=== PATIENT | male | born 1935 | race Hispanic/Latino ===

== ENCOUNTER 2016-08-15 17:10 | Inpatient (IN) | payer MEDICARE, OTHER ==
[2016-08-15 17:11] VITALS: PULSE 52
--- NOTE | 2016-08-15 17:18 | ED PDOC ---
Arrival/HPI - General Time Seen by Provider: 08/15/16 17:14 Historian: Assisted EM Caveat: Dementia - History of Present Illness Narrative History of Present Illness (Text): 08/15/16 17:16 A 80 year old male, whose past medical history includes aspiration pneumonia, RI and CAD, who is sent to the emergency department from the residential for chest congestion and hypoxia. HPI and ROS limited due to patient's dementia. The patient is a DNR/DNI. PMD: Dr. Long Past Medical History - Provider Review Nursing Documentation Reviewed: Yes - Infectious Disease Hx of Infectious Diseases: None - Tetanus Immunization Tetanus Immunization: Unknown - Cardiac Hx Pacemaker: No - Pulmonary Hx Respiratory Disorders: No Hx Bronchitis: Yes - Neurological Hx Paralysis: No - HEENT Hx HEENT Disorder: No - Renal Hx Renal Disorder: No - Endocrine/Metabolic Hx Endocrine Disorders: No - Hematological/Oncological Hx Blood Transfusions: Yes Hx Blood Transfusion Reaction: No - Integumentary Hx Dermatological Disorder: Yes Other/Comment: SKIN CANCER, SACRAL WOUND FROM HOME- DTI, BILATERAL FOOT DROP, bilateral heel ulcers - Musculoskeletal/Rheumatological Hx Musculoskeletal Disorders: Yes - Gastrointestinal Hx Gastroesophageal Reflux: Yes - Genitourinary/Gynecological Hx Genitourinary Disorders: Yes Hx Prostate Problems: Yes (bph) - Psychiatric Hx Emotional Abuse: No Hx Physical Abuse: No Hx Substance Use: No - Past Surgical History Past Surgical History: Non-Contributing - Surgical History Hx Cardiac Catheterization: Yes (with stents) - Anesthesia Hx Anesthesia Reactions: No Hx Malignant Hyperthermia: No - Suicidal Assessment Feels Threatened In Home Enviroment: No Family/Social History - Physician Review Nursing Documentation Reviewed: Yes Family/Social History: No Known Family HX Smoking Status: Never Smoked Hx Alcohol Use: No Hx Substance Use: No Hx Substance Use Treatment: No Allergies/Home Meds Allergies/Adverse Reactions: Allergies No Known Allergies Allergy (Verified 08/15/16 17:38) Home Medications: Home Meds Medication Instructions Recorded Confirmed Aspirin 325 mg GT DAILY 08/15/16 08/15/16 Docusate Sodium 100 mg GT DAILY 08/15/16 08/15/16 Famotidine [Pepcid] 20 mg GT DAILY 08/15/16 08/15/16 Lisinopril [Zestril] 2.5 mg GT BID 08/15/16 08/15/16 Metoprolol Succinate [Toprol XL] 12.5 mg GT BID 08/15/16 08/15/16 Multivitamin [Men's Multi-Vitamin] 1 mg GT DAILY 08/15/16 08/15/16 Review of Systems - Review of Systems Systems not reviewed;Unavailable: Dementia Physical Exam - Physical Exam Narrative Physical Exam (Text): - Systems Exam Head: Present: Atraumatic, Normocephalic Pupils: Present: PERRL Extraocular Muscles: Present: EOMI Conjunctiva: Present: Normal Mouth: Present: Moist Mucous Membranes Neck: Present: Normal Range of Motion. No: MIDLINE TENDERNESS, Paraspinal Tenderness Respiratory/Chest: Present: Rhonchi and Rales (right lung). No: Respiratory Distress, Accessory Muscle Use, Tachypneic Cardiovascular: Present: Regular Rate and Rhythm, Normal S1, S2, Peripheral Pulses Present. No: Murmurs Abdomen: Present: Normal Bowel Sounds, No: Tenderness, Peritoneal Signs, Rebound, Guarding, Distention Back: Present: Normal Inspection. No: Midline Tenderness, Paraspinal Tenderness Upper Extremity: Present: Normal Inspection. No: Cyanosis, Edema Lower Extremity: Present: Normal Inspection. No: Edema Neurological: Present: Patient is responsive to verbal stimuli and is able to follow commands. Skin: Present: Warm, Dry, Normal Color. No: Rashes Lymphatic: Present: OX3, NI, NC Psychiatric: Present: Awake and Alert. Vital Signs Reviewed: Yes Vital Signs Pulse Resp BP Pulse Ox 08/15/16 19:11 30 H 98 08/15/16 17:25 82 30 H 161/97 H 99 Temperature: Afebrile Blood Pressure: Hypertensive Pulse: Regular Respiratory Rate: Normal Appearance: Positive for: Non-Toxic Pain Distress: None Mental Status: No: Alert and Oriented X 3, Confused, Agitated, Lethargic, Comatose Medical Decision Making ED Course and Treatment: 08/15/16 17:16 Impression: A 80 year old male with chest congestion and hypoxia. On physical examination the patient is responsive to verbal stimuli and is able to follow commands. On auscultation the patient has rhonchi and rales at the right lung rob. Differential Diagnosis include but are not limited to: aspiration pneumonia vs. dehydration Plan: -- Chest X-ray -- Labs -- Urinalysis -- Zosyn and IV Fluids -- Reassess and disposition Prior Visits: Notes and results from previous visits were reviewed. The patient was last admitted to the hospital for aspirated pneumonia. Progress Notes: 08/15/16 17:20 Dr. Long in the emergency department evaluating the patient. 08/15/16 17:55 Chest x-ray: As read by me shows cardiomegaly and diffuse infiltrate on the right side. Patient received abx for aspiration pneumonia. Case discussed with Dr. Long in great details, who agrees with the plan to admit the patient to Med/Surg under his services. He states to give the patient Dextrose 5% & 0.45% Sodium Chloride in IV at 75 mls/hr. - Lab Interpretations Lab Results: 08/15/16 17:20 08/15/16 17:20 Lab Results 08/15/16 17:21: POC Glucose (mg/dL) 158 H 08/15/16 17:20: WBC 4.9, RBC 2.86 L, Hgb 9.2 L, Hct 28.6 L, MCV 100.0, MCH 32.2 , MCHC 32.2, RDW 15.7 H, Plt Count 192, MPV 9.8, Gran % 76.5 H, Lymph % (Auto) 13.4 L, Stanley % (Auto) 8.7 H, Eos % (Auto) 1.2 L, Baso % (Auto) 0.2, Gran # 3.78 , Lymph # 0.7 L, Stanley # 0.4, Eos # 0.1, Baso # 0.01, PT 13.6 H, INR 1.26 H, APTT 31.1 H, Sodium 142, Potassium 3.4 L, Chloride 102, Carbon Dioxide 31, Anion Gap 12, BUN 41 H, Creatinine 0.6, Est GFR ( Amer) > 60, Est GFR ( Non-Af Amer) > 60, Random Glucose 133 H, Calcium 8.5, Total Bilirubin 0.8, AST 28, ALT 24, Alkaline Phosphatase 55, Total Protein 6.1, Albumin 3.0, Globulin 3.1, Albumin/Globulin Ratio 1.0 L I have reviewed the lab results: Yes - RAD Interpretation Radiology Orders: 08/15/16 17:23 CHEST PORTABLE [RAD] Stat - Medication Orders Current Medication Orders: Albuterol/Ipratropium (Duoneb 3 Mg/0.5 Mg (3 Ml) Ud) 3 ml IH H2ATVBC [facility] Aspirin (Aspirin) 325 mg GT DAILY [facility] Docusate Sodium (Colace Liquid) 100 mg GT DAILY [facility] Famotidine (Pepcid) 20 mg GT DAILY [facility] Dextrose/Sodium Chloride (Dextrose 5%/0.45% Ns 1000 Ml) 1,000 mls @ 50 mls/hr IV .Q20H [facility] Lisinopril (Zestril) 2.5 mg GT BID [facility] Metoprolol Tartrate (Lopressor) 25 mg PO BID [facility] Discontinued Medications Sodium Chloride (Sodium Chloride 0.9%) 1,000 mls @ 1,000 mls/hr IV .Q1H [facility] Stop: 08/15/16 18:24 Last Admin: 08/15/16 18:11 Dose: 1,000 MLS/HR eMAR Start Stop Document 08/15/16 18:11 JOL (Rec: 08/15/16 18:12 [id number] Intravenous Solution Start Date 08/15/16 Start Time 18:12 End Date 08/15/16 End time 19:12 Total Infusion Time 60 Piperacillin Sod/Tazobactam Sod (Zosyn 4.5 Gm In Ns 100ml) 100 mls @ 200 mls/ hr IVPB STAT [facility] PRN Reason: Protocol Stop: 08/15/16 17:54 Last Admin: 08/15/16 18:12 Dose: 200 MLS/HR eMAR Start Stop Document 08/15/16 18:12 JOL (Rec: 08/15/16 18:12 [id number] Intravenous Solution Start Date 08/15/16 Start Time 18:12 End Date 08/15/16 End time 18:42 Total Infusion Time 30 Magnesium Sulfate/Dextrose (Magnesium Sulfate 1 Gm/100 Ml D5w) 100 mls @ 100 mls/hr IVPB ONCE ONE Stop: 08/15/16 19:13 Last Admin: 08/15/16 19:17 Dose: 100 MLS/HR eMAR Start Stop Document 08/15/16 19:17 JOL (Rec: 08/15/16 19:17 [id number] Intravenous Solution Start Date 08/15/16 Start Time 19:17 End Date 08/15/16 End time 20:17 Total Infusion Time 60 Dextrose/Sodium Chloride (Dextrose 5%/0.45% Ns 1000 Ml) 1,000 mls @ 75 mls/hr IV .[id number] [facility] Last Admin: 08/15/16 19:17 Dose: 75 MLS/HR eMAR Start Stop Document 08/15/16 19:17 JERMAN (Rec: 08/15/16 19:17 JOL [id number]) Intravenous Solution Start Date 08/15/16 Start Time 19:17 Metoprolol Succinate (Toprol Xl) 12.5 mg PO BID [facility] Potassium Chloride (K-Dur 20 Meq Er Tab) 40 meq PO STAT STA Stop: 08/15/16 18:15 Last Admin: 08/15/16 19:17 Dose: 40 MEQ - Scribe Statement The provider has reviewed the documentation as recorded by the Christianoibyamile Awad Provider Scribe Attestation: All medical record entries made by the Scribe were at my direction and personally dictated by me. I have reviewed the chart and agree that the record accurately reflects my personal performance of the history, physical exam, medical decision making, and the department course for this patient. I have also personally directed, reviewed, and agree with the discharge instructions and disposition. Disposition/Present on Arrival - Present on Arrival Any Indicators Present on Arrival: No History of DVT/PE: No History of Uncontrolled Diabetes: No Urinary Catheter: No History Surgical Site Infection Following: None - Disposition Have Diagnosis and Disposition been Completed?: Yes Diagnosis: Pneumonia Disposition: HOSPITALIZED Disposition Time: 17:20 Patient Plan: Admission Patient Problems: Current Active Problems Problem Status Diagnosed Altered mental status Acute Dysphagia Acute Condition: FAIR
[2016-08-15] MEDS ORDERED: Sodium Chloride 0.9% 1,000 ML IV STA (17:25)
[2016-08-15] MEDS ORDERED: Piperacill/Tazo 4.5gm in NS 100 ML IVPB STA (17:25)
[2016-08-15 17:31] LABS: ADD MANUAL DIFF? NO
[2016-08-15 17:37] LABS: BASO # 0.01 K/mm3 (0.0-2.0); BASO % 0.2 % (0.0-3.0); EOS # 0.1 (0.0-0.7); EOS % 1.2 % (1.5-5.0); GRAN # 3.78 (1.4-6.5); GRAN % 76.5 % (50.0-68.0); HEMATOCRIT 28.6 % (42.0-52.0); LYMPH # 0.7 (1.2-3.4); LYMPH % 13.4 % (22.0-35.0); MEAN CORPUSCULAR HEMOGLOBIN 32.2 pg (25.0-35.0); MEAN CORPUSCULAR HGB CONC 32.2 g/dl (31.0-37.0); MEAN PLATELET VOLUME 9.8 fl (7.0-11.0); MONO # 0.4 (0.1-0.6); MONO % 8.7 % (1.0-6.0); PLATELET COUNT 192 10^3/uL (120.0-450.0); RED CELL DISTRIBUTION WIDTH 15.7 % (11.5-14.5); WHITE BLOOD COUNT 4.9 10^3/ul (4.5-11.0)
[2016-08-15 17:48] LABS: ALKALINE PHOSPHATASE 55 U/L (38-133); ALT/SGPT 24 U/L (7-56); AST/SGOT 28 U/L (15-59); BILIRUBIN,TOTAL 0.8 mg/dL (0.2-1.3); BLOOD UREA NITROGEN 41 mg/dL (7-21); CALCIUM 8.5 mg/dL (8.4-10.5); CARBON DIOXIDE 31 mmol/L (21-33); CHLORIDE 102 mmol/L (98-107); GFR AFRICAN-AMERICAN > 60; GLUCOSE,RANDOM 133 mg/dL (70-110); POTASSIUM 3.4 mmol/L (3.6-5.0); SODIUM 142 mmol/L (132-148); TOTAL PROTEIN 6.1 g/dL (5.8-8.3)
[2016-08-15 17:52] LABS: INR 1.26 (0.93-1.08); PARTIAL THROMBOPLASTIN TIME 31.1 Seconds (23.7-30.8)
--- NOTE | 2016-08-15 18:10 | RAD ---
HISTORY: cough COMPARISON: 07/03/2016 FINDINGS: LUNGS: There is extensive perihilar consolidation, larger on the right. PLEURA: There are probable bilateral small pleural effusions. No pneumothorax. CARDIOVASCULAR: There is severe cardiomegaly. Atherosclerotic aortic arch calcifications are present. OSSEOUS STRUCTURES: No significant abnormalities. VISUALIZED UPPER ABDOMEN: Normal. OTHER FINDINGS: None. IMPRESSION: Findings may represent bilateral perihilar consolidations, worse on the right alternatively, findings could be related to congestive heart failure and pulmonary edema. Clinical correlation and follow-up is advised
[2016-08-15] MEDS ORDERED: Potassium Chloride 20 mEq ER Tab PO STA (18:14)
[2016-08-15] MEDS ORDERED: Dextrose 5%/0.45% NS 1,000 ML IV SCH (18:30)
[2016-08-15 20:17] LABS: PH,URINE 6.5 (4.7-8.0); URINE BILIRUBIN NEGATIVE (NEGATIVE); URINE BLOOD MODERATE (NEGATIVE); URINE GLUCOSE (UA) NEGATIVE (NEGATIVE); URINE KETONE NEGATIVE (NEGATIVE); URINE LEUKOCYTE ESTERASE LARGE Leu/uL (NEGATIVE); URINE PROTEIN 100 mg/dL (<30 mg/dL)
[2016-08-15 20:23] LABS: URINE APPEARANCE CLEAR (CLEAR)
[2016-08-15 20:24] LABS: URINE AMORPHOUS SEDIMENT TRACE; URINE BACTERIA SMALL (NEG); URINE EPITHELIAL CELLS MANY /hpf (0-5); URINE RBC 25 - 30 /hpf (0-2); URINE WBC 15 - 20 /hpf (0-6)
[2016-08-15] MEDS: Dextrose 5%/0.45% NS 1,000 ML IV SCH (21:05)
[2016-08-15 21:39] VITALS: BMI 21.4
[2016-08-15] MEDS: Meropenem 1g/NS 100mL IVPB 100 ML IVPB SCH (21:57)
[2016-08-16] MEDS: Albuterol-Ipratrop 3 mg / 0.5 (3 ml) UD IH SCH ×4 (02:40→20:16)
--- NOTE | 2016-08-16 05:09 | CP.PCM.PN ---
Subjective - Date & Time of Evaluation Date of Evaluation: 08/16/16 Time of Evaluation: 05:09 - Subjective Subjective: Patient was evaluated at bedside because nurse calls and tells that BP is 151/97 , HR 84 /min ,Pulse ox 97% 2L/min.And he is lethargic. She spoke to when she got orders and Dr. Long is aware of lethargy. Patient is arousable with deep painful stimuli-sternal rub. Medical record was reviewed. This 80 year old male is here from a care home for chest congestion and hypoxia,AMS, anemia , hypokalemia. Has PMH of fracture pubic ramus spinal stenosis CAD multiple stents atrial fibrillation retroperitoneal bleed neruopathy in legs. multiple falls HLD HTN CVA's. Left carotid disease. Osteomyelitis of left heel BPH UTI's PNA bilateral foot drop. Skin cancer. Vascular dementia. Indwelling catheter. Cholecysterctomy. L3 Kyphoplasty. Gastrostomy tube placement. Objective - Vital Signs/Intake and Output Vital Signs (last 24 hours): Temp Pulse Resp BP Pulse Ox 97.6 F 82 18 136/100 H 98 08/15/16 20:47 08/15/16 17:25 08/15/16 20:47 08/15/16 20:47 08/15/16 19:11 Intake and Output: 08/15/16 08/16/16 18:59 06:59 Output Total 150 Balance -150 - Medications Medications: Current Medications Albuterol/Ipratropium (Duoneb 3 Mg/0.5 Mg (3 Ml) Ud) 3 ml IH [id number] Last Admin: 08/16/16 02:40 Dose: 3 ml Aspirin (Aspirin) 325 mg GT DAILY [facility] Docusate Sodium (Colace Liquid) 100 mg GT DAILY [facility] Famotidine (Pepcid) 20 mg GT DAILY [facility] Dextrose/Sodium Chloride (Dextrose 5%/0.45% Ns 1000 Ml) 1,000 mls @ 50 mls/hr IV .Q20H [facility] Last Admin: 08/15/16 21:05 Dose: Not Given Meropenem 1g/NS 100mL IVPB (Meropenem 1g/Ns 100ml Ivpb) 100 mls @ 100 mls/hr IVPB Q12 [facility] PRN Reason: Protocol Stop: 08/29/16 22:01 Last Admin: 08/15/16 21:57 Dose: 100 mls/hr Lisinopril (Zestril) 2.5 mg GT BID [facility] Metoprolol Tartrate (Lopressor) 25 mg GT BID [facility] - Labs Labs: PT 13.6 Seconds (9.9-11.8) H 08/15/16 17:20 INR 1.26 (0.93-1.08) H 08/15/16 17:20 APTT 31.1 Seconds (23.7-30.8) H 08/15/16 17:20 - Constitutional Appears: No Acute Distress - Head Exam Head Exam: ATRAUMATIC, NORMAL INSPECTION - Eye Exam Eye Exam: Normal appearance - ENT Exam ENT Exam: Normal External Ear Exam - Neck Exam Neck Exam: Normal Inspection - Respiratory Exam Respiratory Exam: NORMAL BREATHING PATTERN - Cardiovascular Exam Cardiovascular Exam: absent: JVD - GI/Abdominal Exam GI & Abdominal Exam: absent: Distended - Rectal Exam Rectal Exam: Deferred - Extremities Exam Extremities Exam: Normal Inspection - Back Exam Back Exam: NORMAL INSPECTION - Neurological Exam Neurological Exam: Altered - Psychiatric Exam Additional comments: can not evaluate. - Skin Skin Exam: Normal Color Assessment and Plan - Assessment and Plan (Free Text) Assessment: A/P: Elevated blood pressure. AMS. Hypokalemia. Anemia. Give morning dose of lopressor now instead of at 10:00AM. Discussed with Dr. Long. Will get CT head without contrast.
--- NOTE | 2016-08-16 06:33 | CT ---
EXAM: CT Head Without Intravenous Contrast. CLINICAL HISTORY: 80 years old, male; Signs and symptoms; Malaise or fatigue; Additional info: Lethargy TECHNIQUE: Axial computed tomography images of the head/brain without intravenous contrast. This CT exam was performed using one or more of the following dose reduction techniques: automated exposure control, adjustment of the mA and/or kV according to patient size, and/or use of iterative reconstruction technique. EXAM DATE/TIME: 08/16/2016 5:33 AM COMPARISON: Prior head CT of 05/21/2016 the FINDINGS: BRAIN: Focal areas of low density are seen in the basal ganglia bilaterally, most compatible with bilateral old/chronic lacunar infarcts. Extensive areas of low density seen in the white matter bilaterally. This is a nonspecific finding, however, is most likely secondary to marked chronic small vessel ischemic changes, in a patient of this age. Diffuse, marked, age-related cortical atrophy and ventriculomegaly. No significant acute abnormality identified. No acute hemorrhage seen within the brain. No acute extra-axial fluid collections visualized. No evidence of significant mass effect within the brain. VENTRICLES: See above. BONES/JOINTS: No acute fractures or other acute bony abnormality noted. SOFT TISSUES: No acute abnormality of the visualized soft tissues is seen. VASCULATURE: Atherosclerotic calcification. SINUSES: Visualized paranasal sinuses appear clear. MASTOID AIR CELLS: Mastoid air cells appear clear. IMPRESSION: - No acute findings seen within the brain. - See above for remaining findings.
[2016-08-16 06:41] LABS: ADD MANUAL DIFF? NO
[2016-08-16 06:47] LABS: BASO # 0.01 K/mm3 (0.0-2.0); BASO % 0.3 % (0.0-3.0); EOS # 0.1 (0.0-0.7); GRAN # 2.96 (1.4-6.5); GRAN % 75.1 % (50.0-68.0); HEMATOCRIT 28.3 % (42.0-52.0); LYMPH # 0.5 (1.2-3.4); LYMPH % 12.2 % (22.0-35.0); MEAN CORPUSCULAR HEMOGLOBIN 32.2 pg (25.0-35.0); MEAN CORPUSCULAR HGB CONC 32.2 g/dl (31.0-37.0); MEAN PLATELET VOLUME 9.4 fl (7.0-11.0); MONO # 0.4 (0.1-0.6); MONO % 10.4 % (1.0-6.0); PLATELET COUNT 184 10^3/uL (120.0-450.0); RED CELL DISTRIBUTION WIDTH 15.3 % (11.5-14.5); WHITE BLOOD COUNT 3.9 10^3/ul (4.5-11.0)
[2016-08-16 07:17] LABS: BLOOD UREA NITROGEN 33 mg/dL (7-21); CALCIUM 8.1 mg/dL (8.4-10.5); CARBON DIOXIDE 31 mmol/L (21-33); CHLORIDE 107 mmol/L (98-107); GFR AFRICAN-AMERICAN > 60; GLUCOSE,RANDOM 108 mg/dL (70-110); POTASSIUM 3.3 mmol/L (3.6-5.0); SODIUM 145 mmol/L (132-148)
[2016-08-16] MEDS: Acetylcysteine 20% Inhal Soln (4ml) IH SCH ×2 (07:53→20:16)
[2016-08-16] MEDS: Potassium Chloride 20 mEq 100 ML IVPB SCH ×2 (08:28→13:03)
--- NOTE | 2016-08-16 09:16 | CON ---
DATE: 08/16/2016 REASON FOR CONSULTATION: Pneumonia. REFERRING PHYSICIAN: Dr. Cornelia Long. History is obtained via extensive discussion with the night nurse. I have also reviewed the chart at length. HISTORY OF PRESENT ILLNESS: The patient is a 80-year-old chronically ill male, alf resident, with past medical history significant for chronic dysphagia, status post percutaneous endoscopic gastrostomy tube placement, recurrent aspiration pneumonia, multiple strokes; coronary artery disease, multiple cardiac stents; pulmonary hypertension, atrial fibrillation - who was transferred from the alf -- for increasing lethargy, cough, and oxygen desaturation. The patient is not short of breath at rest. The nurse does note some very thick mucus secretions. There is no history of chest pain, coughing up of blood or chest pain - made worse with deep respirations. There is no history of temperatures, chills or infectious exposure. There is no history of night sweats, weight loss or appetite change prior to the above events. No history of leg or calf pains. No history of syncope or diaphoresis. No history of recent travel or trauma. REVIEW OF SYSTEMS: No history of nausea, vomiting or diarrhea. No acute urinary symptoms. No new musculoskeletal complaints. Rest of review of systems is negative. ALLERGIES: No known allergies. SOCIAL HISTORY: Negative for tobacco, negative for alcohol. FAMILY HISTORY: No inheritable diseases. HOME MEDICATIONS: Include multivitamins, Toprol, Zestril, DuoNeb, Pepcid and aspirin. PHYSICAL EXAMINATION: GENERAL: The patient is not short of breath at rest. He is not using accessory muscles for breathing. He is lethargic, but arousable. VITAL SIGNS: Temperature is 97.6, pulse 84, respirations 18, blood pressure 151 /97. Oxygen saturation on nasal cannula is 98%. HEENT: Normocephalic, atraumatic. NECK: No JVD. CARDIOVASCULAR: Positive S1, S2. No S3. LUNGS: Crackles at both bases. Minimal bilateral rhonchi. No wheezing. EXTREMITIES: No clubbing, cyanosis, or edema. Calves are nontender to palpation. GASTROINTESTINAL: Abdomen is soft, nontender, nondistended. Bowel sounds are positive. There is a PEG tube in place. SKIN: No acute rash. NEUROLOGIC: Limited at the present time. PERTINENT LABORATORY DATA: Chest x-ray was done yesterday and reviewed. There are patchy bilateral infiltrates noted. There is possible underlying pulmonary vascular congestive changes. CBC: White count 3.9, hemoglobin 9.1, hematocrit 28.3, platelets of 184. INR 1.26. Complete metabolic profile: Potassium 3.4, BUN 41, glucose 133. Rest of the metabolic profile is within normal limits. Urinalysis in the Emergency Room: Urine nitrite positive, urine leukocyte esterase large. IMPRESSION: 1. Recurrent aspiration pneumonia. 2. Mild bronchospasm. 3. Chronic dysphagia. 4. History of multiple strokes. 5. Coronary artery disease. 6. Rule out urinary tract infection. PLAN: Again, I did discuss the case with the night nurse at length and also reviewed the chart. The patient presents to [facility] - transferred from the alf - for increasing lethargy, cough, and oxygen desaturation. I did review the x-ray as above. There are bilateral patchy infiltrates noted. As above, I do question whether there are underlying pulmonary vascular congestive changes. I will order a stat B-type natriuretic peptide to be done this morning. Cardiology evaluation with Dr. Hartman has been ordered. The patient does have chronic atrial fibrillation. On physical exam, the patient is in mild bronchospasm. However, there is no significant alveolar arterial gradient. Oxygen saturation on nasal cannula is 98%. The nurse does report the patient is coughing up thick secretions. I will add Mucomyst-- to the already ordered DuoNeb treatments. I will also order aspiration precautions. Pancultures have been ordered and will be analyzed when feasible. The patient has been started on antibiotic therapy - as per Dr. Bhatt. Procalcitonin has been ordered. The patient does appear more stable this morning - compared to yesterday. However, his overall status/prognosis remains very guarded at best. I will discuss the above with Dr. Long this morning. Thank you very much for this pulmonary consultation. Audi Denis MD cc: [id number] TT: 08/16/2016 09:15:48 Confirmation # [id number] Dictation # [id number] dhaval TOLBERT
--- NOTE | 2016-08-16 09:24 | HP ---
HISTORY OF PRESENT ILLNESS: A 80-year-old male sent from [facility] after being reported to have been congested with a low blood oxygen. The patient arrived in the Emergency Room and was l ethargic. PAST MEDICAL HISTORY: Dementia, chronic cerebral ischemic changes with chronic lacunar infarcts that are old, he has a history of carotid stenosis on the left, a history of atrial fibrillation, bilater al footdrop, herniated lumbar disks, hypertension, pneumonia, BPH, urinary tract infections, vascular insufficiency, history of pleural effusions, history of aspiration, feeding PEG. ALLERGIES: There are no known allergies to date. SOCIAL HISTORY: Nonsmoker, nondrinker, nondrug user. There is a living will. He is a DNR/DNI. REVIEW OF SYSTEMS: Ten systems are reviewed. Pertinent findings is that the patient is arousable to pain. PHYSICAL EXAMINATION: VITAL SIGNS: His temp was reported as 97.4 rectally, his pulse was 82, his respirations were 22, blo od pressure was 161/97, oxygen sat was reported at 98% on 2 liters of nasal oxygen. HEART: An irregular S1, S2 rhythm with a grade II/ systolic murmur. LUNGS: Show bibasilar rhonchi. No wheezing was audible. ABDOMEN: Soft, scaphoid, positive bowel sounds. Feeding PEG was in place. EXTREMITIES: Show no evidence of edema. LABORATORY DATA: The patient had a sodium 142, potassium 3.4, chloride 102, the CO2 is 31, the BUN i s 41, the creatinine is 0.6. Random blood sugar was 133. Liver function tests were normal. The PT was 13.6 with an INR of 1.26, PTT of 31.1. CBC showed WBC of 4.9, RBC 2.86, hemoglobin 9.2, hematocr it 28.6 while the platelet count was 192. Urinalysis showed small bacteria, large amount of esterase , 25-30 RBCs, 15-20 WBCs, moderate amount of blood, positive for nitrites. The chest x-ray was reported by radiology to show findings suggestive of vascular congestion; however , review of the chest x-ray with the Emergency Room and with pulmonary raises a question as to whethe r there is more symmetric bilateral infiltrates which raises the question of aspiration pneumonia in this patient who is at risk for this. Also, he is a resident of a snf and was recently in [facility] for admission. A CAT scan of the head was performed which showed chronic changes, as per the radiologist's review, with no acute findings. IMPRESSION: An elderly snf resident with multiple medical problems admitted for what clinic ally may look like a pneumonia with bilateral patchy infiltrates that are symmetric on a chest x-ray after review with pulmonary. The patient was pancultured in the Emergency Room and initiated on anti biotics. A consult with infectious disease has been requested. A procalcitonin and a BMP will be re quested. A neurological consult will be requested as well, as well as a cardiology consult. Will co ntinue to monitor the patient closely, maintain his supportive care and respect his DNR/DNI. All cli nical findings have been discussed with pulmonary, with the Emergency Room staff and with the family. Cornelia Long MD cc: [id number] TT: 08/16/2016 09:23:53 dhaval
[2016-08-16] MEDS ORDERED: Metoprolol Succinate 25 mg XL Tab PO SCH (10:00)
[2016-08-16] MEDS: Meropenem 1g/NS 100mL IVPB 100 ML IVPB SCH ×2 (10:21→21:13)
[2016-08-16] MEDS ORDERED: Potassium Chloride 20 mEq/15 ml LIQ UD PO STA (13:16)
--- NOTE | 2016-08-16 14:59 | CON ---
DATE: 08/16/2016 HISTORY: The patient is a 80-year-old male who presented from a halfway with a diagnosis of pne umonia. The patient denies shortness of breath, denies chest pain. PAST MEDICAL HISTORY: Notable for a history of an old inferior wall myocardial infarction with PTCA and stent in the past. Currently, his longstanding neuromuscular disease has left him with ____ response. He is bedbound. SOCIAL HISTORY: The patient lives in a halfway. REVIEW OF SYSTEMS: A 14-point review of systems was free of cardiac symptomatology. PHYSICAL EXAMINATION: VITAL SIGNS: Stable, heart rate is stable. NECK: Negative JVD. LUNGS: Decreased breath sounds without rales. HEART: Reveals S1, S2. EXTREMITIES: Without edema. EKG and laboratories are pending, [employer] is unavailable at this time. IMPRESSION: 1. Pneumonia. 2. Old inferior wall myocardial infarction. 3. Coronary artery disease. 4. Neuromuscular disease. 5. Dysphagia. PLAN: Given these findings, we will review his labs once [employer] is available. There are no acute cardiac issues at this time. Justen Hartman MD cc: [id number] TT: 08/16/2016 14:58:29 Confirmation # [id number] Dictation # [id number] sn
--- NOTE | 2016-08-16 16:07 | CP.PCM.CON ---
History of Present Illness - History of Present Illness History of Present Illness: 80 year old male with PMH of atrial fibrillation, HTN, peripheral vascular disease, history of cerebrovascular accident with left sided carotid artery disease, benign prostatic hyperplasia, dementia, history of left lower lobe healthcare-associated pneumonia was brought in from the half-way because of chest congestion, shortness of breath and lethargy. There was no note of fever, no loss of consciousness, no vomiting, no diarrhea, occasional cough. In the ED , he was noted to be somewhat lethargic. Infectious Diseases consult is requested to further evaluate and manage. Review of Systems - Review of Systems Systems not reviewed;Unavailable: Dementia Past Patient History - Infectious Disease Hx of Infectious Diseases: None - Tetanus Immunizations Tetanus Immunization: Unknown - Past Medical History & Family History Past Medical History?: Yes Past Family History: Reviewed and not pertinent - Past Social History Smoking Status: Smoker Currrent Status Unknown Alcohol: None Drugs: Denies - CARDIAC Hx Pacemaker: No - PULMONARY Hx Respiratory Disorders: No Hx Bronchitis: Yes - NEUROLOGICAL Hx Paralysis: No - HEENT Hx HEENT Problems: No - RENAL Hx Chronic Kidney Disease: No - ENDOCRINE/METABOLIC Hx Endocrine Disorders: No - HEMATOLOGICAL/ONCOLOGICAL Hx Blood Transfusions: Yes Hx Blood Transfusion Reaction: No - INTEGUMENTARY Hx Dermatological Problems: Yes Other/Comment: SKIN CANCER, SACRAL WOUND FROM HOME- DTI, BILATERAL FOOT DROP, bilateral heel ulcers - MUSCULOSKELETAL/RHEUMATOLOGICAL Hx Falls: Yes - GASTROINTESTINAL Hx Gastroesophageal Reflux: Yes - GENITOURINARY/GYNECOLOGICAL Hx Genitourinary Disorders: Yes Hx Prostate Problems: Yes (bph) - PSYCHIATRIC Hx Emotional Abuse: No Hx Physical Abuse: No Hx Substance Use: No - SURGICAL HISTORY Hx Cardiac Catheterization: Yes (with stents) - ANESTHESIA Hx Anesthesia Reactions: No Hx Malignant Hyperthermia: No Meds Allergies/Adverse Reactions: Allergies Allergy/AdvReac Type Severity Reaction Status Date / Time No Known Allergies Allergy Verified 08/15/16 17:38 - Medications Medications: Current Medications Albuterol/Ipratropium (Duoneb 3 Mg/0.5 Mg (3 Ml) Ud) 3 ml [id number] [facility] Last Admin: 08/16/16 02:40 Dose: 3 ml Aspirin (Aspirin) 325 mg GT DAILY [facility] Docusate Sodium (Colace Liquid) 100 mg GT DAILY [facility] Famotidine (Pepcid) 20 mg GT DAILY [facility] Dextrose/Sodium Chloride (Dextrose 5%/0.45% Ns 1000 Ml) 1,000 mls @ 50 mls/hr IV .Q20H [facility] Last Admin: 08/15/16 21:05 Dose: Not Given Meropenem 1g/NS 100mL IVPB (Meropenem 1g/Ns 100ml Ivpb) 100 mls @ 100 mls/hr IVPB Q12 [facility] PRN Reason: Protocol Stop: 08/29/16 22:01 Last Admin: 08/15/16 21:57 Dose: 100 mls/hr Lisinopril (Zestril) 2.5 mg GT BID [facility] Metoprolol Tartrate (Lopressor) 25 mg GT BID [facility] Last Admin: 08/16/16 05:33 Dose: 25 mg Physical Exam - Constitutional Appears: Other (somewhat lethargic but easily arousable and answers few questions) - Head Exam Head Exam: NORMAL INSPECTION - Neck Exam Neck exam: Negative for: Lymphadenopathy, Meningismus - Cardiovascular Exam Cardiovascular Exam: +S1, +S2 - GI/Abdominal Exam GI & Abdominal Exam: Soft. absent: Tenderness Results - Vital Signs Recent Vital Signs: Last Vital Signs Temp 97.6 F 08/15/16 20:47 Pulse 84 08/16/16 05:33 Resp 18 08/15/16 20:47 BP 151/97 H 08/16/16 05:33 Pulse Ox 98 08/15/16 19:11 - Labs Result Diagrams: 08/16/16 05:45 08/16/16 05:45 Labs: Laboratory Results - last 24 hr 08/15/16 18:45 Urine Color yellow Urine Appearance Clear Urine pH 6.5 Ur Specific [place] 1.020 Urine Protein 100 H Urine Glucose (UA) Negative Urine Ketones Negative Urine Blood Moderate H Urine Nitrate Positive H Urine Bilirubin Negative Urine Urobilinogen 4.0 H Ur Leukocyte Esterase Large H Urine RBC 25 - 30 Urine WBC 15 - 20 Ur Epithelial Cells Many Amorphous Sediment Trace Urine Bacteria Small Assessment & Plan - Assessment and Plan (Free Text) Plan: Assessment Consider aspiration pneumonia, healthcare-associated history of left lower lobe healthcare-associated pneumonia atrial fibrillation HTN peripheral vascular disease history of cerebrovascular accident with left sided carotid artery disease benign prostatic hyperplasia dementia Plan started Merrem pending blood cx, sputum; will add Doxycycline as well Reviewed Dr. Denis's evaluation Will follow clinically
[2016-08-16] MEDS: Dextrose 5%/0.45% NS 1,000 ML IV SCH (16:42)
--- NOTE | 2016-08-16 19:34 | CON ---
DATE: 08/16/2016 CHIEF COMPLAINT: Followup altered mental status and confusion. HISTORY OF PRESENT ILLNESS: This is a 80-year-old man with past medical history of chronic atrial fi brillation, was once on Coumadin, history of coronary artery disease, history of small left middle ce rebral artery frontal and parietal infarcts which were embolic in nature, history of spinal disorder, history of bilateral foot drop, history of chronic compression fractures, history of benign prostati c hypertrophy, urinary tract infections, history of left lower lobe healthcare-associated pneumonia, who was brought in from the alf because had chest congestion, shortness of breath and lethar gy. Therefore, I was consulted for his increased lethargy from his baseline. Currently, he is under going workup for underlying pneumonia possibility. He has been put on antibiotics as per ID. His CT head did show some acute intracranial abnormalities. He had some underlying elevated systolic and d iastolic blood pressure when he was brought in as well. Currently, he is minimally verbal as his francisco tejas, moves all extremities, has bilateral foot drop, but is no longer lethargic at this time. CT h ead showed no acute intracranial abnormality, just his old chronic bilateral multifocal infarcts. PAST MEDICAL HISTORY: History of small infarcts in the left MCA distribution, especially the left po sterior frontal parietal which is embolic in nature, history of left carotid artery disease, coronary artery disease status post multiple stents, history of inferior wall WI, spinal stenosis, bilateral foot drop, compression fracture of the spine, BPH, history of chronic afib, was once on Coumadin; his tory of left lower lobe healthcare-associated pneumonia. REVIEW OF SYSTEMS: A 14-point review of systems was negative except as noted in the HPI. MEDICATIONS: Reviewed via nurse's reconciliation sheet. SOCIAL HISTORY: No illicit drug use, smoking or EtOH abuse. FAMILY HISTORY: Noncontributory. PHYSICAL EXAMINATION: VITAL SIGNS: Temperature of 98, pulse rate of 86, blood pressure 160/94, respiratory rate 20, oxygen 98% via room air. GENERAL: The patient is sitting up in bed in no acute distress. HEENT: Atraumatic, normocephalic. PERRLA. Extraocular muscles intact. NECK: Supple, no JVD, no adenopathy noted. LUNGS: Clear to auscultation. No adventitious sounds. HEART: S1, S2, normal rate and rhythm. No murmurs, rubs, or gallops. ABDOMEN: Soft, nontender, nondistended. Bowel sounds are present. EXTREMITIES: No clubbing, no cyanosis. Peripheral pulses 2+ felt bilaterally. He has bilateral genevieve t drop. He has an ulcer on the left heel. NEUROLOGIC: The patient is alert, oriented to self, minimally verbal. Moves all extremities equally , has bilateral foot drop, has increased tone throughout. He has atrophy of his upper and lower extr emity muscle groups proximally and distally. Speech is hypophonic. MOTOR: Increased tone throughout. Toes are equivocal. SENSORY: Withdraws to localized noxious stimulus. DTRs are 1+, absent at the knees and ankles. COORDINATION AND GAIT: Deferred for now. LABORATORIES: Sodium is 145, potassium 3.3, chloride 107, carbon dioxide 31, BUN of 33, creatinine 0 .6, random glucose of 108. ASSESSMENT AND PLAN: This is a 80-year-old man with history of left lower lobe pneumonia, history of chronic atrial fibrillation, was on some Coumadin; history of coronary artery disease status post st ents, history of spinal stenosis, history of bilateral foot drop, history of chronic compression fra ctures, history of benign prostatic hypertrophy, history of urinary tract infections, history of a sm all left middle cerebral, frontal and parietal infarcts, history of metabolic derangements, who came in for shortness of breath as well as chest congestion and increased lethargy. I was consulted for h is increased lethargy. I think his acute lethargy likely could be secondary to toxic metabolic encep halopathy based on his pulmonary congestion. He also had a mild slightly hypertensive urgency as wel l and electrolyte derangements. At this time, recommend: 1. To keep his systolic blood pressure between 120-130 mmHg. 2. Keep on aspirin via GT daily for stroke prevention. 3. Continue ID's recommendations in regards to his antibiotics. 4. Follow up with pulmonology. He is on DuoNebs and acetylcysteine for his pulmonary congestion. 5. Avoid nighttime interruptions and make frequent orientations throughout the day and once stable, can go back to alf. No further neurological workup from my standpoint. Continue with anuradha patino present medical management. Thank you. Please reconsult if necessary. Colin Mcclain MD cc: [phone] TT: 08/16/2016 19:33:18 Confirmation # [id number] Dictation # [id number] mn
[2016-08-17] MEDS: Albuterol-Ipratrop 3 mg / 0.5 (3 ml) UD IH SCH ×4 (01:09→21:20)
[2016-08-17 07:40] LABS: ADD MANUAL DIFF? NO
[2016-08-17] MEDS: Acetylcysteine 20% Inhal Soln (4ml) IH SCH ×2 (07:47→21:20)
[2016-08-17 07:48] LABS: BASO # 0.01 K/mm3 (0.0-2.0); BASO % 0.2 % (0.0-3.0); EOS # 0.1 (0.0-0.7); GRAN # 3.88 (1.4-6.5); GRAN % 76.5 % (50.0-68.0); HEMATOCRIT 30.2 % (42.0-52.0); LYMPH # 0.6 (1.2-3.4); LYMPH % 11.2 % (22.0-35.0); MEAN CELL VOLUME 99.7 fL (80.0-105.0); MEAN CORPUSCULAR HGB CONC 32.1 g/dl (31.0-37.0); MEAN PLATELET VOLUME 9.7 fl (7.0-11.0); MONO # 0.5 (0.1-0.6); MONO % 10.1 % (1.0-6.0); PLATELET COUNT 231 10^3/uL (120.0-450.0); RED CELL DISTRIBUTION WIDTH 15.2 % (11.5-14.5); WHITE BLOOD COUNT 5.1 10^3/ul (4.5-11.0)
[2016-08-17 08:06] LABS: BLOOD UREA NITROGEN 33 mg/dL (7-21); CALCIUM 8.4 mg/dL (8.4-10.5); CARBON DIOXIDE 29 mmol/L (21-33); CHLORIDE 104 mmol/L (98-107); GFR AFRICAN-AMERICAN > 60; GLUCOSE,RANDOM 110 mg/dL (70-110); POTASSIUM 3.3 mmol/L (3.6-5.0); SODIUM 144 mmol/L (132-148)
[2016-08-17] MEDS: Potassium Chloride 20 mEq 100 ML IVPB SCH ×2 (09:03→12:21)
[2016-08-17] MEDS ORDERED: Potassium Chloride 20 mEq/15 ml LIQ UD PO STA (10:12)
--- NOTE | 2016-08-17 10:19 | PN ---
DATE: 08/17/2016 SUBJECTIVE: The patient appears comfortable this morning. He is not short of breath at rest. PHYSICAL EXAMINATION: VITAL SIGNS: Temperature is 98.0, pulse 86, respirations 18-20, blood pressure 160/94. Oxygen saturation on nasal cannula is 98%. HEENT: Normocephalic, atraumatic. No JVD. CARDIOVASCULAR: Positive S1, S2. No S3. LUNGS: Crackles at both bases. Less rhonchi. No wheezing. EXTREMITIES: No clubbing, cyanosis, or edema. Calves are nontender to palpation. GASTROINTESTINAL: Abdomen is soft, nontender, nondistended. Bowel sounds are positive. SKIN: No acute rash. NEUROLOGIC: Limited at the present time. IMPRESSION: 1. Recurrent aspiration pneumonia. 2. Mild bronchospasm. 3. Chronic dysphagia. 4. History of multiple strokes. 5. Coronary artery disease. 6. Rule out congestive heart failure. 7. Rule out urinary tract infection. PLAN: The patient appears very comfortable this morning. He is not short of breath at rest. He is much more awake and alert. He states he is feeling better overall. On physical exam, his bronchospasm is less. In addition, the oxygen saturation on nasal cannula is now 98%. I will continue with the current nebulizer treatments and aspiration precautions for now. I would continue with the antibiotic coverage as per infectious disease. There are no temperatures noted. There is no leukocytosis. I will also order a repeat chest x-ray for tomorrow-- for comparison. Interesting to note, the B-type natriuretic peptide done yesterday was significantly elevated at 13,300. Lasix has been started. Echocardiogram has been ordered. Input by Dr. Hartman ( cardiology) is also noted. The clinical status of the patient is certainly improved compared to the initial presentation. However, the overall status/ prognosis of this patient does remain guarded. I will discuss the above with Dr. Long. Audi Denis MD cc: [id number] TT: 08/17/2016 10:19:07 Confirmation # [id number] Dictation # [id number] geovany TOLBERT
--- NOTE | 2016-08-17 10:42 | PN ---
DATE: 08/17/2016 The patient is awake, has difficulty responding verbally. PHYSICAL EXAMINATION: VITAL SIGNS: No distress noted. Blood pressure is 132/81. The heart rate is 100. NECK: Negative JVD. LUNGS: Decreased breath sounds bilaterally. HEART: Reveals S1, S2. EXTREMITIES: Without edema. LABORATORIES: Hemoglobin is 9.7. Chemistries: The BUN and creatinine is 33 and 0.7. The potassium is 3.3. IMPRESSION: 1. Pneumonia. 2. Atrial fibrillation. 3. Coronary artery disease. 4. History of an old inferior wall myocardial infarction. 5. Hypokalemia. 6. Hypertension. PLAN: Given these findings, we will order potassium to replace his low potassium. Continue IV antibiotics. Justen Hartman MD cc: [id number] TT: 08/17/2016 10:41:33 Confirmation # [id number] Dictation # [id number] ca
[2016-08-17] MEDS: Meropenem 1g/NS 100mL IVPB 100 ML IVPB SCH ×2 (12:29→21:22)
--- NOTE | 2016-08-17 13:34 | RAD ---
HISTORY: reval pneumonia COMPARISON: 07/03/2016 TECHNIQUE: Chest PA and lateral FINDINGS: LUNGS: There is dense consolidation in the right lung and left perihilar region. PLEURA: There are probable small pleural effusions. No pneumothorax apparent. CARDIOVASCULAR: Normal. OSSEOUS STRUCTURES: No significant abnormalities. VISUALIZED UPPER ABDOMEN: Normal. OTHER FINDINGS: None. IMPRESSION: Multifocal pneumonia, worse in the right upper lobe. Suspect small pleural effusions.
--- NOTE | 2016-08-17 14:52 | PN ---
DATE: 08/17/2016 A 80-year-old male resting in bed comfortably on 3R. The patient is a [facility] resident with pne umonia ____ receiving IV antibiotics. PHYSICAL EXAMINATION: VITAL SIGNS: His temp is 98, his blood pressure is 138/89, his pulse is 80 and irregular. LUNGS: Show bilateral rhonchi. HEART: Irregular S1, S2 rhythm. ABDOMEN: Soft, positive bowel sounds. Feeding tube in place. EXTREMITIES: No evidence of edema. NEUROLOGIC: He is alert. LABORATORY DATA: Shows a WBC of 5.1, hemoglobin 9.7, hematocrit 30.2, platelet count is 231. His ch emistry shows a sodium 144, potassium 3.3, chloride 104. BUN is 33, the creatinine is 0.7. His BNP is 16,000. His procalcitonin is less than 0.05. ASSESSMENT AND PLAN: The patient has a urine culture which is growing gram-negative rods. Blood cul tures are negative at 24 hours. He is currently receiving IV meropenem, being followed by infectious disease. He is receiving PEG feedings. He has a history of dysphagia with risk of aspiration pneum onia. He is on Doryx q.12 100 mg and meropenem q.12. He is receiving albuterol treatments and Pepci d via his G-tube at 20 mg, ____ 2.5 mg b.i.d. through the tube, metoprolol 25 mg b.i.d. through the t ube, Colace liquids 100 mg daily through the tube, Ecotrin 325 mg daily and acetylcysteine. We will continue current level of care. I have requested a followup chest x-ray on the patient. We will con tinue current antibiotics and continue supportive care. Cornelia Long MD cc: [id number] TT: 08/17/2016 14:51:53 Confirmation # [id number] Dictation # [id number]
--- NOTE | 2016-08-17 15:50 | CP.PCM.PN ---
Subjective - Date & Time of Evaluation Date of Evaluation: 08/17/16 Time of Evaluation: 09:15 - Subjective Subjective: Comfortable in bed, no fevers overnight, not in distress. Objective - Vital Signs/Intake and Output Vital Signs (last 24 hours): Temp Pulse Resp BP Pulse Ox 97.3 F L 80 17 138/89 95 08/17/16 06:00 08/17/16 12:00 08/17/16 06:00 08/17/16 12:00 08/17/16 06:00 Intake and Output: 08/17/16 08/17/16 06:59 18:59 Intake Total 0 0 Output Total 1999 200 Balance -2000 -200 - Medications Medications: Current Medications Acetylcysteine (Acetylcysteine 20%) 4 ml IH BIDRESP [facility] Last Admin: 08/17/16 07:47 Dose: 4 ml Albuterol/Ipratropium (Duoneb 3 Mg/0.5 Mg (3 Ml) Ud) 3 ml IH [id number] [facility] Last Admin: 08/17/16 13:31 Dose: Not Given Aspirin (Aspirin) 325 mg GT DAILY [facility] Last Admin: 08/17/16 10:23 Dose: 325 mg Docusate Sodium (Colace Liquid) 100 mg GT DAILY [facility] Last Admin: 08/17/16 10:28 Dose: 100 mg Famotidine (Pepcid) 20 mg GT DAILY [facility] Last Admin: 08/17/16 10:24 Dose: 20 mg Meropenem 1g/NS 100mL IVPB (Meropenem 1g/Ns 100ml Ivpb) 100 mls @ 100 mls/hr IVPB Q12 [facility] PRN Reason: Protocol Stop: 08/29/16 22:01 Last Admin: 08/17/16 12:29 Dose: 100 mls/hr Doxycycline Hyclate 100 mg/ (Sodium Chloride) 100 mls @ 100 mls/hr IVPB Q12 [facility] PRN Reason: Protocol Stop: 08/23/16 22:01 Last Admin: 08/17/16 10:27 Dose: 100 mls/hr Lisinopril (Zestril) 2.5 mg GT BID [facility] Last Admin: 08/17/16 10:24 Dose: 2.5 mg Metoprolol Tartrate (Lopressor) 25 mg GT BID [facility] Last Admin: 08/17/16 10:24 Dose: Not Given - Labs Labs: 08/17/16 07:00 08/17/16 07:00 PT 13.6 Seconds (9.9-11.8) H 08/15/16 17:20 INR 1.26 (0.93-1.08) H 08/15/16 17:20 APTT 31.1 Seconds (23.7-30.8) H 08/15/16 17:20 - Constitutional Appears: Non-toxic, No Acute Distress - Head Exam Head Exam: NORMAL INSPECTION - Neck Exam Neck Exam: absent: Lymphadenopathy, Meningismus - Respiratory Exam Respiratory Exam: Decreased Breath Sounds - Cardiovascular Exam Cardiovascular Exam: +S1, +S2 - GI/Abdominal Exam GI & Abdominal Exam: Soft. absent: Tenderness Assessment and Plan - Assessment and Plan (Free Text) Plan: Assessment Consider aspiration pneumonia, healthcare-associated, slowly improving, more awake today history of left lower lobe healthcare-associated pneumonia atrial fibrillation HTN peripheral vascular disease history of cerebrovascular accident with left sided carotid artery disease benign prostatic hyperplasia dementia Plan continue Merrem and Doxycycline (day 2) pending final blood cx, sputum cx; follow up identification of the gram negative bacilli in the urine Reviewed Dr. Denis's evaluation Discussed with Dr. Long Will follow clinically
--- NOTE | 2016-08-17 16:17 | IP.NPCORE ---
Pneumonia Progress Notes - Oxygenation Assessment (REQUIRED) O2 Saturation: 95 Oxygen Delivery Method: Nasal Cannula Date: 08/17/16 - Blood Cultures (REQUIRED) Culture drawn: Yes - Initial Antibiotic Initial Antibiotic given within Four Hours:: Yes Date:: 08/15/16 - Appropriate Antibiotic Appropriate Antibiotic within 24 hours of Admission:: Yes Current Antibiotic: Doxycycline, Merrem IV No change in antibiotics: Yes (changed to Doxy and merrem) - Pneumonia Vaccine Pneumonia Vaccine: (unknown) - Smoking Cessation Smoking Cessation counseling provided:: No Ex-Smoker (has not smoked in the last 12 months): No Current Smoker - smoking cessation education provided: No
--- NOTE | 2016-08-17 21:05 | CARD ---
APPROVED REPORT EXAM: Two-dimensional and M-mode echocardiogram with Doppler and color Doppler. INDICATION Congestive Heart Failure 2D DIMENSIONS Left Atrium (2D)5.7 (1.6-4.0cm)IVSd1.2 (0.7-1.1cm) LVDd4.2 (3.9-5.9cm)PWd1.5 (0.7-1.1cm) LVDs3.6 (2.5-4.0cm)FS (%) 14.0 % LVEF (%)30.2 (>50%) M-Mode DIMENSIONS Aortic Root3.40 (2.2-3.7cm)Aortic Cusp Exc.1.80 (1.5-2.0cm) Aortic Valve AoV Peak [id number]/Bridgette Peak GR.6mmHg Mitral Valve E/A ratio0.0 TDI E/Lateral E'0.0E/Medial E'0.0 Tricuspid Valve TR Peak [id number] [id number] Peak Gr.73mmHg [id number] LEFT VENTRICLE The left ventricle is normal size. There is mild concentric left ventricular hypertrophy. The systolic function is moderately impaired.EF-30-35% There is a flattened septum consistent with right ventricle volume and pressure overload. Transmitral Doppler flow pattern is Grade II-pseudonormal filling dynamics. No left ventricle thrombus noted on this study. There is no ventricular septal defect visualized. There is no left ventricular aneurysm. There is no mass noted in the left ventricle. RIGHT VENTRICLE The right ventricle is mildly to moderately dilated. The right ventricle is mildly hypertrophied. Systolic function is mildly to moderately reduced. ATRIA The left atrium is moderately dilated. The right atrium is mildly dilated. The interatrial septum is intact with no evidence for an atrial septal defect. AORTIC VALVE The aortic valve is thickened but opens well. The aortic valve is moderately sclerotic. There is mild aortic regurgitation. There is no aortic valvular stenosis. There is no aortic valvular vegetation. MITRAL VALVE The mitral valve is thickened but opens well. Mitral annular calcification is mild. Mitral regurgitation is moderate to severe. There is no mitral valve stenosis. There is no evidence of mitral valve prolapse. TRICUSPID VALVE The tricuspid valve leaflets are thickened , but open well. There is severe tricuspid regurgitation.RVSP-83 mmof Hg. There is severe pulmonary hypertension. There is no tricuspid valve stenosis. There is no tricuspid valve prolapse or vegetation. PULMONIC VALVE The pulmonic valve is mildly thickened. There is trace to mild pulmonic valvular regurgitation. There is no pulmonic valvular stenosis. GREAT VESSELS The aortic root is normal in size. The ascending aorta is normal in size. The pulmonary artery is normal. The IVC is dilated. PERICARDIAL EFFUSION There is large left pleural effusion. There is a small pericardial effusion. <Conclusion> The left ventricle is normal size. There is mild concentric left ventricular hypertrophy. The systolic function is moderately impaired.EF-30-35% There is a flattened septum consistent with right ventricle volume and pressure overload. There is mild aortic regurgitation. Mitral regurgitation is moderate to severe. There is severe tricuspid regurgitation.RVSP-83 mmof Hg. There is severe pulmonary hypertension. The IVC is dilated. There is large left pleural effusion. There is a small pericardial effusion. no thrombus or vegetation noted.
[2016-08-18] MEDS: Albuterol-Ipratrop 3 mg / 0.5 (3 ml) UD IH SCH ×4 (02:50→19:56)
[2016-08-18 07:48] LABS: HEMATOCRIT 28.7 % (42.0-52.0); MEAN CORPUSCULAR HEMOGLOBIN 31.7 pg (25.0-35.0); MEAN CORPUSCULAR HGB CONC 32.1 g/dl (31.0-37.0); MEAN PLATELET VOLUME 9.7 fl (7.0-11.0); RED CELL DISTRIBUTION WIDTH 15.4 % (11.5-14.5); WHITE BLOOD COUNT 4.5 10^3/ul (4.5-11.0)
[2016-08-18] MEDS: Acetylcysteine 20% Inhal Soln (4ml) IH SCH ×2 (08:03→19:56)
--- NOTE | 2016-08-18 08:09 | PN ---
DATE: 08/18/2016 SUBJECTIVE: The patient appears comfortable at rest. He is not short of breath. He is awake and alert. PHYSICAL EXAMINATION: VITAL SIGNS: Temperature is 97.2, pulse 92, respirations 18/20, blood pressure 162/104. Oxygen saturation on nasal cannula is 95%. HEENT: Normocephalic, atraumatic. No JVD. CARDIOVASCULAR: Positive S1, S2. No S3. LUNGS: Crackles at both bases. Minimal/less rhonchi. No wheezing. EXTREMITIES: No clubbing, cyanosis, or edema. Calves are nontender to palpation. GASTROINTESTINAL: Abdomen is soft, nontender, nondistended. Bowel sounds are positive. SKIN: No acute rash. NEUROLOGIC: Limited at the present time. PERTINENT LABORATORY DATA: Chest x-ray was repeated yesterday and reviewed. Bilateral pulmonary infiltrates remain. There does appear to be some clearing of the infiltrates in the left lung. IMPRESSION: 1. Recurrent aspiration pneumonia. 2. Mild bronchospasm. 3. Chronic dysphagia. 4. History of multiple strokes. 5. Coronary artery disease. 6. Rule out congestive heart failure. 7. Rule out urinary tract infection. PLAN: The patient appears much more comfortable this morning. He is not short of breath at rest. He is awake and alert. Oxygen saturation on nasal cannula is 95%. I did review the last x-ray as above. The x-ray remains with bilateral pulmonary infiltrates. However, the infiltrates are somewhat improved /decreased in the left lung. I have also ordered a repeat chest x-ray -- for this morning -- for comparison. On physical exam, there is less bronchospasm noted. In addition, there is no significant alveolar-arterial gradient. I will continue with the current nebulizer treatments and aspiration precautions for now. Input by cardiology (Dr. Hartman) is also noted. I would continue with the antibiotic coverage as per infectious disease. Temperatures have resolved. There is no leukocytosis. The clinical status of the patient is improved -- compared to the initial presentation. However, again, the overall status/ prognosis of this patient remains guarded. I will discuss the above with Dr. Long. Audi Denis MD cc: [id number] TT: 08/18/2016 08:08:21 Confirmation # [id number] Dictation # [id number] DIDI
[2016-08-18 08:15] LABS: BLOOD UREA NITROGEN 34 mg/dL (7-21); CALCIUM 8.3 mg/dL (8.4-10.5); CARBON DIOXIDE 30 mmol/L (21-33); CHLORIDE 106 mmol/L (95-110); GFR AFRICAN-AMERICAN > 60; GLUCOSE,RANDOM 98 mg/dL (70-110); POTASSIUM 3.3 mmol/L (3.6-5.0); SODIUM 143 mmol/L (132-148)
[2016-08-18] MEDS ORDERED: Potassium Chloride 20 mEq/15 ml LIQ UD PO SCH (10:15)
--- NOTE | 2016-08-18 10:23 | RAD ---
HISTORY: FOLLOW UP COMPARISON: 08/17/2016 TECHNIQUE: Chest PA and lateral FINDINGS: LUNGS: Bilateral perihilar in right upper lobe patchy airspace opacities consistent with infiltrates (and/or patchy areas of pulmonary edema) are similar appearing. Shallow lung volumes noted PLEURA: . Minimal right pleural effusion probable. No pneumothorax apparent. CARDIOVASCULAR: Cardiomegaly - no interval change OSSEOUS STRUCTURES: No significant abnormalities. VISUALIZED UPPER ABDOMEN: Normal. OTHER FINDINGS: None. IMPRESSION: The bilateral airspace opacities in each perihilar location in the right upper lobe are similar in appearance bilateral infiltrates and/or bilateral patchy areas of pulmonary edema are some considerations. These are not significantly changed in appearance Olwhieecnezt-aobdlii-[id number]. Minimal right pleural effusion. Constellation of findings overlap with a CHF status. Concomitant infiltrates also possible. Correlate clinically
[2016-08-18] MEDS: Meropenem 1g/NS 100mL IVPB 100 ML IVPB SCH ×2 (10:24→22:30)
--- NOTE | 2016-08-18 10:26 | PN ---
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 The patient is more alert this morning, somewhat more communicative as well. Nursing staff on e floor stated that there were no problems during the night. PHYSICAL EXAMINATION: VITAL SIGNS: His temp is 98.2, his pulse is 91, his blood pressure was 162/107. His oxygen saturati on was reported at 85% on room air but the patient is on 3 liters of nasal cannula, and I have reques eitan a repeat which has been reported in the 91 percentile. LUNGS: Show bilateral rhonchi. No wheezing is audible at this time. HEART: Has an irregular S1, S2 rhythm. ABDOMEN: Soft, scaphoid, positive bowel sounds. A feeding tube is in place. EXTREMITIES: Show no evidence of edema. There is bilateral footdrop. LABORATORY DATA: Shows a sodium 143, potassium 3.3, chloride 106. The BUN is 34, the creatinine is 0.6. CBC shows a WBC of 4.5, RBC 2.9, hemoglobin 9.2, hematocrit 28.7, platelet count is 229,000. M icrobiological studies to date: Blood cultures are negative at 48 hours. There is a gram-negative r od in the urine which is pending. Chest x-ray is showing consistent with bilateral pulmonary infiltr ates. ASSESSMENT AND PLAN: The patient continues on respiratory treatments with oxygen support, and chest PT has been requested. He has bilateral severe pneumonia. He has aspiration precautions. He is at high risk for aspiration and that is why the feeding PEG was placed. He will benefit from intense pu lmonary care and nursing service. His low potassium will be repleted and a renal consult will be req uested. The nursing staff relates that the patient has not had any diarrhea but has been having some soft stools. Will increase his Zestril to 5 mg b.i.d. and monitor his blood pressure. Cornelia Long MD cc: [id number] TT: 08/18/2016 10:25:54 Confirmation # [id number] Dictation # [id number] mn
--- NOTE | 2016-08-18 13:41 | CP.PCM.PN ---
Subjective - Date & Time of Evaluation Date of Evaluation: 08/18/16 Time of Evaluation: 09:25 - Subjective Subjective: Comfortable, no fevers overnight, not in distress. Objective - Vital Signs/Intake and Output Vital Signs (last 24 hours): Temp Pulse Resp BP Pulse Ox 98.2 F 91 H 17 162/107 H 85 L 08/18/16 06:00 08/18/16 08:10 08/18/16 06:00 08/18/16 08:10 08/18/16 06:00 Intake and Output: 08/18/16 08/18/16 06:59 18:59 Intake Total 200 Output Total 300 Balance -100 - Medications Medications: Current Medications Acetylcysteine (Acetylcysteine 20%) 4 ml IH BIDRESP [facility] Last Admin: 08/18/16 08:03 Dose: 4 ml Albuterol/Ipratropium (Duoneb 3 Mg/0.5 Mg (3 Ml) Ud) 3 ml IH [id number] [facility] Last Admin: 08/18/16 08:03 Dose: 3 ml Aspirin (Aspirin) 325 mg GT DAILY [facility] Last Admin: 08/17/16 10:23 Dose: 325 mg Docusate Sodium (Colace Liquid) 100 mg GT DAILY [facility] Last Admin: 08/17/16 10:28 Dose: 100 mg Famotidine (Pepcid) 20 mg GT DAILY [facility] Last Admin: 08/17/16 10:24 Dose: 20 mg Meropenem 1g/NS 100mL IVPB (Meropenem 1g/Ns 100ml Ivpb) 100 mls @ 100 mls/hr IVPB Q12 [facility] PRN Reason: Protocol Stop: 08/29/16 22:01 Last Admin: 08/17/16 21:22 Dose: 100 mls/hr Doxycycline Hyclate 100 mg/ (Sodium Chloride) 100 mls @ 100 mls/hr IVPB Q12 [facility] PRN Reason: Protocol Stop: 08/23/16 22:01 Last Admin: 08/17/16 22:29 Dose: 100 mls/hr Lisinopril (Zestril) 2.5 mg GT BID [facility] Last Admin: 08/18/16 08:10 Dose: 2.5 mg Metoprolol Tartrate (Lopressor) 25 mg GT BID [facility] Last Admin: 08/18/16 08:09 Dose: 25 mg - Labs Labs: 08/18/16 07:00 08/18/16 07:00 PT 13.6 Seconds (9.9-11.8) H 08/15/16 17:20 INR 1.26 (0.93-1.08) H 08/15/16 17:20 APTT 31.1 Seconds (23.7-30.8) H 08/15/16 17:20 - Constitutional Appears: Non-toxic, No Acute Distress - Head Exam Head Exam: NORMAL INSPECTION - Neck Exam Neck Exam: absent: Lymphadenopathy, Meningismus - Respiratory Exam Respiratory Exam: Decreased Breath Sounds - Cardiovascular Exam Cardiovascular Exam: +S1, +S2 - GI/Abdominal Exam GI & Abdominal Exam: Soft. absent: Tenderness Assessment and Plan - Assessment and Plan (Free Text) Plan: Assessment Consider aspiration pneumonia, healthcare-associated, slowly improving; patient also with Klebsiella in the urine, consider UTI history of left lower lobe healthcare-associated pneumonia atrial fibrillation HTN peripheral vascular disease history of cerebrovascular accident with left sided carotid artery disease benign prostatic hyperplasia dementia Plan continue Merrem and Doxycycline (day 3) pending final blood cx, sputum cx; follow up identification of the gram negative bacilli in the urine; target 4-7 days of Doxy and Merrem, then we can switch to PO antibiotics to cover the Klebsiella UTI; will check PSA levels Reviewed Dr. Denis's evaluation Discussed with Dr. Long Will follow clinically
[2016-08-18 13:52] LABS: BLOOD UREA NITROGEN 37 mg/dL (7-21); CALCIUM 8.3 mg/dL (8.4-10.5); CARBON DIOXIDE 28 mmol/L (21-33); CHLORIDE 105 mmol/L (98-107); GFR AFRICAN-AMERICAN > 60; GLUCOSE,RANDOM 135 mg/dL (70-110); POTASSIUM 3.8 mmol/L (3.6-5.0); SODIUM 143 mmol/L (132-148)
[2016-08-18] MEDS ORDERED: Potassium Chloride 40 mEq/30 ml LIQ UD GT SCH (18:00)
--- NOTE | 2016-08-18 19:25 | CON ---
DATE: 08/18/2016 REASON FOR CONSULTATION: Hypokalemia. HISTORY OF PRESENTING ILLNESS: A 81-year-old male snf resident transferred in on 08/16 mike use of shortness of breath, low blood oxygen. Decreased sensorium. The patient was found to have el evated blood pressure at the time of presentation. He was afebrile. He was found to be anemic with a hemoglobin of 9.2, with MCV of 100, and hyponatremic with a potassium of 3.4. The patient was not on any diuretics in the sn[facility]. Since admission, he has been receiving potassium supplementati on. Consultation is requested for persistent hypokalemia. PAST MEDICAL/SURGICAL HISTORY: Dementia, aspiration pneumonia, hypertension, GERD. FAMILY HISTORY: Noncontributory. SOCIAL HISTORY: No smoking, no alcohol use, no IV drug abuse. ALLERGIES: No known drug allergies. MEDICATIONS IN THE RETIREMENT INCLUDED: Lisinopril, DuoNeb, Colace, Protonix. CURRENT MEDICATIONS: Mucomyst, aspirin, Colace, doxycycline 100 q. 12, Lopressor 25 b.i.d., meropene m, Pepcid, potassium 20 mEq b.i.d. via PEG, lisinopril 5 b.i.d. REVIEW OF SYSTEMS: Unavailable, as the patient is unable to cooperate. PHYSICAL EXAMINATION: GENERAL: Elderly male lying in bed. Eyes are open, does not respond. VITAL SIGNS: Blood pressure 150/94, heart rate 108, respiratory rate 18, temperature 97.5. HENT: Normocephalic, atraumatic. NECK: Supple, no JVD. LUNGS: Bilaterally equal air entry, scattered rhonchi, no rales. CARDIAC: S1, S2, regular rate and rhythm, no murmur, no rub. ABDOMEN: Obese, distended, soft, nontender, bowel sounds present. EXTREMITIES: Trace lower extremity edema. INTAKE AND OUTPUT: 200/300. LABORATORY DATA: WBC 4.5, hemoglobin 9.0, hematocrit 28.7, platelets 229. Sodium 143, potassium 3.8 , chloride 105, CO2 of 28, BUN 37, creatinine 0.6, glucose 135, calcium 8.3, magnesium 2.3. BNP 16, 000. Urinalysis: Yellow, clear, specific gravity 6.5, pH 1020, protein 100, blood moderate, nitrite s positive, leukocyte esterase is large. Urine Culture: Klebsiella. Blood Cultures: No growth. ECHOCARDIOGRAM: Normal left ventricular size, mild concentric left ventricular hypertrophy, EF 30-35 %, mild AR, mitral regurg. ASSESSMENT AND PLAN: 1. Hypokalemia with alkalemia. The patient has been receiving potassium supplementation. The patien t has not been on any diuretic. This may be concern for primary hyperaldosteronism, especially becau se the patient had elevated blood pressures too. 2. Decompensated congestive heart failure? 3. Klebsiella urinary tract infection. 4. History of hypertension. 5. Dementia. PLAN: 1. Check plasma aldosterone level, plasma renin. 2. Start Aldactone 25 mg b.i.d. 3. Increase potassium supplementation. 4. Limit use of Lasix. 5. Monitor electrolytes closely. 6. Repeat urinalysis. Thank you for the courtesy of this consultation. Will follow this patient closely with you. Catia Ochoa MD cc: [id number] TT: 08/18/2016 19:24:56 Confirmation # [id number] Dictation # [id number] stacey
[2016-08-19] MEDS: Albuterol-Ipratrop 3 mg / 0.5 (3 ml) UD IH SCH ×4 (03:05→19:42)
[2016-08-19 07:23] LABS: BLOOD UREA NITROGEN 39 mg/dL (7-21); CALCIUM 8.4 mg/dL (8.4-10.5); CARBON DIOXIDE 32 mmol/L (21-33); CHLORIDE 105 mmol/L (95-110); GFR AFRICAN-AMERICAN > 60; GLUCOSE,RANDOM 108 mg/dL (70-110); POTASSIUM 3.9 mmol/L (3.6-5.0); SODIUM 142 mmol/L (132-148)
[2016-08-19] MEDS: Acetylcysteine 20% Inhal Soln (4ml) IH SCH ×2 (08:24→19:41)
--- NOTE | 2016-08-19 08:25 | PN ---
DATE: 08/19/2016 SUBJECTIVE: The patient appears comfortable this morning. He is not short of breath at rest. PHYSICAL EXAMINATION: VITAL SIGNS: Temperature is 97.5, pulse is approximately 88, respiratory rate 18, blood pressure 150/94. Oxygen saturation on nasal cannula is 97%. HEENT: Normocephalic, atraumatic. No JVD. CARDIOVASCULAR: Positive S1, S2. No S3. LUNGS: Less crackles at the bases. Less rhonchi. No wheezing. EXTREMITIES: No clubbing, cyanosis, or edema. Calves are nontender to palpation. GASTROINTESTINAL: Abdomen is soft, nontender, nondistended. Bowel sounds are positive. SKIN: No acute rash. NEUROLOGIC: Limited at the present time. IMPRESSION: 1. Recurrent aspiration pneumonia. 2. Mild bronchospasm. 3. Chronic dysphagia. 4. History of multiple strokes. 5. Coronary artery disease. 6. Rule out congestive heart failure. 7. Rule out urinary tract infection. PLAN: The patient appears more comfortable this morning. He is not short of breath at rest. He is awake and alert. Oxygen saturation on nasal cannula is now 97%. I did review the last x-ray done. The x-ray is somewhat improved with decreased pulmonary infiltrates. The infiltrates also appear much less dense -- compared to the original films. I would continue with the antibiotic coverage as per infectious disease. Input by Dr. Castillo is noted. I will continue with the current nebulizer treatments and aspiration precautions for now. Clinical status of the patient is certainly improved -- compared to the initial presentation. However, again, the overall status/prognosis of this patient remains very guarded. I will discuss the above with Dr. Long. Audi Denis MD cc: [id number] TT: 08/19/2016 08:24:28 Confirmation # [id number] Dictation # [id number] en MTDD
[2016-08-19] MEDS: Potassium Chloride 20 mEq/15 ml LIQ UD GT SCH (09:12)
[2016-08-19] MEDS: Meropenem 1g/NS 100mL IVPB 100 ML IVPB SCH ×2 (09:12→21:40)
[2016-08-19 09:15] LABS: URINE BILIRUBIN NEGATIVE (NEGATIVE); URINE BLOOD LARGE (NEGATIVE); URINE GLUCOSE (UA) NEGATIVE (NEGATIVE); URINE KETONE NEGATIVE (NEGATIVE); URINE LEUKOCYTE ESTERASE LARGE Leu/uL (NEGATIVE); URINE PROTEIN 100 mg/dL (<30 mg/dL); URINE UROBILINOGEN >=8.0 E.U./dL (<1 E.U./dL)
[2016-08-19 09:18] LABS: URINE APPEARANCE CLOUDY (CLEAR); URINE COLOR LIGHT YELLOW (YELLOW)
[2016-08-19 09:30] LABS: URINE BACTERIA MANY (NEG); URINE EPITHELIAL CELLS 0 - 2 /hpf (0-5); URINE RBC TNTC /hpf (0-2); URINE WBC TNTC /hpf (0-6)
--- NOTE | 2016-08-19 11:36 | PN ---
DATE: 08/19/2016 CARDIOLOGY FOLLOWUP The patient's breathing is stable without respiratory distress. PHYSICAL EXAMINATION: VITAL SIGNS: Blood pressure is 148/91. The heart rate is 100. NECK: Negative JVD. LUNGS: Decreased breath sounds. HEART: Reveals S1, S2. EXTREMITIES: Without edema. LABORATORY DATA: Hemoglobin is 9.2. ProBNP was 16,000. Potassium is 3.9. IMPRESSION: 1. Failure to thrive. 2. Congestive heart failure. 3. Old inferior wall myocardial infarction. 4. Old cerebrovascular accident. 5. Ischemic dilated cardiomyopathy. Given these findings, I agree with adding diuretics to the patient's regimen. The patient is in no a cute distress today. Justen Hartman MD cc: [id number] TT: 08/19/2016 11:35:45 Confirmation # [id number] Dictation # [id number] stacey
--- NOTE | 2016-08-19 14:40 | PN ---
DATE: 08/19/2016 SUBJECTIVE: The patient is seen lying in bed. Eyes are open. He does not follow commands. PHYSICAL EXAMINATION: GENERAL: Elderly male lying in bed. VITAL SIGNS: Blood pressure 148/91, heart rate 102, respiratory rate 21, temperature 98. HEENT: Normocephalic, atraumatic. NECK: Supple, no JVD. LUNGS: Bilateral equal air entry, equal expansion. CARDIAC: S1, S2, regular rate and rhythm, no murmur, no rub. ABDOMEN: Obese, distended, soft, nontender, bowel sounds present. EXTREMITIES: Trace lower extremity edema. INTAKE AND OUTPUT: Not charted. LABORATORY DATA: WBC 4.5. Sodium 142, potassium 3.9, chloride 105, CO2 32, BUN 39, creatinine 0.6, glucose 108, calcium 8.4. CURRENT MEDICATIONS: Aldactone 25 b.i.d., aspirin 325, Colace, doxycycline 100 q. 12, DuoNeb, Lasix 40 IV daily, Lopressor 25, meropenem 100, Pepcid, potassium 40 b.i.d., lisinopril 5. ASSESSMENT AND PLAN: 1. Klebsiella urinary tract infection. 2. History of aspiration pneumonia. 3. ? Congestive heart failure. 4. Persistent hypokalemia, now improving. 5. Alkalosis. 6. Dementia. 7. History of cerebrovascular accident. PLAN: 1. Change potassium to 40 20 mEq daily. 2. Continue Aldactone 25 b.i.d. 3. Discontinue Lasix soon. 4. Follow up plasma renin and plasma aldosterone levels. 5. Continue antibiotics as per infectious disease recommendations. Catia Ochoa MD cc: [phone] TT: 08/19/2016 14:39:52 Confirmation # [id number] Dictation # [id number] an
--- NOTE | 2016-08-19 15:06 | PN ---
DATE: 08/19/2016 A 81-year-old male receiving treatment for bilateral pneumonia with respiratory insufficiency and uri nary tract infection. He has a history of dysphagia, history of altered mental status, history of pa cemaker, atrial fibrillation, cognitive behavior disorder with dementia, multiple stroke history, per ipheral vascular disease, carotid disease, bilateral footdrop with degenerative disk disease of the l umbar spine, hypokalemia. PHYSICAL EXAMINATION: GENERAL: The patient is resting in bed this morning. VITAL SIGNS: His temperature is 98, his pulse is 100, his blood pressure is 148/80, his respiratory rate is 21. He has 96% saturation on 3 liters of nasal oxygen. NECK: Supple. LUNGS: Show bilateral rhonchi. Diminished breath sounds at the bases. HEART: Irregular S1, S2 rhythm. ABDOMEN: Soft, scaphoid, positive bowel sounds. There is a feeding PEG in place. EXTREMITIES: Show no evidence of edema. LABORATORY DATA: Shows a chemistry with sodium 142, potassium 3.9, chloride 105, BUN is 39, creatini ne is 0.6. His PSA is less than 0.1. ASSESSMENT AND PLAN: The patient is currently receiving meropenem and Doryx by infectious disease. He is receiving pulmonary toilet and respiratory treatments. He will continue on current level of ca re. I have discussed his clinical status with the individual consultants and will follow up the [place] ent's labs. He has a living will. He is a DNR/DNI. Cornelia Long MD cc: [id number] TT: 08/19/2016 15:06:39 Confirmation # [id number] Dictation # [id number] mn
--- NOTE | 2016-08-19 16:34 | CP.PCM.PN ---
Subjective - Date & Time of Evaluation Date of Evaluation: 08/19/16 Time of Evaluation: 09:45 - Subjective Subjective: Comfortable, more awake, not in distress, afebrile overnight. Objective - Vital Signs/Intake and Output Vital Signs (last 24 hours): Temp Pulse Resp BP Pulse Ox 98 F 102 H 21 148/91 H 96 08/19/16 08:41 08/19/16 08:41 08/19/16 08:41 08/19/16 08:41 08/19/16 08:41 Intake and Output: 08/19/16 08/19/16 06:59 18:59 Intake Total 0 Output Total 600 Balance -600 - Medications Medications: Current Medications Acetylcysteine (Acetylcysteine 20%) 4 ml IH BIDRESP [facility] Last Admin: 08/19/16 08:24 Dose: 4 ml Albuterol/Ipratropium (Duoneb 3 Mg/0.5 Mg (3 Ml) Ud) 3 ml IH [id number] [facility] Last Admin: 08/19/16 08:24 Dose: 3 ml Aspirin (Aspirin) 325 mg GT DAILY [facility] Last Admin: 08/19/16 09:11 Dose: 325 mg Docusate Sodium (Colace Liquid) 100 mg GT DAILY [facility] Last Admin: 08/19/16 09:11 Dose: 100 mg Famotidine (Pepcid) 20 mg GT DAILY [facility] Last Admin: 08/19/16 09:12 Dose: 20 mg Meropenem 1g/NS 100mL IVPB (Meropenem 1g/Ns 100ml Ivpb) 100 mls @ 100 mls/hr IVPB Q12 [facility] PRN Reason: Protocol Stop: 08/29/16 22:01 Last Admin: 08/19/16 09:12 Dose: 100 mls/hr Doxycycline Hyclate 100 mg/ (Sodium Chloride) 100 mls @ 100 mls/hr IVPB Q12 [facility] PRN Reason: Protocol Stop: 08/23/16 22:01 Last Admin: 08/19/16 09:12 Dose: 100 mls/hr Lisinopril (Zestril) 5 mg PO BID [facility] Last Admin: 08/19/16 09:13 Dose: 5 mg Metoprolol Tartrate (Lopressor) 25 mg GT BID [facility] Last Admin: 08/19/16 09:12 Dose: 25 mg Potassium Chloride (Potassium Chloride Oral Soln) 20 meq GT DAILY [facility] Last Admin: 08/19/16 09:12 Dose: 20 meq Spironolactone (Aldactone) 25 mg PO BID [facility] Last Admin: 08/19/16 09:11 Dose: 25 mg - Labs Labs: 08/18/16 07:00 08/19/16 06:30 PT 13.6 Seconds (9.9-11.8) H 08/15/16 17:20 INR 1.26 (0.93-1.08) H 08/15/16 17:20 APTT 31.1 Seconds (23.7-30.8) H 08/15/16 17:20 - Constitutional Appears: Non-toxic, No Acute Distress - Head Exam Head Exam: NORMAL INSPECTION - Neck Exam Neck Exam: absent: Lymphadenopathy, Meningismus - Respiratory Exam Respiratory Exam: Decreased Breath Sounds - Cardiovascular Exam Cardiovascular Exam: +S1, +S2 - GI/Abdominal Exam GI & Abdominal Exam: Soft. absent: Tenderness Assessment and Plan - Assessment and Plan (Free Text) Plan: Assessment Consider aspiration pneumonia, healthcare-associated, slowly improving; patient also with Klebsiella in the urine, consider UTI history of left lower lobe healthcare-associated pneumonia atrial fibrillation HTN peripheral vascular disease history of cerebrovascular accident with left sided carotid artery disease benign prostatic hyperplasia dementia Plan continue Merrem and Doxycycline (day 4) pending final blood cx, sputum cx; follow up identification of the gram negative bacilli in the urine; target 4-7 days of Doxy and Merrem, then we can switch to PO antibiotics to cover the Klebsiella UTI (ie. can switch to PO Augmentin and PO Doxycycline); PSA level is low Reviewed Dr. Denis's evaluation Discussed with Dr. Long Will continue to follow clinically
[2016-08-20] MEDS: Albuterol-Ipratrop 3 mg / 0.5 (3 ml) UD IH SCH ×4 (01:13→20:40)
[2016-08-20 07:28] LABS: ALB/GLOB RATIO 0.9 (1.1-1.8); ALKALINE PHOSPHATASE 59 U/L (38-133); ALT/SGPT 16 U/L (7-56); AST/SGOT 22 U/L (15-59); BILIRUBIN,TOTAL 0.6 mg/dL (0.2-1.3); BLOOD UREA NITROGEN 42 mg/dL (7-21); CALCIUM 8.5 mg/dL (8.4-10.5); CARBON DIOXIDE 33 mmol/L (21-33); CHLORIDE 106 mmol/L (98-107); GFR AFRICAN-AMERICAN > 60; GLUCOSE,RANDOM 102 mg/dL (70-110); POTASSIUM 4.2 mmol/L (3.6-5.0); SODIUM 145 mmol/L (132-148); TOTAL PROTEIN 5.8 g/dL (5.8-8.3)
[2016-08-20] MEDS: Acetylcysteine 20% Inhal Soln (4ml) IH SCH ×2 (08:06→20:39)
[2016-08-20 08:07] LABS: MEAN CORPUSCULAR HEMOGLOBIN 31.7 pg (25.0-35.0); MEAN PLATELET VOLUME 9.4 fl (7.0-11.0); RED CELL DISTRIBUTION WIDTH 15.4 % (11.5-14.5); WHITE BLOOD COUNT 5.2 10^3/ul (4.5-11.0)
--- NOTE | 2016-08-20 08:29 | PN ---
DATE: 08/20/2016 SUBJECTIVE: The patient appears comfortable at rest. He is not short of breath. PHYSICAL EXAMINATION: VITAL SIGNS: Temperature is 97.6, pulse 96, respirations 18/20, blood pressure 154/100. Oxygen saturation on nasal cannula is 98%. HEENT: Normocephalic, atraumatic. No JVD. CARDIOVASCULAR: Positive S1, S2. No S3. LUNGS: Minimal crackles at the bases. Minimal rhonchi. No wheezing. EXTREMITIES: No clubbing, cyanosis, or edema. Calves are nontender to palpation. GASTROINTESTINAL: Abdomen is soft, nontender, nondistended. Bowel sounds are positive. SKIN: No acute rash. NEUROLOGIC: Limited at the present time. IMPRESSION: 1. Recurrent aspiration pneumonia. 2. Mild bronchospasm. 3. Chronic dysphagia. 4. History of multiple strokes. 5. Coronary artery disease. 6. Rule out congestive heart failure. 7. Rule out urinary tract infection. PLAN: The patient appears comfortable this morning. He is not short of breath at rest. He is awake and alert. On physical exam, there is less bronchospasm noted. In addition, the alveolar arterial gradient is also less. Oxygen saturation on nasal cannula is now 98%. I will continue with the current nebulizer treatment and aspiration precautions for now. I would continue with the antibiotic coverage as per infectious disease. Temperatures have resolved. There is no leukocytosis. Renal evaluation is also ongoing. Clinical status of the patient is improved - compared to the initial presentation. However, again, the overall status/prognosis of this patient remains guarded. I will discuss the above with Dr. Long this morning. Audi Denis MD cc: [phone] TT: 08/20/2016 08:29:21 Confirmation # [id number] Dictation # [id number] dhaval TOLBERT
--- NOTE | 2016-08-20 09:20 | RAD ---
HISTORY: F/U COMPARISON: 08/18/2016 FINDINGS: LUNGS: Perihilar and right apical infiltrates are unchanged. PLEURA: There is a moderate right pleural effusion CARDIOVASCULAR: Moderate cardiomegaly OSSEOUS STRUCTURES: No significant abnormalities. VISUALIZED UPPER ABDOMEN: Normal. OTHER FINDINGS: None. IMPRESSION: Bilateral infiltrates and moderate right pleural effusion. Findings most consistent with CHF
[2016-08-20] MEDS: Potassium Chloride 20 mEq/15 ml LIQ UD GT SCH (09:47)
[2016-08-20] MEDS: Furosemide 40 mg/5 mL Oral Soln UD PO SCH (09:48)
[2016-08-20] MEDS: Meropenem 1g/NS 100mL IVPB 100 ML IVPB SCH ×2 (09:48→21:56)
--- NOTE | 2016-08-20 10:48 | PQF CHF ---
This form is a permanent part of the medical record Dr. Hartman, Chart reflects that BNP is rising, CXR consistent with CHF, treatment with diuretic, you noted CHF in your progress notes of 08/20/16. Could you please specify type and severity of the CHF? Clarification of your documentation is requested to better reflect the severity of illness and intensity of treatment of your patient. Indicators present [x] Diagnosis of CHF and/or history of CHF [x] BNP > 200 [x] Imaging Finding of Pulmonary Edema /Pleural Effusions [] Fluid/Volume Overload [] Pitting edema [] Ejection Fraction < 40% (Indicative of Systolic Heart Failure) [] Ejection Fraction > 40% (Indicative of Diastolic Heart Failure) [x] Dyspnea / Orthopenea / Paroxysmal Nocturnal Dyspnea [] Other: lasix Location in the medical record that reflects the above clinical findings: [] Treatment Provided: [] PHYSICIAN'S RESPONSE Based on your medical judgment of the clinical indicators outlined above, are you treating this patient for a known or suspected: [] Acute CHF [] Systolic [] Diastolic [] Combined [] Chronic CHF [] Systolic [] Diastolic [] Combined [] Acute on Chronic CHF []Systolic [] Diastolic [] Combined [] CHF due hypertension [] Acute systolic []Chronic systolic [] Acute/ chronic systolic [] Other, please indicate: [] [] If Unable to Determine, please check the box, sign and date. Present On Admission (POA) Indicator: [] Present at the time of admission [] Not present at the time of admission [] Clinically Undetermined In responding to this query, please exercise your independent professional judgment. The fact that a question is asked does not imply that any particular answer is desired or expected. Thank you for your clarification on this documentation. If you have any questions please call:[ ] * Thank you, [ ]Luz Maria Rosales [facility] #[id number] government minister DIDI
--- NOTE | 2016-08-20 10:51 | PN ---
DATE: 08/20/2016 The patient is comfortable. No shortness of breath noted. PHYSICAL EXAMINATION: VITAL SIGNS: Blood pressure is 158/94, the heart rate is in the 80s. NECK: Negative JVD. LUNGS: No rales noted. HEART: Reveals S1, S2. EXTREMITIES: Without edema. LABORATORIES: Hemoglobin is 9.6. Chemistries: BUN and creatinine are up to 42 and 0.6. IMPRESSION: 1. Pneumonia. 2. Resolution of congestive heart failure. 3. The patient is becoming more prerenal based on the IV Lasix. 4. History of cerebrovascular accident. 5. History of old inferior wall myocardial infarction. Given these findings, the patient can be switched to p.o. Lasix. From a cardiac perspective, no furt her testing is necessary. Justen Hartman MD cc: [id number] TT: 08/20/2016 10:50:37 Confirmation # [id number] Dictation # [id number] en
--- NOTE | 2016-08-20 13:38 | CP.PCM.PN ---
Subjective - Date & Time of Evaluation Date of Evaluation: 08/20/16 Time of Evaluation: 09:40 - Subjective Subjective: Comfortable, not in distress, afebrile overnight, no diarrhea. Objective - Vital Signs/Intake and Output Vital Signs (last 24 hours): Temp Pulse Resp BP Pulse Ox 98.8 F 89 21 158/94 H 98 08/20/16 08:00 08/20/16 08:00 08/20/16 08:00 08/20/16 08:00 08/20/16 08:00 Intake and Output: 08/20/16 08/20/16 06:59 18:59 Intake Total 0 Output Total 600 Balance -600 - Medications Medications: Current Medications Acetylcysteine (Acetylcysteine 20%) 4 ml IH BIDRESP [facility] Last Admin: 08/20/16 08:06 Dose: 4 ml Albuterol/Ipratropium (Duoneb 3 Mg/0.5 Mg (3 Ml) Ud) 3 ml IH [id number] [facility] Last Admin: 08/20/16 08:07 Dose: 3 ml Aspirin (Aspirin) 325 mg GT DAILY [facility] Last Admin: 08/19/16 09:11 Dose: 325 mg Docusate Sodium (Colace Liquid) 100 mg GT DAILY [facility] Last Admin: 08/19/16 09:11 Dose: 100 mg Famotidine (Pepcid) 20 mg GT DAILY [facility] Last Admin: 08/19/16 09:12 Dose: 20 mg Furosemide (Lasix) 40 mg PO DAILY [facility] Meropenem 1g/NS 100mL IVPB (Meropenem 1g/Ns 100ml Ivpb) 100 mls @ 100 mls/hr IVPB Q12 [facility] PRN Reason: Protocol Stop: 08/29/16 22:01 Last Admin: 08/19/16 21:40 Dose: 100 mls/hr Doxycycline Hyclate 100 mg/ (Sodium Chloride) 100 mls @ 100 mls/hr IVPB Q12 [facility] PRN Reason: Protocol Stop: 08/23/16 22:01 Last Admin: 08/19/16 22:45 Dose: 100 mls/hr Lisinopril (Zestril) 5 mg PO BID [facility] Last Admin: 08/19/16 17:00 Dose: 5 mg Metoprolol Tartrate (Lopressor) 25 mg GT BID [facility] Last Admin: 08/19/16 17:00 Dose: 25 mg Potassium Chloride (Potassium Chloride Oral Soln) 20 meq GT DAILY [facility] Last Admin: 08/19/16 09:12 Dose: 20 meq Spironolactone (Aldactone) 25 mg PO BID [facility] Last Admin: 08/19/16 17:00 Dose: 25 mg - Labs Labs: 08/20/16 07:55 08/20/16 06:45 PT 13.6 Seconds (9.9-11.8) H 08/15/16 17:20 INR 1.26 (0.93-1.08) H 08/15/16 17:20 APTT 31.1 Seconds (23.7-30.8) H 08/15/16 17:20 - Constitutional Appears: Non-toxic, No Acute Distress - Head Exam Head Exam: NORMAL INSPECTION - Neck Exam Neck Exam: absent: Lymphadenopathy, Meningismus - Respiratory Exam Respiratory Exam: Decreased Breath Sounds - Cardiovascular Exam Cardiovascular Exam: +S1, +S2 - GI/Abdominal Exam GI & Abdominal Exam: Soft. absent: Tenderness Assessment and Plan - Assessment and Plan (Free Text) Plan: Assessment Consider aspiration pneumonia, healthcare-associated, slowly improving; patient also with Klebsiella in the urine, consider UTI history of left lower lobe healthcare-associated pneumonia atrial fibrillation HTN peripheral vascular disease history of cerebrovascular accident with left sided carotid artery disease benign prostatic hyperplasia dementia Plan continue Merrem and Doxycycline (day 5) pending final blood cx, sputum cx; follow up identification of the gram negative bacilli in the urine; target 4-7 days of Doxy and Merrem, then we can switch to PO antibiotics to cover the Klebsiella UTI (ie. can switch to PO Augmentin and PO Doxycycline); PSA level is low Reviewed Dr. Denis's evaluation Discussed with Dr. Long Will continue to follow clinically
--- NOTE | 2016-08-20 16:25 | PN ---
DATE: 08/20/2016 SUBJECTIVE: The patient is seen lying in bed. Eyes are open. Does not respond. Does not follow co mmands. PHYSICAL EXAMINATION: VITAL SIGNS: Blood pressure 158/94, heart rate 89, respiratory rate 21, temperature 98.8. HEENT: Normocephalic, atraumatic. NECK: Supple, no JVD. LUNGS: Bilateral equal expansion, symmetrical air entry. CARDIAC: S1, S2, regular rate and rhythm, no murmur, no rub. ABDOMEN: Obese, distended, soft, nontender, bowel sounds present. EXTREMITIES: Trace lower extremity edema. INTAKE AND OUTPUT: . LABORATORY DATA: WBC 5.2, hemoglobin 9.6, hematocrit 30, platelets 241. Sodium 145, potassium 4.2, chloride 106, CO2 33, BUN 42, creatinine 0.7, glucose 102, calcium 8.5, albumin 2.7, corrected calciu m is 9.5. Urinalysis: Light yellow, cloudy, pH 6.0, specific gravity 1.020, protein 100, blood large, nitrite negative, leukocyte esterase large, WBCs too numerous to count, RBCs too numerous to count. CURRENT MEDICATIONS: Aldactone 25 b.i.d., aspirin 325, Colace 100, doxycycline 100 q. 12, Lasix 40 p .o. daily, Lopressor 25 b.i.d., meropenem 1 gram q. 12, Pepcid, potassium 40 b.i.d., Zestril 5 b.i.d. ASSESSMENT: 1. Shortness of breath/pneumonia/congestive heart failure. 2. Hypokalemia. 3. Alkalemia. 4. Dementia. 5. History of cerebrovascular accidents. 6. Hypertension. PLAN: 1. Follow up plasma aldosterone levels, renin activity. 2. Change Aldactone to 25 daily since potassium is normal now. 3. Continue Lasix 40 p.o. daily. 4. Complete antibiotics as per infectious disease recommendations. 5. Blood pressure is better controlled now with addition of Aldactone. 6. Discharge planning. 7. Check electrolytes next week. Catia Ochoa MD cc: [phone] TT: 08/20/2016 16:24:52 Confirmation # [id number] Dictation # [id number] mn
--- NOTE | 2016-08-20 17:25 | PN ---
DATE: 08/20/2016 A 81-year-old male resting comfortably this morning. PHYSICAL EXAMINATION: VITAL SIGNS: The patient's temp is 98.8, blood pressure is 158/94, oxygen sat is 98% on nasal cannul a at 3 liters. GENERAL: He is awake. NECK: Supple. LUNGS: Show rhonchi. HEART: An irregular S1, S2 rhythm. ABDOMEN: Soft, positive bowel sounds. Feeding tube in place. EXTREMITIES: Show no evidence of edema. LABORATORY DATA: Shows a WBC of 5.2, RBC 3.03, hemoglobin 9.6, hematocrit 30, platelet count 241. C hemistry shows normal electrolytes. The BUN is 42, the creatinine is 0.7. Chest x-ray report as osvaldo d by the radiologist shows findings consistent with infiltrates and CHF. Findings have been discussed with individual consultants. 1. Infectious disease is recommending continuing the antibiotics at this time for probable community -acquired pneumonia with IV meropenem and doxycycline. 2. Pulmonary is recommending continue respiratory treatment. 3. Cardiology believes that at this time the patient can be switched to p.o. Lasix. We will continu e to monitor the patient closely. 4. Renal is following the patient for his hypokalemia, which is currently improved and the Aldactone has been discontinued. We will continue current level of supportive care. Cornelia Long MD cc: [id number] TT: 08/20/2016 17:25:30 Confirmation # [id number] Dictation # [id number] sn
[2016-08-21] MEDS: Albuterol-Ipratrop 3 mg / 0.5 (3 ml) UD IH SCH ×3 (01:16→13:37)
[2016-08-21] MEDS: Acetylcysteine 20% Inhal Soln (4ml) IH SCH (07:40)
--- NOTE | 2016-08-21 09:26 | PN ---
DATE: 08/21/2016 SUBJECTIVE: The patient is currently seen on 3R. He is sitting up in bed. He appears to be comfort able. He is not communicating with me. He is receiving all his nutrition via his PEG tube. He annia ins on antibiotic therapy for possible aspiration pneumonia and diuretic therapy for CHF. He has mil d prerenal azotemia secondary to diuretic therapy and his potassium level has corrected. MEDICATIONS: Medication list reviewed. The patient is currently on inhalation therapy, Aldactone 25 mg a day, aspirin, Colace, doxycycline, p.o. Lasix, Lopressor, meropenem, Pepcid, potassium 20 mEq a day, and lisinopril 5 mg twice a day. OBJECTIVE: INTAKE AND OUTPUT: Intake not charted, output 1100. VITAL SIGNS: Blood pressure 147/77, pulse 61, temperature 98.6, respiratory rate 21. HEENT: Shows him to be normocephalic, atraumatic. Conjunctivae are pale. Sclerae are nonicteric. NECK: Supple, no neck vein distention. CHEST: Clear to auscultation and percussion. No rales, no rhonchi, no wheezing. CARDIOVASCULAR: Shows an irregular S1, S2. AI/MR/TR. No S3, no S4, no rub. ABDOMEN: Soft. Bowel sounds normal. Positive PEG tube. EXTREMITIES: Show no lower extremity cyanosis, clubbing or edema. LABORATORY DATA AND IMAGING: Followup chest x-ray from yesterday shows persistent CHF with a right p leural effusion. Echocardiogram done shows ejection fraction of 30% with concentric LVH with a left pleural effusion. Positive aortic insufficiency, mitral regurgitation, tricuspid regurgitation. Pos itive severe pulmonary hypertension. LABORATORY DATA: Labs from yesterday showed normal electrolytes. Potassium is up to 4.2, BUN is 42 with a creatinine of 0.7. This is likely a diuretic effect. Calcium 8.5 with an albumin of 2.7. Wh ite blood cell count 5.2; hemoglobin 9.6; platelet count is 241,000. Urine showed TNTC red blood ruddy ls and white blood cells. Microbiology: Urine is positive for Klebsiella. Blood cultures are negat yunier at 5 days. ASSESSMENT: 1. Mild prerenal azotemia in a patient with no past history of chronic kidney disease. This is like ly a diuretic effect. 2. Shortness of breath secondary to in part congestive heart failure and part secondary to possible aspiration pneumonia. The patient continues on antibiotic therapy and diuretic therapy. 3. Hypokalemia, resolved, was treated successfully with potassium supplements and Aldactone. Pendnahum mota today's blood work, the patient will remain on both of these medications. 4. History of Klebsiella urinary tract infection being treated with antibiotic therapy. 5. 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 The patient being followed by pulmonary and cardiology. 6. History of cerebrovascular accident. 7. History of hypertension. PLAN: 1. Today's labs are pending. I will order a new set of labs. In pending is potassium level and amy l make adjustments in the spironolactone and potassium dose. 2. I do not expect his prerenal azotemia to improve as the patient remains on double diuretic therap y at this time. 3. Continue antibiotic therapy for his likely aspiration pneumonia. 4. Continued pulmonary and cardiology followup in light of his severe pulmonary hypertension, cardio myopathy and congestive heart failure. 5. Complete a course of antibiotics for his Klebsiella urinary tract infection. 6. Try and obtain accurate I's and O's. Mikhail Alexis MD cc: [id number] TT: 08/21/2016 09:25:55 Confirmation # [id number] Dictation # [id number] dhaval
--- NOTE | 2016-08-21 09:32 | PN ---
DATE: 08/21/2016 The patient was seen and examined at bedside. He appears comfortable, he is not in respiratory distr ess. His temperature is 98, pulse is 95, respirations 20, blood pressure 176/96. He is on nasal cannula. EXAMINATION OF HEAD, EARS, NOSE AND THROAT: Within normal limits. NECK: Supple, with no jugular vein distention. CHEST: Symmetrical. HEART: S1, S2. No S3. Regular. LUNGS: Diminished breath sounds, with few rhonchi at both bases. GASTROINTESTINAL: Abdomen soft, nontender, with no organomegaly. SKIN: No acute skin rash. NEUROLOGICALLY: Limited at present time. ASSESSMENT: 1. Recurrent aspiration pneumonia. 2. Resolved bronchospasm. 3. Chronic dysphagia. 4. History of multiple cerebrovascular accidents. PLAN: Currently, the patient is comfortable. Oxygen saturation 98% on nasal cannula. There is some improvement in chest x-ray, with decreased pulmonary infiltrates. Will continue with antibiotics as per infectious disease. Nebulizer treatments were ordered, and there is some progress. Marvin Nichols MD cc: [id number] TT: 08/21/2016 09:31:33 Confirmation # [id number] Dictation # [id number] jn
--- NOTE | 2016-08-21 10:30 | DS ---
A 81-year-old male in bed on the third floor at [facility]. Nursing staff relates that lisy ovalle had a quiet night. PHYSICAL EXAMINATION: VITAL SIGNS: His temp is 98.6, his pulse is 95. His blood pressure is 146/77, his respiratory rate is 21. His oxygen saturation is 98% on 3 L of nasal cannula. GENERAL: The patient is awake and alert. NECK: Supple. LUNGS: Show bilateral rhonchi with diminished breath sounds at the bases. HEART: An irregular S1, S2 rhythm. ABDOMEN: Soft with positive bowel sounds. Feeding tube is in place. EXTREMITIES: Show no evidence of edema. LABORATORY DATA: Pending. Notes of pulmonary and renal have been reviewed. The patient currently has ____, being treated for aspiration pneumonia, being followed by infectious disease. He has improving congestive heart failure. Clinically, his pneumonia is slightly better. We will continue with the current level of care as prescribed by nephrology, renal, pulmonary, infect ious disease and cardiology, continuing his chest physiotherapy, his antibiotics and his breathing tr eatments. He has a living will. He is a DNR/DNI. Discussion has been had with the nursing supervis or at [facility] as well as with the nursing library supervisor at [place] to ensure that the patient has the appropriate medications upon returning to [facility] to continue his level of care. Cornelia Long MD cc: [id number] TT: 08/21/2016 10:29:11 pr
[2016-08-21 10:35] LABS: HEMATOCRIT 32.3 % (42.0-52.0); MEAN CELL VOLUME 99.1 fL (80.0-105.0); MEAN CORPUSCULAR HEMOGLOBIN 31.6 pg (25.0-35.0); MEAN CORPUSCULAR HGB CONC 31.9 g/dl (31.0-37.0); MEAN PLATELET VOLUME 9.5 fl (7.0-11.0); RED CELL DISTRIBUTION WIDTH 15.5 % (11.5-14.5); WHITE BLOOD COUNT 6.3 10^3/ul (4.5-11.0)
[2016-08-21 10:46] LABS: ALB/GLOB RATIO 0.9 (1.1-1.8); ALKALINE PHOSPHATASE 63 U/L (38-133); ALT/SGPT 35 U/L (7-56); AST/SGOT 24 U/L (15-59); BILIRUBIN,TOTAL 0.6 mg/dL (0.2-1.3); BLOOD UREA NITROGEN 41 mg/dL (7-21); CALCIUM 8.5 mg/dL (8.4-10.5); CARBON DIOXIDE 30 mmol/L (21-33); CHLORIDE 107 mmol/L (98-107); GFR AFRICAN-AMERICAN > 60; GLUCOSE,RANDOM 114 mg/dL (70-110); POTASSIUM 3.9 mmol/L (3.6-5.0); SODIUM 146 mmol/L (132-148); TOTAL PROTEIN 5.9 g/dL (5.8-8.3)
[2016-08-21] MEDS: Furosemide 40 mg/5 mL Oral Soln UD PO SCH (10:54)
[2016-08-21] MEDS: Meropenem 1g/NS 100mL IVPB 100 ML IVPB SCH (10:55)
[2016-08-21] MEDS: Potassium Chloride 20 mEq/15 ml LIQ UD GT SCH (10:55)
[2016-08-21 16:10] VITALS: PULSE 91; RESP 20; TEMP 98.7; O2SAT 96
--- NOTE | 2016-08-21 17:04 | CP.PCM.PN ---
Subjective - Date & Time of Evaluation Date of Evaluation: 08/21/16 Time of Evaluation: 11:05 - Subjective Subjective: Comfortable in bed, not in distress, no fevers overnight, breathing better, no diarrhea. Objective - Vital Signs/Intake and Output Vital Signs (last 24 hours): Temp Pulse Resp BP Pulse Ox 98.2 F 101 H 18 105/65 93 L 08/20/16 16:00 08/20/16 18:21 08/20/16 16:00 08/20/16 18:21 08/20/16 16:00 Intake and Output: 08/21/16 08/21/16 06:59 18:59 Intake Total 0 0 Output Total 400 475 Balance -400 -475 - Medications Medications: Current Medications Acetylcysteine (Acetylcysteine 20%) 4 ml IH BIDRESP [facility] Last Admin: 08/21/16 07:40 Dose: 4 ml Albuterol/Ipratropium (Duoneb 3 Mg/0.5 Mg (3 Ml) Ud) 3 ml IH [id number] [facility] Last Admin: 08/21/16 07:41 Dose: 3 ml Aspirin (Aspirin) 325 mg GT DAILY [facility] Last Admin: 08/20/16 09:47 Dose: 325 mg Docusate Sodium (Colace Liquid) 100 mg GT DAILY [facility] Last Admin: 08/20/16 09:47 Dose: 100 mg Famotidine (Pepcid) 20 mg GT DAILY [facility] Last Admin: 08/20/16 09:47 Dose: 20 mg Furosemide (Lasix) 40 mg PO DAILY [facility] Last Admin: 08/20/16 09:48 Dose: 40 mg Meropenem 1g/NS 100mL IVPB (Meropenem 1g/Ns 100ml Ivpb) 100 mls @ 100 mls/hr IVPB Q12 [facility] PRN Reason: Protocol Stop: 08/29/16 22:01 Last Admin: 08/20/16 21:56 Dose: 100 mls/hr Doxycycline Hyclate 100 mg/ (Sodium Chloride) 100 mls @ 100 mls/hr IVPB Q12 [facility] PRN Reason: Protocol Stop: 08/23/16 22:01 Last Admin: 08/20/16 21:57 Dose: 100 mls/hr Lisinopril (Zestril) 5 mg PO BID [facility] Last Admin: 08/20/16 18:21 Dose: 5 mg Metoprolol Tartrate (Lopressor) 25 mg GT BID [facility] Last Admin: 08/20/16 18:20 Dose: 25 mg Potassium Chloride (Potassium Chloride Oral Soln) 20 meq GT DAILY [facility] Last Admin: 08/20/16 09:47 Dose: 20 meq Spironolactone (Aldactone) 25 mg PO DAILY [facility] - Labs Labs: 08/20/16 07:55 08/20/16 06:45 PT 13.6 Seconds (9.9-11.8) H 08/15/16 17:20 INR 1.26 (0.93-1.08) H 08/15/16 17:20 APTT 31.1 Seconds (23.7-30.8) H 08/15/16 17:20 - Constitutional Appears: Non-toxic, No Acute Distress - Head Exam Head Exam: NORMAL INSPECTION - Respiratory Exam Respiratory Exam: Decreased Breath Sounds - Cardiovascular Exam Cardiovascular Exam: +S1, +S2 - GI/Abdominal Exam GI & Abdominal Exam: Soft. absent: Tenderness Assessment and Plan - Assessment and Plan (Free Text) Plan: Assessment Consider aspiration pneumonia, healthcare-associated, clinically improving; patient also with Klebsiella in the urine, consider UTI history of left lower lobe healthcare-associated pneumonia atrial fibrillation HTN peripheral vascular disease history of cerebrovascular accident with left sided carotid artery disease benign prostatic hyperplasia dementia Plan continue Merrem and Doxycycline (day 6); target 4-7 days of Doxy and Merrem, then we can switch to PO antibiotics to cover the Klebsiella UTI (ie. can switch to PO Augmentin and PO Doxycycline) to complete the therapy; PSA level is low Reviewed Dr. Denis's evaluation Discussed with Dr. Long today Will continue to follow clinically
[2016-08-21 17:45] VITALS: BP 135/65
[2016-08-21 21:58] LABS: ALDOSTERONE <1 ng/dL (())
[2016-08-22] MEDS ORDERED: Multivitamin Oral Soln GT SCH (10:00)
[2016-08-22] MEDS ORDERED: MULTIVITAMIN GT SCH (10:00)
[2016-08-22] MEDS ORDERED: Multivitamin Oral Soln PO SCH (10:00)
--- NOTE | 2016-08-23 11:20 | PQF CHF ---
08/23/16 Dr. Hartman, Please document type and severity of CHF for this patient, as listed below. Thank you. Clarification of your documentation is requested to better reflect the severity of illness and intensity of treatment of your patient. Indicators present [] Diagnosis of CHF and/or history of CHF [] BNP > 200 [] Imaging Finding of Pulmonary Edema /Pleural Effusions [] Fluid/Volume Overload [] Pitting edema [] Ejection Fraction < 40% (Indicative of Systolic Heart Failure) [] Ejection Fraction > 40% (Indicative of Diastolic Heart Failure) [] Dyspnea / Orthopenea / Paroxysmal Nocturnal Dyspnea [] Other: Location in the medical record that reflects the above clinical findings: [] Treatment Provided: [] PHYSICIAN'S RESPONSE Based on your medical judgment of the clinical indicators outlined above, are you treating this patient for a known or suspected: [] Acute CHF [] Systolic [] Diastolic [] Combined [] Chronic CHF [] Systolic [] Diastolic [] Combined [] Acute on Chronic CHF []Systolic [] Diastolic [] Combined [] CHF due hypertension [] Acute systolic []Chronic systolic [] Acute/ chronic systolic [] Other, please indicate: [] [] If Unable to Determine, please check the box, sign and date. Present On Admission (POA) Indicator: [] Present at the time of admission [] Not present at the time of admission [] Clinically Undetermined In responding to this query, please exercise your independent professional judgment. The fact that a question is asked does not imply that any particular answer is desired or expected. Thank you for your clarification on this documentation. 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
== END 2016-08-21 19:40 | DRG 177 ==
LOC: ED 17:10 → ERH 18:21 → 3RSO 19:56
PROVIDERS: ADMIT Internal Medicine; ATTEND Internal Medicine
DX: J69.0 Pneumonitis due to inhalation of food and vomit (principal); G93.41 Metabolic encephalopathy; I50.21 Acute systolic (congestive) heart failure; E87.3 Alkalosis; I42.0 Dilated cardiomyopathy; I48.2 Chronic atrial fibrillation; R13.10 Dysphagia, unspecified; E87.1 Hypo-osmolality and hyponatremia; G70.9 Myoneural disorder, unspecified; M86.9 Osteomyelitis, unspecified; N39.0 Urinary tract infection, site not specified; L97.429 Non-pressure chronic ulcer of left heel and midfoot with unspecified severity; L97.419 Non-pressure chronic ulcer of right heel and midfoot with unspecified severity; I27.2 Other secondary pulmonary hypertension; I11.0 Hypertensive heart disease with heart failure; B96.1 Klebsiella pneumoniae [K. pneumoniae] as the cause of diseases classified elsewhere; C44.90 Unspecified malignant neoplasm of skin, unspecified; F01.50 Vascular dementia, unspecified severity, without behavioral disturbance, psychotic disturbance, mood disturbance, and anxiety; E78.5 Hyperlipidemia, unspecified; E87.6 Hypokalemia; D64.9 Anemia, unspecified; I16.0 Hypertensive urgency; I25.10 Atherosclerotic heart disease of native coronary artery without angina pectoris; I25.5 Ischemic cardiomyopathy; I73.9 Peripheral vascular disease, unspecified; J98.01 Acute bronchospasm; K21.9 Gastro-esophageal reflux disease without esophagitis; M21.371 Foot drop, right foot; M21.372 Foot drop, left foot; M48.00 Spinal stenosis, site unspecified; N40.0 Benign prostatic hyperplasia without lower urinary tract symptoms; R09.02 Hypoxemia; R62.7 Adult failure to thrive; T50.2X5A Adverse effect of carbonic-anhydrase inhibitors, benzothiadiazides and other diuretics, initial encounter; Z86.73 Personal history of transient ischemic attack (TIA), and cerebral infarction without residual deficits; Z87.01 Personal history of pneumonia (recurrent); Z87.440 Personal history of urinary (tract) infections; I25.2 Old myocardial infarction; R29.6 Repeated falls; Z66 Do not resuscitate; Z79.01 Long term (current) use of anticoagulants; Z79.82 Long term (current) use of aspirin; Z79.899 Other long term (current) drug therapy; Z85.828 Personal history of other malignant neoplasm of skin; Z95.0 Presence of cardiac pacemaker; Z95.5 Presence of coronary angioplasty implant and graft; I51.7 Cardiomegaly; E26.9 Hyperaldosteronism, unspecified; Z87.81 Personal history of (healed) traumatic fracture; Z90.49 Acquired absence of other specified parts of digestive tract; Z93.1 Gastrostomy status

== ENCOUNTER 2016-08-30 14:47 | Inpatient (IN) | payer MEDICARE, OTHER ==
[2016-08-30 14:47] VITALS: PULSE 52
[2016-08-30 15:35] LABS: ADD MANUAL DIFF? NO
--- NOTE | 2016-08-30 15:44 | ED PDOC ---
Arrival/HPI - General Chief Complaint: Shortness Of Breath Time Seen by Provider: 08/30/16 14:53 Historian: [facility] Caveat: Altered Mental Status (unresponsive to verbal stimuli) - Critical Care Narrative Critical Care (Text): 08/30/16 15:28 81 year old male with past medical history of dementia, hyertension, CAD, multiple strokes, and atrial fibrillation was brought from [facility] for having a fever 101.4. One dose of Tylenol was given at the assisted. Per chart review, patient was recently discharge from [facility] on 08/21/16 for pneumonia. Patient is DNR/DNI. Unable to obtain further review of system due to patient's mental status. - History of Present Illness Time/Duration: 24 hours Symptom Onset: Sudden Past Medical History - Provider Review Nursing Documentation Reviewed: Yes - Infectious Disease Hx of Infectious Diseases: None - Tetanus Immunization Tetanus Immunization: Unknown - Cardiac Hx Congestive Heart Failure: Yes - Pulmonary Hx Respiratory Disorders: No Hx Bronchitis: Yes - Neurological Hx Paralysis: No - HEENT Hx HEENT Disorder: No - Renal Hx Renal Disorder: No - Endocrine/Metabolic Hx Endocrine Disorders: No - Hematological/Oncological Hx Blood Transfusions: Yes Hx Blood Transfusion Reaction: No - Integumentary Hx Dermatological Disorder: Yes Other/Comment: SKIN CANCER, SACRAL WOUND FROM HOME- DTI, BILATERAL FOOT DROP, bilateral heel ulcers - Musculoskeletal/Rheumatological Hx Falls: Yes - Gastrointestinal Hx Gastroesophageal Reflux: Yes - Genitourinary/Gynecological Hx Genitourinary Disorders: Yes Hx Prostate Problems: Yes (bph) - Psychiatric Hx Emotional Abuse: No Hx Physical Abuse: No Hx Substance Use: No - Past Surgical History Past Surgical History: Non-Contributing - Surgical History Hx Cardiac Catheterization: Yes (with stents) - Anesthesia Hx Anesthesia: Yes Hx Anesthesia Reactions: No Hx Malignant Hyperthermia: No - Suicidal Assessment Feels Threatened In Home Enviroment: No Family/Social History - Physician Review Nursing Documentation Reviewed: Yes Family/Social History: No Known Family HX Smoking Status: Smoker Currrent Status Unknown Hx Alcohol Use: No Hx Substance Use: No Hx Substance Use Treatment: No Allergies/Home Meds Allergies/Adverse Reactions: Allergies No Known Allergies Allergy (Verified 08/15/16 17:38) Home Medications: Home Meds Medication Instructions Recorded Confirmed Aspirin 325 mg GT DAILY 08/15/16 08/30/16 Docusate Sodium 100 mg GT DAILY 08/15/16 08/30/16 Famotidine [Pepcid] 20 mg GT DAILY 08/15/16 08/30/16 Lisinopril [Zestril] 5 mg GT BID 08/15/16 08/30/16 Metoprolol Succinate [Toprol XL] 25 mg GT BID 08/15/16 08/15/16 Multivitamin [Men's Multi-Vitamin] 1 mg GT DAILY 08/15/16 08/30/16 Furosemide [Lasix] 40 mg GT DAILY 08/30/16 08/30/16 Potassium Chloride [Potassium 20 meq GT BID 08/30/16 08/30/16 Chloride Oral Soln] Spironolactone [Aldactone] 25 mg GT BID 08/30/16 08/30/16 Review of Systems - Review of Systems Systems not reviewed;Unavailable: Dementia Physical Exam - Physical Exam Physical Exam Limitations: Altered Mental Status Vital Signs Reviewed: Yes Vital Signs Temp Pulse Resp BP Pulse Ox 08/30/16 17:57 89 26 H 112/66 94 L 08/30/16 15:24 20 99 08/30/16 14:47 99 F 112 H 20 139/101 H 96 Temperature: Afebrile Blood Pressure: Hypertensive Pulse: Tachycardic Respiratory Rate: Agonal Appearance: Positive for: Ill-Appearing Mental Status: No: Alert and Oriented X 3 - Systems Exam Head: Present: Atraumatic, Normocephalic Conjunctiva: Present: Normal Mouth: Present: Moist Mucous Membranes Respiratory/Chest: Present: Accessory Muscle Use, Tachypneic. No: Respiratory Distress Cardiovascular: Present: Normal S1, S2, Irregular Rhythm, Peripheal Pulses Present Abdomen: Present: Normal Bowel Sounds, Feeding Tubes (PEG tube in place). No: Tenderness, Distention, Peritoneal Signs Upper Extremity: Present: Normal Inspection. No: Cyanosis, Edema Lower Extremity: Present: Normal Inspection. No: Edema Neurological: Present: Other (aphasic) Skin: Present: Warm, Dry, Normal Color. No: Rashes Psychiatric: No: Alert, Oriented x 3 Medical Decision Making ED Course and Treatment: 08/30/16 16:50 -CXR -EKG -Urine and blood cultures -Zosyn and vancomycin for HCAP since patient was hospitalized within the last 90 days - 08/30/16 17:[address] Bhatt notified. 08/30/16 17:05 Case discussed with patient's PMD Dr. Long, recommended patient to be admitted to med/surg. BNP and albuterol ordered. Consult placed for Pulmonary Re-evaluation Time: 17:15 Reassessment Condition: Unchanged - Lab Interpretations Lab Results: 08/30/16 15:20 08/30/16 15:20 Lab Results 08/30/16 15:47: pO2 156 H, VBG pH 7.51 H, VBG pCO2 43.0, VBG HCO3 34.3 H, VBG Total CO2 35.6 H, VBG O2 Sat (Calc) 99.6 H, VBG Base Excess 10.1 H, VBG Potassium 4.6, Sodium 142.0, Chloride 107.0, Glucose 102, Lactate 1.2, FiO2 21.0 , Venous Blood Potassium 4.6 08/30/16 15:35: NT-Pro-B Natriuret Pep 97407 H 08/30/16 15:20: WBC 7.3, RBC 3.47 L, Hgb 10.8 L, Hct 34.1 L, MCV 98.3, MCH 31.1 , MCHC 31.7, RDW 16.1 H, Plt Count 296, MPV 10.1, Gran % 79.8 H, Lymph % (Auto) 9.8 L, [place] % (Auto) 8.4 H, Eos % (Auto) 1.9, Baso % (Auto) 0.1, Gran # 5.80, Lymph # 0.7 L, [place] # 0.6, Eos # 0.1, Baso # 0.01, Sodium 142, Chloride 101, Potassium 3.9, Carbon Dioxide 33, Anion Gap 12, BUN 44 H, Creatinine 0.7, Est GFR ( Amer) > 60, Est GFR (Non-Af Amer) > 60, Random Glucose 104, Calcium 8.5, Total Bilirubin 0.6, AST 32, ALT 43, Alkaline Phosphatase 62, Total Protein 6.1, Albumin 2.9 L, Globulin 3.2, Albumin/Globulin Ratio 0.9 L - RAD Interpretation Narrative RAD Interpretations (Text): 08/30/16 18:03 Bilateral infiltrates slightly improved compared to previous CXR taken 08/20/16 Radiology Orders: 08/30/16 15:17 CXR [CHEST PORTABLE] [RAD] Stat [employer]: ED Physician - EKG Interpretation EKG Interpretation (Text): 08/30/16 18:04 Right bundle branch block and Atrial fibrillation appreciated, unchanged from previous EKG. Read by me. Interpreted by ED Physician: Yes - Medication Orders Current Medication Orders: Albuterol Sulfate (Albuterol 0.083% Inhal Tricia (2.5 Mg/3 Ml) Ud) 2.5 mg IH [id number] PETTY Dextrose/Sodium Chloride (Dextrose 5%/0.45% Ns 1000 Ml) 1,000 mls @ 60 mls/hr IV .[id number] PETTY Discontinued Medications Piperacillin Sod/Tazobactam Sod (Zosyn 3.375 In Ns 100ml) 100 mls @ 200 mls/hr IVPB STAT STA PRN Reason: Protocol Stop: 08/30/16 16:40 Last Admin: 08/30/16 16:30 Dose: 200 MLS/HR eMAR Start Stop Document 08/30/16 16:30 JOL (Rec: 08/30/16 17:09 JOL [id number]) Intravenous Solution Start Date 08/30/16 Start Time 16:30 End Date 08/30/16 End time 17:00 Total Infusion Time 30 Vancomycin HCl (Vancomycin 1gm) 250 mls @ 167 mls/hr IVPB STAT STA PRN Reason: Protocol Stop: 08/30/16 17:40 - PA / LAY OUT INSPECTOR / Resident Statement / has examined the patient and agrees with the treatment plan. Disposition/Present on Arrival - Present on Arrival Any Indicators Present on Arrival: No History of DVT/PE: No History of Uncontrolled Diabetes: No Urinary Catheter: Yes History of Decub. Ulcer: No History Surgical Site Infection Following: None - Disposition Have Diagnosis and Disposition been Completed?: Yes Diagnosis: Sepsis Disposition: HOSPITALIZED Disposition Time: 18:13 Patient Plan: Admission Patient Problems: Current Active Problems Problem Status Diagnosed Altered mental status Acute Dysphagia Acute Pneumonia Acute Sepsis Acute Condition: FAIR Discharge Instructions (ExitCare): Sepsis (ED)
[2016-08-30 15:53] LABS: VENOUS BLOOD GAS BASE EXCESS 10.1 mmol/L (0.0-2.0); VENOUS BLOOD PH 7.51 (7.32-7.43)
[2016-08-30 16:10] LABS: ALB/GLOB RATIO 0.9 (1.1-1.8); ALKALINE PHOSPHATASE 62 U/L (38-133); ALT/SGPT 43 U/L (7-56); AST/SGOT 32 U/L (15-59); BILIRUBIN,TOTAL 0.6 mg/dL (0.2-1.3); BLOOD UREA NITROGEN 44 mg/dL (7-21); CALCIUM 8.5 mg/dL (8.4-10.5); CARBON DIOXIDE 33 mmol/L (21-33); CHLORIDE 101 mmol/L (98-107); GFR AFRICAN-AMERICAN > 60; GLUCOSE,RANDOM 104 mg/dL (70-110); POTASSIUM 3.9 mmol/L (3.6-5.0); SODIUM 142 mmol/L (132-148); TOTAL PROTEIN 6.1 g/dL (5.8-8.3)
[2016-08-30] MEDS ORDERED: Vancomycin 1gm in NS 250ml 250 ML IVPB STA (16:11)
[2016-08-30] MEDS ORDERED: Piperacillin/Tazobact 3.375 gm 100 ML IVPB STA (16:11)
[2016-08-30 16:28] LABS: BASO # 0.01 K/mm3 (0.0-2.0); BASO % 0.1 % (0.0-3.0); EOS # 0.1 (0.0-0.7); EOS % 1.9 % (1.5-5.0); GRAN % 79.8 % (50.0-68.0); HEMATOCRIT 34.1 % (42.0-52.0); LYMPH # 0.7 (1.2-3.4); LYMPH % 9.8 % (22.0-35.0); MEAN CELL VOLUME 98.3 fL (80.0-105.0); MEAN CORPUSCULAR HEMOGLOBIN 31.1 pg (25.0-35.0); MEAN CORPUSCULAR HGB CONC 31.7 g/dl (31.0-37.0); MEAN PLATELET VOLUME 10.1 fl (7.0-11.0); MONO # 0.6 (0.1-0.6); MONO % 8.4 % (1.0-6.0); PLATELET COUNT 296 10^3/uL (120.0-450.0); RED CELL DISTRIBUTION WIDTH 16.1 % (11.5-14.5); WHITE BLOOD COUNT 7.3 10^3/ul (4.5-11.0)
[2016-08-30 18:27] LABS: URINE BILIRUBIN NEGATIVE (NEGATIVE); URINE BLOOD SMALL (NEGATIVE); URINE GLUCOSE (UA) NEGATIVE (NEGATIVE); URINE KETONE NEGATIVE (NEGATIVE); URINE LEUKOCYTE ESTERASE MODERATE Leu/uL (NEGATIVE); URINE PROTEIN TRACE mg/dL (<30 mg/dL); URINE UROBILINOGEN 0.2 E.U./dL (<1 E.U./dL)
[2016-08-30 18:29] LABS: URINE APPEARANCE SL CLOUDY (CLEAR); URINE COLOR YELLOW (YELLOW)
[2016-08-30 18:44] LABS: URINE BACTERIA FEW (NEG); URINE EPITHELIAL CELLS 0 - 2 /hpf (0-5); URINE RBC 0 - 2 /hpf (0-2); URINE WBC TNTC /hpf (0-6)
[2016-08-30] MEDS: Dextrose 5%/0.45% NS 1,000 ML IV SCH (18:57)
[2016-08-30] MEDS ORDERED: Metoprolol Succinate 25 mg XL Tab PO SCH (19:00)
[2016-08-30] MEDS: Acetylcysteine 20% Inhal Soln (4ml) IH SCH (20:59)
[2016-08-30] MEDS: Albuterol 0.083% Inhal Sol (2.5 mg/3 mL) UD IH SCH (20:59)
[2016-08-30] MEDS: Albuterol-Ipratrop 3 mg / 0.5 (3 ml) UD IH SCH (21:00)
[2016-08-30 23:09] VITALS: BMI 18.8
[2016-08-30] MEDS ORDERED: Pneumococcal 23-Valent Vaccine IM ONE (23:10)
[2016-08-31] MEDS: Albuterol 0.083% Inhal Sol (2.5 mg/3 mL) UD IH SCH (02:19)
[2016-08-31] MEDS: Albuterol-Ipratrop 3 mg / 0.5 (3 ml) UD IH SCH ×5 (02:19→23:28)
[2016-08-31] MEDS: Acetylcysteine 20% Inhal Soln (4ml) IH SCH ×2 (07:37→20:02)
--- NOTE | 2016-08-31 08:16 | CON ---
DATE: 08/31/2016 REASON FOR CONSULTATION: Aspiration. REFERRING PHYSICIAN: Dr. Cornelia Long. History is obtained via extensive discussion with the night nurse. I have also discussed the case with Dr. Long at length. I have also reviewed the chart at length. HISTORY OF PRESENT ILLNESS: The patient is a 80-year-old chronically ill male, care home resident, with past medical history significant for recent aspiration pneumonia, chronic dysphagia, status post multiple strokes, status post percutaneous endoscopic gastrostomy tube placement, coronary artery disease , status post multiple cardiac stents, pulmonary hypertension, atrial fibrillation, who was transferred from [facility] - because of fevers. Apparently, the patient's temperature was 101.4 at the care home - which prompted them to send the patient to the Emergency Room for additional evaluation. Again, I did discuss the case with Dr. Long and the night nurse at length. The patient is not short of breath at rest. The night nurse does note an occasional minimal cough with no sputum production. There is no history of chest pain, coughing up of blood or chest pain - made worse with deep respirations. As above, the patient did present with fevers - from the care home. No history of chills or infectious exposure. No history of night sweats , weight loss or appetite change prior to the above events. No history of leg or calf pains. No history of syncope or diaphoresis. No history of recent travel or trauma. REVIEW OF SYSTEMS: No history of nausea, vomiting or diarrhea. No acute urinary symptoms. No new neurological or musculoskeletal complaints. Rest of the review of systems is negative. ALLERGIES: No known allergies. SOCIAL HISTORY: Negative for tobacco, negative for alcohol. FAMILY HISTORY: No inheritable diseases. HOME MEDICATIONS: Include Aldactone, Zestril, Lasix, Pepcid, DuoNeb, Mucomyst. PHYSICAL EXAMINATION: GENERAL: The patient is comfortable at rest. He is not short of breath. He is awake and alert. VITAL SIGNS: Temperature is 99.0, pulse 89, respirations 20, blood pressure 112 /66. Oxygen saturation on nasal cannula is 95%. HEENT: Normocephalic, atraumatic. NECK: No JVD. CARDIOVASCULAR: Positive S1, S2. No S3. LUNGS: Decreased breath sounds at the bases. Minimal bilateral rhonchi. No wheezing. EXTREMITIES: No clubbing, cyanosis, or edema. Calves are nontender to palpation. GASTROINTESTINAL: Abdomen is soft, nontender, nondistended. Bowel sounds are positive. There is a PEG tube in place. SKIN: No acute rash. NEUROLOGIC: Limited at the present time. PERTINENT LABORATORY DATA: Chest x-ray was done and reviewed. Compared to the previous films - there is a definite decrease in the pulmonary infiltrates - especially in the right lung. There appears to be underlying mild pulmonary vascular congestive changes. There is also a probable small left pleural effusion. Urinalysis was done in the Emergency Room. Results: Urine leukocyte esterase-- moderate, urine white count-- too numerous to count. CBC: White count 7.3, hemoglobin 10.8, hematocrit 34.1, platelets of 296. Complete metabolic profile: BUN 44, albumin 2.9, B-type natriuretic peptide 12, 500. Rest of the metabolic profile is within normal limits. IMPRESSION: 1. Sepsis syndrome. 2. Rule out urinary tract infection. 3. Chronic aspiration. 4. Mild bronchospasm. 5. Anemia. 6. Rule out congestive heart failure. PLAN: The patient presents to [facility] - transferred from [facility] - because of fevers. Apparently, the patient's temperature was 101.4 at the care home - which prompted them to send the patient to the Emergency Room for additional evaluation and treatment. Again, I did discuss the case with the night nurse at length. The night nurse notes no significant pulmonary symptoms at the present time. I did review the x-ray as above. Compared to the previous films, there is a definite decrease in the pulmonary infiltrates--especially in the right lung. As above,there is a mild increase in the pulmonary vascular congestive changes, with a probable small left pleural effusion. In addition, upon laboratory review, the B-type natriuretic peptide is significantly elevated. The patient is currently on Aldactone. On physical exam, the patient is in mild bronchospasm. However, there is no significant alveolar arterial gradient. I will continue with the current nebulizer treatments and Mucomyst for now. I would continue with the antibiotic coverage as per infectious disease. Input by Dr. Bhatt is noted. Temperatures are decreasing. I will also continue with the aspiration precautions. Clinical status of the patient appears improved - while in the hospital. However, the overall status/prognosis of this chronically ill elderly patient remains rather poor. I will discuss the above with Dr. Long this morning. Thank you very much for this pulmonary consultation. Audi Denis MD cc: [id number] TT: 08/31/2016 08:16:13 Confirmation # [id number] Dictation # [id number] dhaval TOLBERT
[2016-08-31 08:22] LABS: ADD MANUAL DIFF? NO
[2016-08-31 08:34] LABS: BASO # 0.02 K/mm3 (0.0-2.0); BASO % 0.4 % (0.0-3.0); EOS # 0.2 (0.0-0.7); EOS % 2.9 % (1.5-5.0); GRAN # 4.33 (1.4-6.5); GRAN % 79.5 % (50.0-68.0); HEMATOCRIT 32.1 % (42.0-52.0); LYMPH # 0.5 (1.2-3.4); LYMPH % 9.9 % (22.0-35.0); MEAN CELL VOLUME 98.2 fL (80.0-105.0); MEAN CORPUSCULAR HEMOGLOBIN 31.2 pg (25.0-35.0); MEAN CORPUSCULAR HGB CONC 31.8 g/dl (31.0-37.0); MEAN PLATELET VOLUME 9.8 fl (7.0-11.0); MONO # 0.4 (0.1-0.6); MONO % 7.3 % (1.0-6.0); PLATELET COUNT 249 10^3/uL (120.0-450.0); WHITE BLOOD COUNT 5.5 10^3/ul (4.5-11.0)
[2016-08-31 08:35] LABS: BLOOD UREA NITROGEN 41 mg/dL (7-21); CALCIUM 8.2 mg/dL (8.4-10.5); CARBON DIOXIDE 32 mmol/L (21-33); CHLORIDE 103 mmol/L (98-107); GFR AFRICAN-AMERICAN > 60; GLUCOSE,RANDOM 114 mg/dL (70-110); POTASSIUM 3.5 mmol/L (3.6-5.0); SODIUM 141 mmol/L (132-148)
--- NOTE | 2016-08-31 08:54 | RAD ---
HISTORY: r/o pneumonia COMPARISON: 08/20/2016 FINDINGS: LUNGS: There is airspace disease in both upper lobes. There is a left retrocardiac opacity. PLEURA: There is moderate left pleural effusion. There is probable small right pleural effusion. CARDIOVASCULAR: There is moderate cardiomegaly. Atherosclerotic aortic arch calcifications are present. . OSSEOUS STRUCTURES: No significant abnormalities. VISUALIZED UPPER ABDOMEN: Normal. OTHER FINDINGS: None. IMPRESSION: Suspect bilateral upper lobe pneumonia. Moderate left pleural effusion. Underlying left lower lobe pneumonia cannot be excluded. Follow-up is advised.
--- NOTE | 2016-08-31 09:10 | CARD ---
APPROVED REPORT EKG Measurement Heart [id number] <Conclusion> Atrial fibrillation with rapid ventricular response Right bundle branch block LAHB PRWP STTW changes No change
--- NOTE | 2016-08-31 09:38 | HP ---
This 81-year-old longterm resident was referred to [place] Emergency [facility]. He was found to be ta chypneic, tachycardic and have a fever of 101. He was referred into the Emergency Room from [facility]. Upon arrival in the Emergency Room, the patient was found to have a rectal temperatu re of 99, he was lethargic, tachypneic and tachycardic with a heart rate of 120. SOCIAL HISTORY: He is a nonsmoker, nondrinker, nondrug user. There is a living will. He is a DNR/D NI. ALLERGIES: No known allergies. PAST MEDICAL HISTORY: Altered mental status, sepsis, aspiration pneumonia, urinary tract infection, congestive heart failure, atrial fibrillation, several strokes, transient ischemic attack, dementia, BPH, left carotid disease, multiple coronary stents, a surgical vascular procedure in the left groin area a number of years ago. MEDICATIONS AT [facility]: Aldactone 25 mg via the G-tube twice a day, potassium chloride 20 mEq t wice a day via the G-tube, multivitamin daily, metoprolol tartrate 25 mg b.i.d. via the G-tube, Zestr il 5 mg b.i.d. via the G-tube, Lasix 40 mg daily via the G-tube, Pepcid 20 mg daily via the G-tube, C olace 100 mg via the G-tube, Ecotrin 325 mg via the G-tube daily, albuterol treatments q. 6 and Mucom yst treatments b.i.d. REVIEW OF SYSTEMS: Pertinent findings is that the patient is lethargic, tachypneic and tachycardic. He has diminished breath sounds at the bases. All 14 systems are reviewed. PHYSICAL EXAMINATION: VITAL SIGNS: He had a rectal temp of 99, his blood pressure was 117/80, his pulse rate was 110 and h is respiratory rate was 32. Oxygen saturation was reported at 95% on 3 liters nasal cannula. He use s continuous nasal oxygen at the longterm. GENERAL: He has a feeding PEG in place in the abdominal area with a significant history for aspirati on and dysphagia. HEART: An irregular S1, S2 rhythm with a grade II/ systolic murmur. LUNGS: Show diminished breath sounds with rhonchi. ABDOMEN: Soft, scaphoid, positive bowel sounds. G-tube in place; site is clean. EXTREMITIES: Show no evidence of edema. NEUROLOGIC: The patient has bilateral footdrop from multiple degenerative disk disease in the spine. LABORATORY DATA: Showed a WBC of 7.3, RBC 3.47, hemoglobin 10.8, hematocrit 34.1, platelet count 296 . Venous blood showed a lactate of 1.2. Chemistries were remarkable for BUN of 44 and the BNP is 12 ,500. Albumin is 2.9. This urinalysis showed yellow urine with small blood, moderate leukocyte ariana rase. He has an indwelling permanent So catheter with too numerous to count urine WBCs. Chest x-ray showed congestive changes. Formal report is pending. IMPRESSION: A longterm resident who is recently status post treatment for aspiration pneumonia w ith respiratory failure and congestive heart failure, atrial fibrillation, benign prostatic hypertrop hy, dementia with multiple stroke history, dehydration, systemic inflammatory response syndrome. He will be admitted. Maintain his supportive care level with a DNR/DNI status. Pancultured. Initia eitan on antibiotics with consult from infectious disease and pulmonary. All clinical findings have be en discussed at length with the nursing staff in the Emergency Room, the Emergency Room physician and the patient's . More than 50 minutes was spent. Cornelia Long MD cc: [id number] TT: 08/31/2016 09:38:00 dhaval
[2016-08-31] MEDS: Meropenem 1g/NS 100mL IVPB 100 ML IVPB SCH ×2 (10:15→21:31)
[2016-08-31] MEDS: Dextrose 5%/0.45% NS 1,000 ML IV SCH (10:15)
[2016-08-31] MEDS: Potassium Chloride 20 mEq/15 ml LIQ UD PO SCH ×2 (10:17→17:56)
[2016-08-31] MEDS: Vancomycin 1gm in NS 250ml 250 ML IVPB SCH (12:04)
[2016-08-31] MEDS: Nystatin 100,000 Units/gm Cream(15 gm) TOP SCH ×2 (13:09→17:54)
--- NOTE | 2016-08-31 14:46 | CON ---
DATE: 08/31/2016 The patient is seen in room 562, bed 1, earlier this morning. CHIEF COMPLAINT: Fever at the long term x 1 day duration. HISTORY OF PRESENT ILLNESS: This is a 81-year-old male from a long term with a history of dementi a, hypertension, cerebrovascular accident, coronary artery disease, atrial fibrillation, congestive h eart failure, prostate cancer, skin cancer, history of laminectomy with no known allergies, who was a dmitted with a diagnosis sepsis. Infectious disease consultation requested. REVIEW OF SYSTEMS: Reveals the patient had a temperature of 101.4 at the long term. The patient is unable to verbalize. He is short of breath. No abdominal pain reported. No diarrhea or constipa tion. No headaches or blurry vision. PAST MEDICAL HISTORY: Significant for dementia, hypertension, coronary artery disease, cerebrovascul ar accident, atrial fibrillation, hypertension, prostate cancer, skin cancer. PAST SURGICAL HISTORY: Significant for laminectomy. ALLERGIES: The patient has no known allergies. MEDICATIONS: At the long term include Aldactone, vitamins, Toprol, Zestril, Lasix and aspirin. PHYSICAL EXAMINATION: GENERAL: He is in bed, appearing weak and end-stage. VITAL SIGNS: Temperature of 99, heart rate of 112, respiratory rate of 22, blood pressure is 130/60. HEENT: Unremarkable. NECK: Supple. LUNGS: Have decreased breath sounds. HEART: Normal S1, S2. ABDOMEN: Soft, nontender. LABORATORY EXAMINATION: Reveals a white count of 5.5, hemoglobin of 10. Chemistries reveal the BUN of 41, creatinine of 0.6. Urinalysis is noted, too numerous to count WBCs, a few bacteria. He does have a PEG feeding tube and he also has a So catheter. He does have erythematous breakdown in the sacral area. The patient also had a chest x-ray which showed bilateral upper lobe pneumonia and und erlying left lower lobe pneumonia. Dr. Logn' history and physical examination is reviewed. The pat ient has a procalcitonin of 0.21. ASSESSMENT AND PLAN: This is a 81-year-old long term patient with dementia, hypertension, coronar y artery disease, cerebrovascular accident, atrial fibrillation, congestive heart failure, prostate c ancer, skin cancer, history of laminectomy with a percutaneous endoscopic gastrostomy tube, has a Fol ey catheter, now admitted with a temperature of 101.4 at the long term. Here low grade fevers, ta chycardia, dyspnea and positive urinalysis. 1. Sepsis with probable urine as the source with congestive heart failure. Must rule out healthcare -associated pneumonia. We will treat the patient with vancomycin and meropenem. The patient did hav e a normal procalcitonin which makes a bacterial pneumonia less likely; however, we will continue wit h the vancomycin and meropenem pending blood culture, urine cultures and clinical response. Will fol low closely with you. Bismark Bhatt MD cc: [id number] TT: 08/31/2016 14:46:16 Confirmation # [id number] Dictation # [id number] [email or web address]
--- NOTE | 2016-08-31 18:48 | CON ---
DATE: 08/31/2016 CHIEF COMPLAINT: Abnormal Nilay-Fernando with questionable type breathing and lethargy. 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 During my evaluation, he does have some rapid breathing, more of a Nilay-Fernando t ype. He was found to have a low potassium of 3.5 and elevated BUN. Also, he is mildly tachycardic a nd respiratory rate of 32. He has urinary tract infection, which last was treated for Klebsiella in his urinary tract infection. ID is on board. Currently, he is minimally verbal and he has dementia. CT head showed no acute intracranial abnormalities . Chest x-ray shows some moderate left ple ural effusions with small right pleural effusion and underlying left lower lobe pneumonia. PAST MEDICAL HISTORY: History of small infarcts in the left MCA distribution, especially in left pos terior frontoparietal lobe, which is embolic in nature; history of afib was on Coumadin in the past; history of bilateral foot drop, compression fractures, history of laminectomy, coronary artery diseas e status post multiple stents, history of inferior wall CA, history of healthcare-associated pneumoni a and urinary tract infections. REVIEW OF SYSTEMS: A 14-point review of systems is difficult to obtain due to patient's demented sta tus. MEDICATIONS: Reviewed via nurse's reconciliation sheet. SOCIAL HISTORY: No illicit drug use, smoking, or EtOH abuse. FAMILY HISTORY: Noncontributory. PHYSICAL EXAMINATION: VITAL SIGNS: Temperature of 97.2, pulse rate of 94, blood pressure 138/91, respiratory rate of 26, a nd oxygen saturation 99% via nasal cannula on 3 liters. GENERAL: The patient is lying in bed in no acute distress. He appears mildly lethargic . HEENT: Atraumatic, normocephalic. PERRLA. Extraocular muscles intact. NECK: Supple, no JVD, no adenopathy noted. LUNGS: Clear with decreased breath sounds bilaterally, mild scattered rhonchi. HEART: S1, S2, normal rate and rhythm. No murmurs, rubs, or gallops. ABDOMEN: Soft, nontender, nondistended. Bowel sounds are present. EXTREMITIES: No clubbing, no cyanosis. Peripheral pulses 2+ felt bilaterally. NEUROLOGIC: The patient is alert, oriented to self, minimally verbal, moves all extremities, has benson ateral foot drop, has increased tone throughout. Has atrophies in upper and lower extremity muscle g roups proximally and distally. Speech is hypophonic. MOTOR: Increased tone throughout. Toes are equivocal. SENSORY: Withdraws to localized noxious stimulus. DTRs are 1+ and absent at the knees and ankles. COORDINATION AND GAIT: Deferred for now. LABORATORY DATA: UA is positive for urinary tract infection, moderate leukocyte esterase. Sodium is 141, potassium 3.5, chloride of 103, carbon dioxide 32, BUN of 41, creatinine 0.6, random glucose of 114. ASSESSMENT AND PLAN: This is a 81-year-old man with a history of left lower lobe pneumonia, history of chronic atrial fibrillation who was on Coumadin in the past, history of coronary artery disease st atus post stents, history of spinal stenosis, history of bilateral foot drop, history of chronic comp ression fractures, history of benign prostatic hypertrophy, history of urinary tract infections with recent Klebsiella pneumoniae in the UTI, history of small left middle cerebral and frontoparietal inf arcts and history of metabolic derangements came in for further lethargy and an increased respiratory rate and Nilay-Fernando type breathing. I was called to evaluate. His lethargy seems most likely se condary to mostly a toxic metabolic encephalopathy from underlying pulmonary congestion from underlyi ng pneumonia, as well as underlying urinary tract infection that is still continuous from prior. In addition, he has had Nilay-Fernando breathing which we want to evaluate for a possible central cause. Therefore, I would recommend: 1. An MRI of the brain to assess for any pontine infarct. If positive, then we will make further ad justments in terms of his antiplatelet effect. Right now he is just on aspirin. If he has an infarc t we will add Plavix. Otherwise, we will continue with the same management. 2. Continue with pulmonary management in regards to his underlying pneumonia as well as ID's help in terms of antibiotic therapy for his underlying urinary tract infection and underlying pneumonia. 3. Monitor his electrolytes and correct accordingly. 4. Keep his systolic blood pressure between 120-130 mmHg. 5. Continue with present GI and DVT prophylaxis. At this time, continue with current present medica l management. Thank you for this consult. Colin Mcclain MD cc: [id number] TT: 08/31/2016 18:47:54 Confirmation # [id number] Dictation # [id number] mn 08/31/2016 20:16:22
[2016-09-01] MEDS: Albuterol-Ipratrop 3 mg / 0.5 (3 ml) UD IH SCH ×4 (02:02→21:27)
[2016-09-01 06:40] LABS: HEMATOCRIT 33.8 % (42.0-52.0); MEAN CELL VOLUME 98.5 fL (80.0-105.0); MEAN CORPUSCULAR HEMOGLOBIN 31.2 pg (25.0-35.0); MEAN CORPUSCULAR HGB CONC 31.7 g/dl (31.0-37.0); MEAN PLATELET VOLUME 9.9 fl (7.0-11.0); RED CELL DISTRIBUTION WIDTH 16.2 % (11.5-14.5); WHITE BLOOD COUNT 5.5 10^3/ul (4.5-11.0)
[2016-09-01 06:50] LABS: ALB/GLOB RATIO 0.9 (1.1-1.8); ALKALINE PHOSPHATASE 59 U/L (38-133); ALT/SGPT 38 U/L (7-56); AST/SGOT 28 U/L (15-59); BILIRUBIN,TOTAL 0.6 mg/dL (0.2-1.3); BLOOD UREA NITROGEN 39 mg/dL (7-21); CALCIUM 8.1 mg/dL (8.4-10.5); CARBON DIOXIDE 31 mmol/L (21-33); CHLORIDE 103 mmol/L (98-107); GFR AFRICAN-AMERICAN > 60; GLUCOSE,RANDOM 144 mg/dL (70-110); POTASSIUM 3.6 mmol/L (3.6-5.0); SODIUM 139 mmol/L (132-148); TOTAL PROTEIN 5.8 g/dL (5.8-8.3)
[2016-09-01] MEDS: Acetylcysteine 20% Inhal Soln (4ml) IH SCH ×2 (07:17→21:27)
--- NOTE | 2016-09-01 08:37 | PN ---
DATE: 09/01/2016 PULMONARY NOTE SUBJECTIVE: The patient appears very comfortable this morning. He is not short of breath at rest. He is awake and alert. PHYSICAL EXAMINATION: VITAL SIGNS: Temperature is 98.6. The pulse is approximately 88, respiratory rate 18/20. Last blood pressure recorded 139/89. Oxygen saturation on nasal cannula is 99%. HEENT: Normocephalic, atraumatic. No JVD. CARDIOVASCULAR: Positive S1, S2. No S3. LUNGS: Decreased breath sounds at the bases. Minimal/less rhonchi. No wheezing. EXTREMITIES: No clubbing, cyanosis, or edema. Calves are nontender to palpation. GASTROINTESTINAL: Abdomen is soft, nontender, nondistended. Bowel sounds are positive. There is a PEG tube in place. SKIN: No acute rash. NEUROLOGIC: Limited at the present time. IMPRESSION: 1. Sepsis syndrome. 2. Rule out urinary tract infection. 3. Chronic aspiration. 4. Mild bronchospasm. 5. Anemia. 6. Rule out congestive heart failure. PLAN: The patient appears very comfortable this morning. He is not short of breath at rest. He is awake and alert. I did discuss the case with the night nurse at length. The night nurse stated that the patient had a very good night. Interesting to note, the patient does have periods of rapid respirations - which resolve on their own. I do question whether these are Nilay-Fernando respirations - secondary to the multiple strokes. Neurology evaluation is noted and appreciated. On physical exam, his bronchospasm is minimal at this point in time. I will continue with the current nebulizer treatments and aspiration precautions. I would continue with the antibiotic coverage, as per infectious disease. Temperatures have now fully resolved. There is no leukocytosis. Clinical status of the patient is certainly improved - compared to the initial presentation. However, again, the overall status/ prognosis of this elderly patient remains poor. All are aware. I will discuss the above with Dr. Long this morning. Audi Denis MD cc: [id number] TT: 09/01/2016 08:36:32 Confirmation # [id number] Dictation # [id number] jn DIDI
--- NOTE | 2016-09-01 10:00 | PN ---
DATE: 09/01/2016 A 81-year-old male with history of altered mental status, fever, and tachypnea, and tachycardia. The patient, this morning, has a temp of 97.6, his pulse is 85, his blood pressure has been reported at 165/90. His oxygen saturation is being reported that 100% on 3 L of nasal oxygen. His respirator y rate is 18. This morning the patient is awake. He does have minimal response to verbal discussion, acknowledges good morning, and he says that he is feeling okay. LUNGS: Show bilateral rhonchi. HEART: Has an irregular S1, S2 rhythm. ABDOMEN: Soft. Feeding PEG is in place with no evidence of infection or erythema at any site. EXTREMITIES: Show no evidence of edema. There is bilateral foot drop from prior neurological change s from degenerative disk disease. The patient has a history of rapid breathing. Neurological and pulmonary evaluations are in process. An MRI has been requested to rule out the possibility of a central lesion causing a central etiology to his altered breathing pattern. His chest x-ray showed effusions. He is currently on meropenem and vancomycin; being followed by infectious disease. Microbiological s tudies to this point show blood cultures are negative at 24 hours. The urine culture is pending. His laboratory data this morning is showing normal electrolytes. His potassium is now 3.6. His BUN has come down to 39 with gentle hydration, and his creatinine is 0.7. His LFTs are normal. His BNP is now 8330. His procalcitonin is negative. His CBC shows a WBC of 5.5, RBC 3.43, hemoglobin 10.7, hematocrit 33.8, and platelet count 277. He continues on his Jevity feedings and is receiving supportive care. He has a living will. He is a DNR/DNI. This patient has a long-storied history of multiple cerebral infarcts, carotid disease, mu ltiple coronary stents, BPH, sepsis, urinary tract infections, aspiration pneumonia, degenerative art hritis of the spine with bilateral foot drop. He is a longterm resident at [facility]. Will await the results of the cultures. Continue the current antibiotics. Again, awaiting the MRI s tudy to see if there is a central etiology to his breathing pattern. Cornelia Long MD cc: [id number] TT: 09/01/2016 09:59:43 Confirmation # [id number] Dictation # [id number] jn
[2016-09-01] MEDS: Meropenem 1g/NS 100mL IVPB 100 ML IVPB SCH ×2 (10:08→21:35)
[2016-09-01] MEDS: Potassium Chloride 20 mEq/15 ml LIQ UD PO SCH ×2 (10:08→17:15)
[2016-09-01] MEDS: Nystatin 100,000 Units/gm Cream(15 gm) TOP SCH ×3 (10:10→17:16)
[2016-09-01] MEDS: Vancomycin 1gm in NS 250ml 250 ML IVPB SCH (12:27)
--- NOTE | 2016-09-01 14:41 | MRI ---
PROCEDURE: MRI BRAIN WITHOUT CONTRAST HISTORY: altered mental status COMPARISON: 04/27/2015 TECHNIQUE: Multiplanar, multisequence MR images of the brain were obtained without intravenous contrast enhancement. FINDINGS: HEMORRHAGE: None DWI: No evidence of an acute or early subacute infarction. BRAIN PARENCHYMA: No mass effect or edema. Severe chronic microvascular changes are seen in the periventricular white matter. Large confluent areas of abnormal signal intensity are seen. The findings are unchanged. There is also atrophy with ventricular dilatation VENTRICLES: Unremarkable. No hydrocephalus. CRANIUM: Unremarkable. ORBITS: Grossly unremarkable. PARANASAL SINUSES/MASTOIDS: Clear VASCULAR SYSTEM: Skull base flow voids intact. OTHER FINDINGS: None. IMPRESSION: No acute intracranial findings. Severe chronic microvascular changes
--- NOTE | 2016-09-01 19:35 | PN ---
DATE: 09/01/2016 The patient seen earlier in 562, bed 1 this morning. No fevers, no chills. Mental status is unchang ed. On exam temperature is 98, blood pressure is 130/80, respiratory rate of 20, heart rate of 70. EXAMINATION OF HENT: Unremarkable. NECK: Supple. LUNGS: Have decreased breath sounds. HEART EXAMINATION: Normal S1, S2. ABDOMINAL EXAMINATION: Soft. LABORATORY EXAMINATION: Reveals the urine culture has a gram-negative jose. The blood cultures are n o growth. White count is 5.5, hemoglobin of 10, BUN of 39, creatinine of 0.7. Procalcitonin 0.21. ASSESSMENT AND PLAN: A 81-year-old male admitted from a shelter with dementia, hypertension, co ronary artery disease, and cerebrovascular accident, atrial fibrillation, congestive heart failure, p rostate cancer, skin cancer, laminectomy, PEG tube, So catheter. Admitted with a fever from a [facility], low grade, and now has sepsis with gram-negative jose in the urine as the source, with rosana estive heart failure, on vancomycin and meropenem. Will discontinue the vancomycin, and I will check on the identification and sensitivity of the gram-negative jose in urine. Continue meropenem. Will follow with you. Bismark Bhatt MD cc: [id number] TT: 09/01/2016 19:34:57 Confirmation # [id number] Dictation # [id number] stacey
[2016-09-02] MEDS: Albuterol-Ipratrop 3 mg / 0.5 (3 ml) UD IH SCH ×2 (02:03→08:24)
[2016-09-02 06:38] LABS: BLOOD UREA NITROGEN 35 mg/dL (7-21); CALCIUM 7.9 mg/dL (8.4-10.5); CARBON DIOXIDE 30 mmol/L (21-33); CHLORIDE 105 mmol/L (98-107); GFR AFRICAN-AMERICAN > 60; GLUCOSE,RANDOM 162 mg/dL (70-110); POTASSIUM 3.8 mmol/L (3.6-5.0); SODIUM 139 mmol/L (132-148)
[2016-09-02 07:25] VITALS: BP 126/86; PULSE 87; RESP 16; TEMP 97.5; O2SAT 99
[2016-09-02] MEDS: Acetylcysteine 20% Inhal Soln (4ml) IH SCH (08:24)
--- NOTE | 2016-09-02 08:41 | PN ---
DATE: 09/02/2016 SUBJECTIVE: The patient appears comfortable this morning. He is not short of breath at rest. OBJECTIVE: VITAL SIGNS: Temperature is 97.5, pulse 87, respirations 16, blood pressure 126 /86. Oxygen saturation on nasal cannula is 99%. HEENT: Normocephalic, atraumatic. No JVD. CARDIOVASCULAR: Positive S1, S2. No S3. LUNGS: Decreased breath sounds at the bases. Minimal/less rhonchi. No wheezing. EXTREMITIES: No clubbing, cyanosis, or edema. Calves are nontender to palpation. GASTROINTESTINAL: Abdomen is soft, nontender, nondistended. Bowel sounds are positive. There is a PEG tube in place. SKIN: No acute rash. NEUROLOGIC: Exam limited at the present time. IMPRESSION: 1. Sepsis syndrome. 2. Probable urinary tract infection. 3. Chronic aspiration. 4. Mild bronchospasm. 5. Anemia. 6. Rule out congestive heart failure. PLAN: The patient appears very comfortable this morning. He is not short of breath at rest. He appears awake and alert. I did discuss the case with the night nurse at length. The night nurse stated that the patient had a very good night. On physical exam, there is certainly less bronchospasm noted. In addition, the oxygen saturation on nasal cannula is now 99-100%. I will continue with the current nebulizer treatments and aspiration precautions for now. I would continue with the antibiotic coverage as per infectious disease. Temperatures have fully resolved. There is no leukocytosis. Urine culture is growing gram-negative rods. Clinical status of the patient is certainly improved - compared to the initial presentation. However, overall, the patient is not doing well, as there have been multiple hospital admissions over the past 2 months. Overall status/outlook of this patient does remain poor. He is currently a DNR/DNI status. I will discuss the entire case with Dr. Long later this morning. As the hospitalizations become more frequent, and the patient's overall health continues to decline, some consideration for hospice placement should be entertained. Audi Denis MD cc: [id number] TT: 09/02/2016 08:40:59 Confirmation # [id number] Dictation # [id number] mn [email or web address]
--- NOTE | 2016-09-02 09:01 | PN ---
DATE: 09/01/2016 The patient is in bed in 562, bed 1, was seen earlier this morning. PHYSICAL EXAMINATION: VITAL SIGNS: The patient's temperature is 97 and blood pressure is 150/60, respiratory rate of ____, heart rate of ____. HEENT: Unremarkable. NECK: Supple. LUNGS: Decreased breath sounds. HEART: Normal S1, S2. ABDOMEN: Soft, nontender. LABORATORY DATA: Reveals the white count is noted and the cultures are gram-negative jose in the urin e. Blood cultures are negative and white count in the CBC is 5.5. Urinalysis is too numerous to cou nt and patient is on meropenem and vancomycin. ASSESSMENT AND PLAN: This is a 81-year-old correction patient with dementia, hypertension, coronar y artery disease, cerebrovascular accident, atrial fibrillation, congestive heart failure, prostate c ancer, skin cancer, history of laminectomy, percutaneous endoscopic gastrostomy tube and a So cath eter. Admitted with sepsis with gram-negative jose in the urine as the source, congestive heart failu re. We will discontinue the vancomycin. Continue the meropenem pending identification and sensitivi ty of the gram-negative jose in the urine. The patient did have a procalcitonin of 0.21 and negative blood cultures. Dr. Long' note is reviewed. We will follow closely with you. Bismark Bhatt MD cc: 350 TT: 09/01/2016 14:59:37 Confirmation # [id number] Dictation # [id number] sn
[2016-09-02] MEDS: Potassium Chloride 20 mEq/15 ml LIQ UD PO SCH (10:03)
[2016-09-02] MEDS: Meropenem 1g/NS 100mL IVPB 100 ML IVPB SCH (10:05)
[2016-09-02] MEDS: Nystatin 100,000 Units/gm Cream(15 gm) TOP SCH (10:05)
--- NOTE | 2016-09-02 11:05 | RAD ---
HISTORY: Pleural effusions. Technique: Single view portable semi erect @ 07:50. COMPARISON: Multiple serial examinations preceding the most recent study: August 30, 2016. FINDINGS: LUNGS: Interval improvement in multifocal airspace disease likely pulmonary edema. PLEURA: Stable left pleural effusion. CARDIOVASCULAR: Cardiomegaly/improving CHF OSSEOUS STRUCTURES: No significant abnormalities. VISUALIZED UPPER ABDOMEN: Normal. OTHER FINDINGS: None. IMPRESSION: Improving congestive heart failure.
--- NOTE | 2016-09-02 15:39 | PN ---
DATE: 09/02/2016 The patient is seen in bed early this morning in room 562, bed 1. No fevers, no chills. PHYSICAL EXAMINATION: VITAL SIGNS: Temperature is 97, blood pressure is 120/80, respiratory rate of 16. HEENT: Unremarkable. NECK: Supple. LUNGS: Have decreased breath sounds. HEART: Normal S1, S2. ABDOMEN: Soft. LABORATORY EXAMINATION: Reveals the patient's urine culture has pseudomonas sensitive to Cipro. Rev iew of the sensitivity is noted. Case discussed with Dr. Long. Chest x-ray is noted. ASSESSMENT AND PLAN: A 81-year-old who is admitted from a halfway with dementia, hypertension, coronary artery disease, cerebrovascular accident, atrial fibrillation, congestive heart failure, pro state cancer, skin cancer, laminectomy, percutaneous endoscopic gastrostomy tube, So catheter with a fever and sepsis with pseudomonas, urine as the source. Will complete with p.o. Cipro therapy as discussed with Dr. Long. We will follow with you. Bismark Bhatt MD cc: [id number] TT: 09/02/2016 15:39:00 Confirmation # [id number] Dictation # [id number] en
--- NOTE | 2016-09-11 10:14 | DS ---
A 81-year-old [facility] resident was treated at [facility] for aspiration pneumoni a and dehydration. The patient has a history of multi-infarct dementia, carotid disease, coronary di sease with several coronary stents, bilateral footdrop secondary to spinal stenosis and multiple disk disease of the spine. He has underlying atrial fibrillation as well. He has a living will. He is a DNR/DNI. He was treated in the hospital by infectious disease, neurology, and pulmonary. His ches t x-ray showed improvement. There was also some degree of mild failure on the chest x-ray. The [place] ent will be returning back to [facility] maintaining his DNR/DNI status. He has a feedin g tube because of dysphagia and he will be using Aldactone 25 mg b.i.d., potassium chloride 20 mEq b. i.d., Lasix 40 mg daily, Pepcid 20 mg daily, Colace 100 mg daily, Ecotrin 325 mg daily, albuterol babar atments q. 6 hours, Mucomyst treatments b.i.d., Lopressor 25 mg b.i.d. and he will be completing a co urse of Cipro 500 mg b.i.d. for completion of his antibiotic treatment. He had pseudomonas in the ur ine. So catheter has been changed while in the hospital. He has a permanent indwelling So cat heter secondary to benign prostatic hypertrophy and urinary retention. He will be followed as an out patient. Cornelia Long MD cc: [id number] TT: 09/11/2016 10:13:25 [email or web address]
== END 2016-09-02 13:45 | DRG 871 ==
LOC: ED 14:47 → ERH 17:01 → 5RNO 19:46
PROVIDERS: ADMIT Internal Medicine; ATTEND Internal Medicine
PROC: 3E0G76Z Introduction of Nutritional Substance into Upper GI, Via Natural or Artificial Opening (ICD-10-PCS; principal; 2016-08-30)
PROC: 3E0F7GC Introduction of Other Therapeutic Substance into Respiratory Tract, Via Natural or Artificial Opening (ICD-10-PCS; 2016-08-30)
DX: A41.9 Sepsis, unspecified organism (principal); N39.0 Urinary tract infection, site not specified; G92 Toxic encephalopathy; J18.9 Pneumonia, unspecified organism; I27.2 Other secondary pulmonary hypertension; I11.0 Hypertensive heart disease with heart failure; I50.9 Heart failure, unspecified; F03.90 Unspecified dementia, unspecified severity, without behavioral disturbance, psychotic disturbance, mood disturbance, and anxiety; R13.10 Dysphagia, unspecified; I48.2 Chronic atrial fibrillation; N40.0 Benign prostatic hyperplasia without lower urinary tract symptoms; B96.5 Pseudomonas (aeruginosa) (mallei) (pseudomallei) as the cause of diseases classified elsewhere; Z66 Do not resuscitate; I25.10 Atherosclerotic heart disease of native coronary artery without angina pectoris; D64.9 Anemia, unspecified; M21.371 Foot drop, right foot; M21.372 Foot drop, left foot; M47.9 Spondylosis, unspecified; J98.01 Acute bronchospasm; I25.2 Old myocardial infarction; Z93.1 Gastrostomy status; Z95.5 Presence of coronary angioplasty implant and graft; Z86.73 Personal history of transient ischemic attack (TIA), and cerebral infarction without residual deficits; Z85.828 Personal history of other malignant neoplasm of skin; Z85.46 Personal history of malignant neoplasm of prostate

== ENCOUNTER 2016-11-05 12:54 | Inpatient (IN) | payer MEDICARE, OTHER ==
[2016-11-05 12:54] VITALS: PULSE 52
--- NOTE | 2016-11-05 13:04 | ED PDOC ---
Arrival/HPI - General Time Seen by Provider: 11/05/16 12:56 Historian: [facility] - History of Present Illness Narrative History of Present Illness (Text): 11/05/16 12:59 Patient is a 81 yo male with past medical history of dementia, arterial insufficiency in lower extremities, bilateral heel ulcers, sent from [facility] with history of positive right heel wound culture that reportedly represents VRE. 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 No history of acute change in mental status , no history of recent new trauma, no fevers or nausea or vomiting reported. Time/Duration: Prior to Arrival Symptom Onset: Gradual Past Medical History - Infectious Disease Hx of Infectious Diseases: None - Tetanus Immunization Tetanus Immunization: Unknown - Cardiac Hx Cardiac Arrhythmia: Yes Hx Congestive Heart Failure: Yes Hx Hypertension: Yes Hx Peripheral Vascular Disease: Yes Other/Comment: ptca with stents x8, groin bleed post 1 ptca - Pulmonary Hx Bronchitis: Yes Hx Pneumonia: Yes - Neurological Hx Neurological Disorder: Yes HX Cerebrovascular Accident: Yes Hx Dementia: Yes Hx Transient Ischemic Attacks (TIA): Yes - HEENT Hx HEENT Disorder: No - Renal Hx Renal Disorder: No - Endocrine/Metabolic Hx Endocrine Disorders: No - Hematological/Oncological Hx Blood Disorders: Yes Hx Anemia: Yes (blood transfusion) Hx Cancer: Yes (prostate,skin) - Integumentary Hx Dermatological Disorder: Yes Other/Comment: buttocks bright red skin no openings, b/l groin bright red skin, 2cm x 3.5cm r heel dry brown wound, 1cm brown dry skin and dry flakey skin to left heel, ble multiple skin discolorations and dry flakey skin, red raised rash to chest neck shoulders and arms, multiple age spots to b/l arms, red scabs to face and light skin discoloration to r jew, skin red on chest under chin - Musculoskeletal/Rheumatological Hx Falls: Yes (past) - Gastrointestinal Hx Gastrointestinal Disorders: Yes (g tube 06/30/2016) Hx Gastroesophageal Reflux: Yes Other/Comment: incontinent of stool - Genitourinary/Gynecological Hx Genitourinary Disorders: Yes Hx Hematuria: Yes Hx Incontinence: Yes Hx Prostate Problems: Yes (bph) Hx Urinary Tract Infection: Yes - Psychiatric Hx Anxiety: Yes Hx Depression: Yes Hx Emotional Abuse: No Hx Physical Abuse: No Hx Substance Use: No - Past Surgical History Past Surgical History: Non-Contributing - Surgical History Hx Cardiac Catheterization: Yes (with stents) Hx Coronary Stent: Yes Other/Comment: tonsilslectomy - Anesthesia Hx Anesthesia: Yes Hx Anesthesia Reactions: No Hx Malignant Hyperthermia: No - Suicidal Assessment Feels Threatened In Home Enviroment: No Family/Social History Family/Social History: Unknown Family HX Smoking Status: Unknown If Ever Smoked Hx Alcohol Use: No Hx Substance Use: No Hx Substance Use Treatment: No Allergies/Home Meds Allergies/Adverse Reactions: Allergies No Known Allergies Allergy (Verified 08/15/16 17:38) Home Medications: Home Meds Medication Instructions Recorded Confirmed Aspirin 325 mg GT DAILY 08/15/16 11/05/16 Docusate Sodium 100 mg GT DAILY 08/15/16 11/05/16 Famotidine [Pepcid] 20 mg GT DAILY 08/15/16 11/05/16 Lisinopril [Zestril] 5 mg GT BID 08/15/16 11/05/16 Multivitamin [Men's Multi-Vitamin] 1 mg GT DAILY 08/15/16 11/05/16 Furosemide [Lasix] 40 mg GT DAILY 08/30/16 11/05/16 Spironolactone [Aldactone] 25 mg GT BID 08/30/16 11/05/16 Potassium Chloride [Potassium 20 meq GT BID 11/05/16 11/05/16 Chloride Oral Soln] Review of Systems - Review of Systems Systems not reviewed;Unavailable: Dementia Constitutional: absent: Fevers Respiratory: absent: SOB Cardiovascular: absent: Chest Pain Musculoskeletal: Other (leg pain reported) Physical Exam Vital Signs Reviewed: Yes Vital Signs Temp Pulse Resp BP Pulse Ox 11/05/16 16:30 82 17 146/79 98 11/05/16 13:15 98.1 F 89 18 142/77 99 Temperature: Afebrile Mental Status: Positive for: Confused - Systems Exam Head: Present: Atraumatic Conjunctiva: No: Injected Mouth: Present: Dry Pharnyx: No: ERYTHEMA Neck: Present: Normal Range of Motion. No: Meningeal Signs Respiratory/Chest: Present: Clear to Auscultation. No: Respiratory Distress Cardiovascular: Present: Regular Rate and Rhythm, Murmurs Abdomen: No: Tenderness Back: No: CVA Tenderness Upper Extremity: No: Cyanosis Lower Extremity: Present: Other (bilateral heel ulcers reported, patient with dressing, padding around both feet, skin cool, no purulent drainage noted) Neurological: Present: Motor Func Grossly Intact, Normal Sensory Function Skin: Present: Other (heel ulcers, bilateral reported) Psychiatric: Present: Alert. No: Normal Insight, Normal Concentration Medical Decision Making ED Course and Treatment: Differential Diagnosis included but are not limited to: osteomyelitis, cellulitis, ulcer Patient's recent wound culture reviewed with PMD and fax report reviewed: Wound Culture Right Heel was reviewed which showed Orgasnism 1. Enterobacter Cloacae Organism 2. Pseudomonas Aeruginosa Organism 3. Enterococcus Faecalis (VRE) Sensitivity of these organisms was reviewed. Progress Notes: Patient is afebrile, cardiovascularly stable. Heel wounds dressings were removed and ulcers examined by PMD with Dr. Fernandez. Will consult ID regarding antibiotic usage given multiple organisms and noted resistance, patient isolation precautions ordered. Patient admitted for further treatment and evaluation. 11/06/16 13:31 - RAD Interpretation Radiology Orders: 11/05/16 13:07 CHEST ONE VIEW [RAD] Stat 11/05/16 13:08 HEEL RIGHT [RAD] Stat - Medication Orders Current Medication Orders: Acetylcysteine (Acetylcysteine 20%) 4 ml IH BIDRESP [facility] Last Admin: 11/06/16 07:16 Dose: 4 ml Albuterol/Ipratropium (Duoneb 3 Mg/0.5 Mg (3 Ml) Ud) 3 ml IH [id number] [facility] Last Admin: 11/06/16 07:16 Dose: 3 ml Aspirin (Aspirin) 325 mg GT DAILY [facility] Last Admin: 11/06/16 10:00 Dose: 325 mg Docusate Sodium (Colace Liquid) 100 mg GT DAILY [facility] Last Admin: 11/06/16 10:00 Dose: 100 mg Famotidine (Pepcid) 20 mg GT DAILY [facility] Last Admin: 11/06/16 10:00 Dose: 20 mg Lisinopril (Zestril) 5 mg GT BID [facility] Last Admin: 11/06/16 10:02 Dose: 5 mg Metoprolol Tartrate (Lopressor) 25 mg GT BID [facility] Last Admin: 11/06/16 10:02 Dose: 25 mg Multivitamins/Vitamin C (Multi-Delyn Liquid) 15 ml PO DAILY [facility] Last Admin: 11/06/16 10:00 Dose: 15 ml Oxychlorosene Sodium (Clorpactin Wcs-90) 2 gm TOP Q12 [facility] Last Admin: 11/06/16 10:01 Dose: Silver Sulfadiazine (Silvadene 1% 20 Gm) 1 ea TOP BID [facility] Last Admin: 11/06/16 10:02 Dose: Discontinued Medications Pneumococcal Polyvalent Vaccine (Pneumovax 23 Vaccine) 0.5 ml IM .ONCE ONE Stop: 11/05/16 23:00 Povidone Iodine (Betadine 10% Topical Soln) 0 ml TOP ONCE ONE Stop: 11/05/16 18:47 Disposition/Present on Arrival - Present on Arrival Any Indicators Present on Arrival: Yes History of DVT/PE: No History of Uncontrolled Diabetes: No Urinary Catheter: Yes (inserted in ed) History Surgical Site Infection Following: None - Disposition Have Diagnosis and Disposition been Completed?: Yes Diagnosis: Heel ulceration, Cellulitis Disposition: HOSPITALIZED Disposition Time: 14:00 Patient Plan: Admission Patient Problems: Current Active Problems Problem Status Onset Cellulitis Acute Heel ulceration Acute Condition: FAIR
[2016-11-05 13:06] VITALS: BMI 24.3
--- NOTE | 2016-11-05 15:14 | RAD ---
PROCEDURE: Right Foot Radiographs. HISTORY: cellulitis, risk of osteomyelitis COMPARISON: None. FINDINGS: BONES: There is bony demineralization throughout the foot. There is no obvious bony destruction to suggest osteomyelitis. JOINTS: Normal. SOFT TISSUES: Normal. OTHER FINDINGS: None. IMPRESSION: There is bony demineralization throughout the foot. There is no obvious bony destruction to suggest osteomyelitis.
--- NOTE | 2016-11-05 15:15 | RAD ---
PROCEDURE: CHEST RADIOGRAPH, 1 VIEW HISTORY: weakness, cellulitis COMPARISON: 09/02/2016 FINDINGS: LUNGS: Clear. PLEURA: No pneumothorax or pleural fluid seen. CARDIOVASCULAR: Normal. OSSEOUS STRUCTURES: No significant abnormalities. VISUALIZED UPPER ABDOMEN: Normal. OTHER FINDINGS: None. IMPRESSION: No active disease.
[2016-11-05 16:45] LABS: ADD MANUAL DIFF? NO
[2016-11-05 16:57] LABS: BASO # 0.01 K/mm3 (0.0-2.0); BASO % 0.1 % (0.0-3.0); EOS # 0.1 (0.0-0.7); EOS % 1.6 % (1.5-5.0); GRAN # 6.56 (1.4-6.5); GRAN % 80.8 % (50.0-68.0); HEMATOCRIT 34.2 % (42.0-52.0); LYMPH # 0.9 (1.2-3.4); LYMPH % 10.5 % (22.0-35.0); MEAN CELL VOLUME 99.4 fL (80.0-105.0); MEAN CORPUSCULAR HGB CONC 32.2 g/dl (31.0-37.0); MEAN PLATELET VOLUME 9.6 fl (7.0-11.0); MONO # 0.6 (0.1-0.6); PLATELET COUNT 262 10^3/uL (120.0-450.0); RED CELL DISTRIBUTION WIDTH 16.6 % (11.5-14.5); WHITE BLOOD COUNT 8.1 10^3/ul (4.5-11.0)
[2016-11-05 16:59] LABS: ALKALINE PHOSPHATASE 67 U/L (38-133); ALT/SGPT 29 U/L (7-56); AST/SGOT 38 U/L (15-59); BILIRUBIN,TOTAL 0.8 mg/dL (0.2-1.3); BLOOD UREA NITROGEN 52 mg/dL (7-21); CALCIUM 9.3 mg/dL (8.4-10.5); CARBON DIOXIDE 31 mmol/L (21-33); CHLORIDE 105 mmol/L (98-107); GFR AFRICAN-AMERICAN > 60; GLUCOSE,RANDOM 95 mg/dL (70-110); POTASSIUM 4.8 mmol/L (3.6-5.0); SODIUM 143 mmol/L (132-148); TOTAL PROTEIN 7.5 g/dL (5.8-8.3)
[2016-11-05 17:13] LABS: VENOUS BLOOD GAS BASE EXCESS 8.2 mmol/L (0.0-2.0); VENOUS BLOOD PH 7.38 (7.32-7.43)
[2016-11-05 17:18] LABS: INR 1.09 (0.93-1.08); PARTIAL THROMBOPLASTIN TIME 30.4 Seconds (23.7-30.8)
[2016-11-05] MEDS: Silver Sulfadiazine 1% Cream (20 gm) TOP SCH (17:30)
[2016-11-05] MEDS ORDERED: Povidone Iodine Topical 10% Sol TOP ONE (18:46)
--- NOTE | 2016-11-05 18:54 | CP.PCM.CON ---
<Krys العلي - Last Filed: 11/05/16 18:45> History of Present Illness - History of Present Illness History of Present Illness: General Surgery - DR. Fernandez 81yo M w/ extensive medical hx including Afib, PAD, Spinal stenosis w/ b/l foot drop, G-tube, recent Pneumonia and UTI, Osteomyelitis of the L foot, sent back from [place] d/t positive wound cultures for VRE. Surgery is consulted for the Heel ulcers. Pt is non-verbal and unable to offer any complaints. The heel wounds were examined at bedside with Dr. Long and Dr. Fernandez. X-rays of the heel were done in the ED which showed no evidence of osteomyelitis. Surgery reccomendations include Silvadene cream or Mupiricin ointment to the heels and a triple phase bone scan to R/O Osteomyelitis. Review of Systems - Review of Systems All systems: reviewed and no additional remarkable complaints except (as per HPI ) Past Patient History - Infectious Disease Hx of Infectious Diseases: None - Tetanus Immunizations Tetanus Immunization: Unknown - Past Medical History & Family History Past Medical History?: Yes - Past Social History Smoking Status: Unknown If Ever Smoked - CARDIAC Hx Cardia Arrhythmia: Yes Hx Congestive Heart Failure: Yes Hx Hypertension: Yes Hx Peripheral Vascular Disease: Yes Other/Comment: ptca with stents x8, groin bleed post 1 ptca - PULMONARY Hx Bronchitis: Yes Hx Pneumonia: Yes - NEUROLOGICAL Hx Neurological Disorder: Yes HX Cerebrovascular Accident: Yes Hx Dementia: Yes Hx Transient Ischemic Attacks (TIA): Yes - HEENT Hx HEENT Problems: No - RENAL Hx Chronic Kidney Disease: No - ENDOCRINE/METABOLIC Hx Endocrine Disorders: No - HEMATOLOGICAL/ONCOLOGICAL Hx Blood Disorders: Yes Hx Anemia: Yes (blood transfusion) Hx Cancer: Yes (prostate,skin) - INTEGUMENTARY Hx Dermatological Problems: Yes Other/Comment: buttocks bright red skin no openings, b/l groin bright red skin, 2cm x 3.5cm r heel dry brown wound, 1cm brown dry skin and dry flakey skin to left heel, ble multiple skin discolorations and dry flakey skin, red raised rash to chest neck shoulders and arms, multiple age spots to b/l arms, red scabs to face and light skin discoloration to r spiritism, skin red on chest under chin - MUSCULOSKELETAL/RHEUMATOLOGICAL Hx Falls: Yes (past) - GASTROINTESTINAL Hx Gastrointestinal Disorders: Yes (g tube 06/30/2016) Hx Gastroesophageal Reflux: Yes Other/Comment: incontinent of stool - GENITOURINARY/GYNECOLOGICAL Hx Genitourinary Disorders: Yes Hx Hematuria: Yes Hx Incontinence: Yes Hx Prostate Problems: Yes (bph) Hx Urinary Tract Infection: Yes - PSYCHIATRIC Hx Anxiety: Yes Hx Depression: Yes Hx Emotional Abuse: No Hx Physical Abuse: No Hx Substance Use: No - SURGICAL HISTORY Hx Cardiac Catheterization: Yes (with stents) Hx Coronary Stent: Yes Other/Comment: tonsilslectomy - ANESTHESIA Hx Anesthesia: Yes Hx Anesthesia Reactions: No Hx Malignant Hyperthermia: No Meds Allergies/Adverse Reactions: Allergies Allergy/AdvReac Type Severity Reaction Status Date / Time No Known Allergies Allergy Verified 08/15/16 17:38 - Medications Medications: Current Medications Acetylcysteine (Acetylcysteine 20%) 4 ml IH BIDRESP [facility] Albuterol/Ipratropium (Duoneb 3 Mg/0.5 Mg (3 Ml) Ud) 3 ml IH [id number] [facility] Aspirin (Aspirin) 325 mg GT DAILY [facility] Docusate Sodium (Colace Liquid) 100 mg GT DAILY [facility] Famotidine (Pepcid) 20 mg GT DAILY [facility] Lisinopril (Zestril) 5 mg GT BID [facility] Metoprolol Tartrate (Lopressor) 25 mg GT BID [facility] Multivitamins/Vitamin C (Multi-Delyn Liquid) 15 ml PO DAILY [facility] Silver Sulfadiazine (Silvadene 1% 20 Gm) 1 ea TOP BID [facility] Last Admin: 11/05/16 17:30 Dose: 1 gm Physical Exam - Constitutional Appears: No Acute Distress - Head Exam Head Exam: ATRAUMATIC, NORMAL INSPECTION, NORMOCEPHALIC - Eye Exam Eye Exam: Normal appearance - Respiratory Exam Respiratory Exam: NORMAL BREATHING PATTERN. absent: Respiratory Distress - Extremities Exam Additional comments: B/L necrotic heel ulcers, dry, no erythema of the foot, no areas of tenderness appreciated, poor pulses - Neurological Exam Neurological exam: Alert - Skin Skin Exam: Dry, Intact Results - Vital Signs Recent Vital Signs: Last Vital Signs Temp 1700 F H 11/05/16 18:18 Pulse 82 11/05/16 16:30 Resp 17 11/05/16 16:30 BP 146/79 11/05/16 16:30 Pulse Ox 98 11/05/16 16:30 - Labs Result Diagrams: 11/05/16 16:30 11/05/16 16:30 Labs: Laboratory Results - last 24 hr 11/05/16 11/05/16 11/05/16 16:17 16:17 16:30 WBC 8.1 D RBC 3.44 L Hgb 11.0 L Hct 34.2 L MCV 99.4 MCH 32.0 MCHC 32.2 RDW 16.6 H Plt Count 262 MPV 9.6 Gran % 80.8 H Lymph % (Auto) 10.5 L [place] % (Auto) 7.0 H Eos % (Auto) 1.6 Baso % (Auto) 0.1 Gran # 6.56 H Lymph # 0.9 L [place] # 0.6 Eos # 0.1 Baso # 0.01 PT 11.8 INR 1.09 H APTT 30.4 pO2 37 VBG pH 7.38 VBG pCO2 60.0 VBG HCO3 35.5 H VBG Total CO2 37.3 H VBG O2 Sat (Calc) 70.0 H VBG Base Excess 8.2 H VBG Potassium 4.4 Sodium 144.0 Chloride 110.0 H Glucose 102 Lactate 0.8 FiO2 21.0 Potassium Carbon Dioxide Anion Gap BUN Creatinine Est GFR ( Amer) Est GFR (Non-Af Amer) Random Glucose Calcium Total Bilirubin AST ALT Alkaline Phosphatase Total Protein Albumin Globulin Albumin/Globulin Ratio Venous Blood Potassium 4.4 11/05/16 16:30 WBC RBC Hgb Hct MCV MCH MCHC RDW Plt Count MPV Gran % Lymph % (Auto) [place] % (Auto) Eos % (Auto) Baso % (Auto) Gran # Lymph # [place] # Eos # Baso # PT INR APTT pO2 VBG pH VBG pCO2 VBG HCO3 VBG Total CO2 VBG O2 Sat (Calc) VBG Base Excess VBG Potassium Sodium 143 Chloride 105 Glucose Lactate FiO2 Potassium 4.8 Carbon Dioxide 31 Anion Gap 12 BUN 52 H Creatinine 0.7 Est GFR ( Amer) > 60 Est GFR (Non-Af Amer) > 60 Random Glucose 95 Calcium 9.3 Total Bilirubin 0.8 AST 38 ALT 29 Alkaline Phosphatase 67 Total Protein 7.5 Albumin 3.8 Globulin 3.7 Albumin/Globulin Ratio 1.0 L Venous Blood Potassium Assessment & Plan - Assessment and Plan (Free Text) Assessment: 81 yo M w/ extensive medical hx, admitted for +VRE on wound cultures of the Heels -Recc. Silvadene cream BID to heels -Triple-phase bone scan to eval for OM -F/U Podiatry -IV Abx per ID and culture -No Surgical plans DW DR Jim العلي PGY2 <Freddy Fernandez - Last Filed: 11/08/16 10:14> Meds - Medications Medications: Current Medications Acetylcysteine (Acetylcysteine 20%) 4 ml IH BIDRESP [facility] Last Admin: 11/08/16 07:36 Dose: 4 ml Albuterol/Ipratropium (Duoneb 3 Mg/0.5 Mg (3 Ml) Ud) 3 ml IH [id number] [facility] Last Admin: 11/08/16 07:36 Dose: 3 ml Aspirin (Aspirin) 325 mg GT DAILY [facility] Last Admin: 11/08/16 09:34 Dose: Not Given Docusate Sodium (Colace Liquid) 100 mg GT DAILY [facility] Last Admin: 11/08/16 09:35 Dose: 100 mg Famotidine (Pepcid) 20 mg GT DAILY [facility] Last Admin: 11/08/16 09:37 Dose: 20 mg Linezolid (Zyvox 600mg/300ml D5w) 600 mg in 300 mls @ 200 mls/hr IVPB Q12 [facility] PRN Reason: Protocol Stop: 11/13/16 22:01 Last Admin: 11/07/16 23:41 Dose: 200 mls/hr Cefepime HCl (Maxipime 1gm) 1 gm in 100 mls @ 100 mls/hr IVPB Q12 [facility] PRN Reason: Protocol Last Admin: 11/08/16 09:40 Dose: 100 mls/hr Lisinopril (Zestril) 5 mg GT BID [facility] Last Admin: 11/08/16 09:37 Dose: 5 mg Metoprolol Tartrate (Lopressor) 25 mg GT BID [facility] Last Admin: 11/08/16 09:35 Dose: 25 mg Multivitamins/Vitamin C (Multi-Delyn Liquid) 15 ml PO DAILY [facility] Last Admin: 11/08/16 09:41 Dose: 15 ml Nystatin/Triamcinolone Acetonide (Nystatin/Triamcinolone Cream) 0 ea TOP BID [facility] Last Admin: 11/08/16 09:41 Dose: Not Given Oxychlorosene Sodium (Clorpactin Wcs-90) 2 gm TOP Q12 [facility] Last Admin: 11/08/16 09:34 Dose: Not Given Potassium Chloride (Potassium Chloride Oral Soln) 20 meq PO BID [facility] Last Admin: 11/08/16 09:37 Dose: 20 meq Silver Sulfadiazine (Silvadene 1% 20 Gm) 1 ea TOP BID [facility] Last Admin: 11/08/16 09:37 Dose: Not Given Results - Vital Signs Recent Vital Signs: Last Vital Signs Temp 98.9 F 11/08/16 07:30 Pulse 80 11/08/16 09:35 Resp 20 11/08/16 07:30 BP 137/92 H 11/08/16 09:35 Pulse Ox 100 11/08/16 07:30 - Labs Result Diagrams: 11/07/16 07:00 11/08/16 07:45 Labs: Laboratory Results - last 24 hr 11/07/16 11/08/16 10:30 07:45 Sodium 141 Potassium 3.5 L Chloride 107 Carbon Dioxide 29 Anion Gap 9 L BUN 36 H Creatinine 0.7 Est GFR ( Amer) > 60 Est GFR (Non-Af Amer) > 60 Random Glucose 95 Calcium 8.9 Magnesium 2.3 H Assessment & Plan - Assessment and Plan (Free Text) Plan: Chr Heel full thickness necrosis-poss Osteomyelitis Cons Topical Rx--3 phase bone scan This consult done under my direct supervision Alice Fernandez MD FACS
--- NOTE | 2016-11-05 19:41 | CON ---
DATE: 11/05/2016 HISTORY OF PRESENT ILLNESS: A 81-year-old male seen in the Emergency Room with his at bedside f or continued evaluation and management of bilateral gangrenous heel ulcerations. The patient has a c hronic left heel ulceration that has been present for several months and within the last 2 weeks his right heel broke down and became increasingly gangrenous. A wound culture taken this week reveals VR E which is resistant to all oral antibiotics. The patient is being admitted for IV antibiotics and to rule out osteomyelitis. PAST MEDICAL HISTORY: Significant for congestive heart failure, altered mental status, transient isc hemic attack, urinary tract infection, hypertension, peripheral arterial disease, cardiac arrhythmia, peripheral vascular disease. ALLERGIES: The patient has no known drug allergies. PAST SURGICAL HISTORY: Significant for cardiac catheterization with multiple stents, coronary stenti ng and tonsillectomy. SOCIAL HISTORY: The patient is . There is no history of substance abuse, no history of alcoh ol abuse. No history of tobacco use. HOME MEDICATIONS: Include Lasix, Zestril, Pepcid, aspirin, Aldactone, men's multivitamin. VITAL SIGNS: Reveal a temperature of 98.1, pulse rate of 89, blood pressure of 142/77, respiratory r ate of 18. LABORATORY FINDINGS: Reveal a white count of 8.1, hemoglobin of 11, hematocrit of 34.2, platelet cou nt of 262. There is no microbiology report noted. However, most recent culture and sensitivity take n at [facility] reveals VRE growth in the right heel. X-ray report of the right heel rev eals no radiographic evidence of cortical destruction to suggest osteomyelitis; however, there is not ed to be bony demineralization throughout his foot. OBJECTIVE: The patient is contracted. The patient has a left lower extremity contraction. There is noted to be nonpalpable pedal pulses noted bilaterally. Absent pedal hair growth noted bilaterally. Capillary filling time is delayed x 10. Lower extremity skin presents thin, shiny and discolored. There are noted to be full thickness ulcerations that encompass both heels. The left heel has ubaldo cated and shows no drainage, no purulence, no malodor, does not probe to tendon or bone and there is no evidence of abscess formation. The right heel presents with serous drainage. The wound has not d emarcated at this point. Base of the ulcer is primarily gangrenous. There is noted to be a slight m alodor. The wound does not probe to bone and there is noted to be no abscess formation. ASSESSMENT: Bilateral gangrenous heel ulcerations with vancomycin-resistant Enterococcus growth on t he right heel. PLAN: The patient was examined and x-ray report reveals no radiographic evidence of osteomyelitis in the right heel at this time. We will order arterial Dopplers to ascertain lower extremity perfusion and vascular consultation with Dr. Justen Kenney. Recommend infectious disease consult with Dr. Mickey pat after culture and sensitivity is taken. We will order full multi-Podus boots to offload both he els which is imperative at this point. We will plan on cleansing both heels with Clorpactin solution . We will apply Betadine solution in an effort to desiccate the gangrenous tissue, which will allow it to slough off and let granulation tissue emerge to the surface. I spoke with patient's at [facility] and all questions were answered. We will await culture results for infectious disease recommend ation. The patient will be seen and followed daily. Jose Angel Farris DPM cc: [id number] TT: 11/05/2016 19:41:23 Confirmation # [id number] Dictation # [id number] geovany
[2016-11-05] MEDS: Albuterol-Ipratrop 3 mg / 0.5 (3 ml) UD IH SCH (20:30)
[2016-11-05] MEDS: Acetylcysteine 20% Inhal Soln (4ml) IH SCH (20:30)
[2016-11-05] MEDS: Oxychlorosene Topical 2 gm Packet TOP SCH (21:53)
[2016-11-05] MEDS ORDERED: Pneumococcal 23-Valent Vaccine IM ONE (22:59)
[2016-11-06] MEDS: Albuterol-Ipratrop 3 mg / 0.5 (3 ml) UD IH SCH ×4 (02:16→19:51)
[2016-11-06] MEDS: Acetylcysteine 20% Inhal Soln (4ml) IH SCH ×2 (07:16→19:51)
--- NOTE | 2016-11-06 09:54 | CP.PCM.PN ---
Subjective - Date & Time of Evaluation Date of Evaluation: 11/06/16 Time of Evaluation: 07:00 - Subjective Subjective: General Surgery Pt S&E, NAEO. Pt did not verbalize any responses to questions, had occasional head nods but not always when asked a question. Objective - Vital Signs/Intake and Output Vital Signs (last 24 hours): Temp Pulse Resp BP Pulse Ox 98.1 F 82 17 146/79 98 11/05/16 22:17 11/05/16 22:17 11/05/16 22:17 11/05/16 22:17 11/05/16 16:30 - Medications Medications: Current Medications Acetylcysteine (Acetylcysteine 20%) 4 ml IH BIDRESP [facility] Last Admin: 11/06/16 07:16 Dose: 4 ml Albuterol/Ipratropium (Duoneb 3 Mg/0.5 Mg (3 Ml) Ud) 3 ml IH [id number] [facility] Last Admin: 11/06/16 07:16 Dose: 3 ml Aspirin (Aspirin) 325 mg GT DAILY [facility] Docusate Sodium (Colace Liquid) 100 mg GT DAILY [facility] Famotidine (Pepcid) 20 mg GT DAILY [facility] Lisinopril (Zestril) 5 mg GT BID [facility] Metoprolol Tartrate (Lopressor) 25 mg GT BID [facility] Multivitamins/Vitamin C (Multi-Delyn Liquid) 15 ml PO DAILY [facility] Oxychlorosene Sodium (Clorpactin Wcs-90) 2 gm TOP Q12 [facility] Last Admin: 11/05/16 21:53 Dose: 2 gm Silver Sulfadiazine (Silvadene 1% 20 Gm) 1 ea TOP BID [facility] Last Admin: 11/05/16 17:30 Dose: 1 gm - Labs Labs: 11/05/16 16:30 11/05/16 16:30 PT 11.8 Seconds (9.9-11.8) 11/05/16 16:17 INR 1.09 (0.93-1.08) H 11/05/16 16:17 APTT 30.4 Seconds (23.7-30.8) 11/05/16 16:17 - Constitutional Appears: Non-toxic, No Acute Distress - Head Exam Head Exam: ATRAUMATIC, NORMOCEPHALIC - Eye Exam Eye Exam: absent: Conjunctival injection, Scleral icterus - Respiratory Exam Respiratory Exam: NORMAL BREATHING PATTERN. absent: Respiratory Distress Additional comments: on o2 mask - Cardiovascular Exam Cardiovascular Exam: absent: Tachycardia - GI/Abdominal Exam GI & Abdominal Exam: Soft. absent: Distended, Tenderness - Extremities Exam Extremities Exam: absent: Pedal Edema Additional comments: B/L necrotic heel ulcers, dry, no erythema, poor pulses - Neurological Exam Neurological Exam: Awake. absent: Oriented x3 - Skin Skin Exam: Dry, Warm Assessment and Plan - Assessment and Plan (Free Text) Assessment: 81M w/ extensive medical hx, admitted for +VRE on wound cultures of the Heels Plan: -Recs: Silvadene cream BID to heels -Triple-phase bone scan to eval for OM -Other foot care plans per Podiatry -IV Abx per ID. -No Surgical plans at this time. PGY3
[2016-11-06] MEDS: Multi Vitamins 15 mL UD Oral Solution PO SCH (10:00)
[2016-11-06] MEDS: Oxychlorosene Topical 2 gm Packet TOP SCH ×2 (10:01→22:54)
[2016-11-06] MEDS: Silver Sulfadiazine 1% Cream (20 gm) TOP SCH ×2 (10:02→17:47)
[2016-11-06 11:29] LABS: BLOOD UREA NITROGEN 50 mg/dL (7-21); CALCIUM 9.2 mg/dL (8.4-10.5); CARBON DIOXIDE 28 mmol/L (21-33); CHLORIDE 106 mmol/L (98-107); GFR AFRICAN-AMERICAN > 60; GLUCOSE,RANDOM 156 mg/dL (70-110); POTASSIUM 3.7 mmol/L (3.6-5.0); SODIUM 143 mmol/L (132-148)
--- NOTE | 2016-11-06 11:41 | PN ---
DATE: 11/06/2016 A 81-year-old male seen at bedside for continued evaluation and management of bilateral gangrenous he el ulcerations. Arterial Doppler was ordered to ascertain lower extremity perfusion. However, a rec ent Doppler was done 3 weeks ago while the patient was in [facility]. Given this fact and coupled wit h the fact that he is jarret, vascular intervention seems highly unlikely, so we canceled his ar terial Doppler orders. VITAL SIGNS: Reveal temperature of 98.1, pulse rate of 82, blood pressure of 146/79, respiratory rat e of 17. LABORATORY DATA: Reveal a white count of 8.1, hemoglobin of 11.0, hematocrit of 34.2, platelet count of 262. X-ray report reveals no radiographic evidence of osteomyelitis; however, bone scan was orde red and is pending on his right heel. OBJECTIVE: The patient's lower extremity is contracted. There is noted to be nonpalpable pedal puls es bilaterally. Absent pedal hair growth noted bilaterally. Capillary filling time is delayed x 10. Both lower extremity skin presents thin, shiny and discolored. There are full-thickness gangrenous ulcerations that encompass both heels. The left heel ulceration has demarcated. The right heel ulc eration has not, as of yet, demarcated. None of the ulcers reveal purulence to suggest underlying ab scess formation. None of the ulcers probe to bone. There is noted to be a slight malodor to the rig ht heel. ASSESSMENT: Bilateral gangrenous heel ulcerations with vancomycin-resistant Enterococcus growth on t he right heel. PLAN: The patient has not had a culture and sensitivity, so culture and sensitivity was taken today and submitted. Recommend immediate consult with infectious disease, Dr. Mickey Castillo. He will prescrib e accordingly. I spoke with Dr. Long at length regarding case. The patient is not a surgical marina date for vascular intervention or excisional debridement at this time. Palliative care is the course of action that we will follow going forward. We will cleanse the right heel with Clorpactin solutio n which is at bedside and apply a small amount of Silvadene and a dry sterile dressing. The left kam l will be cleansed with normal sterile saline and we will apply Betadine solution and a dry sterile d ressing. We will attempt to slough off. We will apply the Silvadene to the right heel in the short term and then switch to Betadine and an attempt to desiccate the gangrenous cap that is present and a llow granulation tissue to emerge to the surface. We will continue to offload at all times using the foam multi-Podus boots. We will await culture results and infectious disease recommendation. Jose Angel Farris DPM cc: [id number] TT: 11/06/2016 11:40:21 Confirmation # [id number] Dictation # [id number] geovany
--- NOTE | 2016-11-06 14:42 | HP ---
HISTORY OF PRESENT ILLNESS: A 81-year-old male, resident of [facility] with history of p eripheral vascular disease, atrial fibrillation, multiple strokes, vascular dementia, lumbar disk dis ease, bilateral foot drop, pneumonia, sepsis, osteomyelitis of the left foot, BPH, aspiration pneumon ia, dysphagia, with heel ulcers bilateral, recent culture shows VRE and recommendation was to admit t he patient for further management and infectious disease and surgical evaluation. SOCIAL HISTORY: He is a nonsmoker, nondrinker, nondrug user. He has a living will. He is a DNR/DNI and he is a resident of [facility]. ALLERGIES: There are no known allergies. REVIEW OF SYSTEMS: Fourteen systems are reviewed. Pertinent findings are that the patient is awake, minimal communication, there is contracture of the lower extremities. There are ulcers on both heel s. There is a feeding PEG in place and he has a So catheter in place. MEDICATIONS: The patient's medications have been Aldactone 25 mg b.i.d., potassium chloride 20 mEq b .i.d., multivitamin daily, Lopressor 25 mg b.i.d., Zestril 5 mg b.i.d., Lasix 40 mg daily, Pepcid 20 mg daily, Colace 100 mg daily, Ecotrin 325 mg daily, albuterol treatments q. 6 hours and acetylcystei ne 4 mL inhalation b.i.d. PHYSICAL EXAMINATION: VITAL SIGNS: Temp of 98, his pulse is 82, his blood pressure is 146/79, respiratory rate is 17, his oxygen saturation on 2 liters was 98%. NEUROLOGIC: Awake, alert to person. NECK: Supple. No JVD. PULMONARY: Lungs are clear. HEART: Irregular S1, S2 rhythm. ABDOMEN: Soft with positive bowel sounds. There is an indwelling feeding PEG in place. EXTREMITIES: Contracted, no evidence of edema. Bilateral ulcers with dry gangrenous areas on the he els. Chest x-ray showed no evidence of active disease. An x-ray of the right heel showed no evidence of o steomyelitis. EKG was reported as showing his atrial fibrillation. LABORATORY DATA: Shows a WBC of 8.1, RBC 3.44, hemoglobin 11, hematocrit 34.2, platelet count was 26 2,000. PT is 11.8 with an INR of 1.09, PTT of 30.4. Lactate was 0.8. Chemistry showed normal sodiu m 143, potassium 4.8, chloride 105, BUN is 52, creatinine is 0.7. LFTs are normal. The patient will be seen by surgery and podiatry who has been following the patient. Stacie jamafabiola has been approached, the patient has known peripheral vascular disease. Discussion with the family, does not wish to be aggressive, wishing conservative care. We will get infectious disease e valuation with cultures of blood, urine and wound. Get a C-reactive protein and a sed rate and get a triple phase bone scan to rule out the possibility of osteomyelitis. We will continue his feedings through the PEG tube. He has known dysphagia secondary to his vascular dementia. Will follow up the patient's labs. Cornelia Long MD cc: [id number] TT: 11/06/2016 14:40:57 stacey
--- NOTE | 2016-11-06 15:51 | CARD ---
APPROVED REPORT EKG Measurement Heart [id number] <Conclusion> Atrial fibrillation with premature ventricular or aberrantly conducted complexes Right bundle branch block Left anterior fascicular block Bifascicular block Abnormal ECG
--- NOTE | 2016-11-06 16:32 | CP.PCM.CON ---
History of Present Illness - History of Present Illness History of Present Illness: 81 year old male with PMH of atrial fibrillation, HTN, peripheral vascular disease, history of cerebrovascular accident with left sided carotid artery disease, benign prostatic hyperplasia, dementia, history of left lower lobe healthcare-associated pneumonia [facility] of positive VRE noted on the wound cultures of the heels. The patient has had this issue for the year and is currently undergoing local wound care. The patient is not very cooperative and review of systems is difficult to obtain. Infectious diseases consult is requested to further evaluate and manage. Review of Systems - Review of Systems Systems not reviewed;Unavailable: Uncooperative Past Patient History - Infectious Disease Hx of Infectious Diseases: None - Tetanus Immunizations Tetanus Immunization: Unknown - Past Medical History & Family History Past Medical History?: Yes - Past Social History Smoking Status: Unknown If Ever Smoked - CARDIAC Hx Cardia Arrhythmia: Yes Hx Congestive Heart Failure: Yes Hx Hypercholesterolemia: Yes Hx Hypertension: Yes Hx Peripheral Vascular Disease: Yes Other/Comment: ptca with stents x8, groin bleed post 1 ptca - PULMONARY Hx Bronchitis: Yes Hx Pneumonia: Yes - NEUROLOGICAL Hx Neurological Disorder: Yes HX Cerebrovascular Accident: Yes Hx Dementia: Yes Hx Transient Ischemic Attacks (TIA): Yes - HEENT Hx HEENT Problems: No - RENAL Hx Chronic Kidney Disease: No - ENDOCRINE/METABOLIC Hx Endocrine Disorders: No - HEMATOLOGICAL/ONCOLOGICAL Hx Blood Disorders: Yes Hx Anemia: Yes (blood transfusion) Hx Cancer: Yes (prostate,skin) - INTEGUMENTARY Hx Dermatological Problems: Yes Other/Comment: buttocks bright red skin no openings, b/l groin red skin,5cm x 3cm r heel dry black wound with red flakey skin, 6cm x 3cm black dry skin and dry , ble multiple skin discolorations and dry flakey skin, red raised rash to chest neck shoulders and arms, multiple age spots to b/l arms, small red spots to face and light skin discoloration to r muslim, skin red on chest under chin, 1cm round lump to left forehead, r great toe red swollen with small 0.2cm red wound, dry blood to r 4th toe, multiple dry nodules to ble - MUSCULOSKELETAL/RHEUMATOLOGICAL Hx Musculoskeletal Disorders: Yes Hx Back Pain: Yes Hx Degenerative Joint Disease: Yes Hx Falls: Yes (past) Hx Fractures: Yes (pelvis) Hx Osteoarthritis: Yes Hx Spinal Stenosis: Yes Hx Unsteady Gait: Yes (left leg contracted) - GASTROINTESTINAL Hx Gastrointestinal Disorders: Yes (g tube 06/30/2016) Hx Gastroesophageal Reflux: Yes Other/Comment: incontinent of stool - GENITOURINARY/GYNECOLOGICAL Hx Genitourinary Disorders: Yes Hx Hematuria: Yes Hx Incontinence: Yes Hx Prostate Problems: Yes (bph) Hx Urinary Tract Infection: Yes - PSYCHIATRIC Hx Anxiety: Yes Hx Depression: Yes Hx Emotional Abuse: No Hx Physical Abuse: No - SURGICAL HISTORY Hx Cardiac Catheterization: Yes (with stents) Hx Coronary Stent: Yes (x8) Other/Comment: tonsilectomy, laminectomy - ANESTHESIA Hx Anesthesia: Yes Hx Anesthesia Reactions: No Hx Malignant Hyperthermia: No Meds Allergies/Adverse Reactions: Allergies Allergy/AdvReac Type Severity Reaction Status Date / Time No Known Allergies Allergy Verified 08/15/16 17:38 - Medications Medications: Current Medications Acetylcysteine (Acetylcysteine 20%) 4 ml IH BIDRESP [facility] Last Admin: 11/05/16 20:30 Dose: 4 ml Albuterol/Ipratropium (Duoneb 3 Mg/0.5 Mg (3 Ml) Ud) 3 ml IH [id number] [facility] Last Admin: 11/06/16 02:16 Dose: 3 ml Aspirin (Aspirin) 325 mg GT DAILY [facility] Docusate Sodium (Colace Liquid) 100 mg GT DAILY [facility] Famotidine (Pepcid) 20 mg GT DAILY [facility] Lisinopril (Zestril) 5 mg GT BID [facility] Metoprolol Tartrate (Lopressor) 25 mg GT BID [facility] Multivitamins/Vitamin C (Multi-Delyn Liquid) 15 ml PO DAILY [facility] Oxychlorosene Sodium (Clorpactin Wcs-90) 2 gm TOP Q12 [facility] Last Admin: 11/05/16 21:53 Dose: 2 gm Silver Sulfadiazine (Silvadene 1% 20 Gm) 1 ea TOP BID [facility] Last Admin: 11/05/16 17:30 Dose: 1 gm Physical Exam - Constitutional Appears: Non-toxic, No Acute Distress - Head Exam Head Exam: NORMAL INSPECTION - Neck Exam Neck exam: Negative for: Meningismus - Respiratory Exam Respiratory Exam: Decreased Breath Sounds - Cardiovascular Exam Cardiovascular Exam: +S1, +S2 - GI/Abdominal Exam GI & Abdominal Exam: Soft. absent: Tenderness - Extremities Exam Additional comments: both feet with dry dressings in place Results - Vital Signs Recent Vital Signs: Last Vital Signs Temp 98.1 F 11/05/16 22:17 Pulse 82 11/05/16 22:17 Resp 17 11/05/16 22:17 BP 146/79 11/05/16 22:17 Pulse Ox 98 11/05/16 16:30 - Labs Result Diagrams: 11/05/16 16:30 11/06/16 11:00 Labs: Laboratory Results - last 24 hr 11/05/16 11/05/16 11/05/16 16:17 16:17 16:30 WBC 8.1 D RBC 3.44 L Hgb 11.0 L Hct 34.2 L MCV 99.4 MCH 32.0 MCHC 32.2 RDW 16.6 H Plt Count 262 MPV 9.6 Gran % 80.8 H Lymph % (Auto) 10.5 L [place] % (Auto) 7.0 H Eos % (Auto) 1.6 Baso % (Auto) 0.1 Gran # 6.56 H Lymph # 0.9 L [place] # 0.6 Eos # 0.1 Baso # 0.01 PT 11.8 INR 1.09 H APTT 30.4 pO2 37 VBG pH 7.38 VBG pCO2 60.0 VBG HCO3 35.5 H VBG Total CO2 37.3 H VBG O2 Sat (Calc) 70.0 H VBG Base Excess 8.2 H VBG Potassium 4.4 Sodium 144.0 Chloride 110.0 H Glucose 102 Lactate 0.8 FiO2 21.0 Potassium Carbon Dioxide Anion Gap BUN Creatinine Est GFR ( Amer) Est GFR (Non-Af Amer) Random Glucose Calcium Total Bilirubin AST ALT Alkaline Phosphatase Total Protein Albumin Globulin Albumin/Globulin Ratio Venous Blood Potassium 4.4 11/05/16 16:30 WBC RBC Hgb Hct MCV MCH MCHC RDW Plt Count MPV Gran % Lymph % (Auto) [place] % (Auto) Eos % (Auto) Baso % (Auto) Gran # Lymph # [place] # Eos # Baso # PT INR APTT pO2 VBG pH VBG pCO2 VBG HCO3 VBG Total CO2 VBG O2 Sat (Calc) VBG Base Excess VBG Potassium Sodium 143 Chloride 105 Glucose Lactate FiO2 Potassium 4.8 Carbon Dioxide 31 Anion Gap 12 BUN 52 H Creatinine 0.7 Est GFR ( Amer) > 60 Est GFR (Non-Af Amer) > 60 Random Glucose 95 Calcium 9.3 Total Bilirubin 0.8 AST 38 ALT 29 Alkaline Phosphatase 67 Total Protein 7.5 Albumin 3.8 Globulin 3.7 Albumin/Globulin Ratio 1.0 L Venous Blood Potassium Assessment & Plan - Assessment and Plan (Free Text) Plan: Assessment Dry gangrene of both heels, growing VRE on wound cx, R/O osteomyelitis in a patient with peripheral vascular disease history of aspiration pneumonia, healthcare-associated history of Klebsiella in the urine, consider UTI history of left lower lobe healthcare-associated pneumonia atrial fibrillation HTN peripheral vascular disease history of cerebrovascular accident with left sided carotid artery disease benign prostatic hyperplasia dementia Plan follow up repeat wound cx and triple phase bone scan; will start Zyvox and monitor clinically
[2016-11-06] MEDS: Linezolid 600 mg in D5W 300 ml 600 MG/300 ML BAG IVPB SCH (22:52)
[2016-11-07] MEDS: Albuterol-Ipratrop 3 mg / 0.5 (3 ml) UD IH SCH ×4 (02:45→20:29)
[2016-11-07] MEDS: Oxychlorosene Topical 2 gm Packet TOP SCH ×3 (03:22→21:41)
[2016-11-07] MEDS: Acetylcysteine 20% Inhal Soln (4ml) IH SCH ×2 (07:32→20:29)
[2016-11-07 08:01] LABS: ADD MANUAL DIFF? NO
[2016-11-07 08:27] LABS: BASO # 0.01 K/mm3 (0.0-2.0); BASO % 0.2 % (0.0-3.0); EOS # 0.1 (0.0-0.7); EOS % 1.2 % (1.5-5.0); GRAN # 4.83 (1.4-6.5); GRAN % 81.8 % (50.0-68.0); HEMATOCRIT 30.3 % (42.0-52.0); LYMPH # 0.6 (1.2-3.4); LYMPH % 10.2 % (22.0-35.0); MEAN CELL VOLUME 98.1 fL (80.0-105.0); MEAN CORPUSCULAR HEMOGLOBIN 30.7 pg (25.0-35.0); MEAN CORPUSCULAR HGB CONC 31.4 g/dl (31.0-37.0); MEAN PLATELET VOLUME 9.2 fl (7.0-11.0); MONO # 0.4 (0.1-0.6); MONO % 6.6 % (1.0-6.0); PLATELET COUNT 251 10^3/uL (120.0-450.0); RED CELL DISTRIBUTION WIDTH 16.2 % (11.5-14.5); WHITE BLOOD COUNT 5.9 10^3/ul (4.5-11.0)
[2016-11-07 08:33] LABS: GFR AFRICAN-AMERICAN > 60
--- NOTE | 2016-11-07 08:54 | CP.PCM.PN ---
Subjective - Date & Time of Evaluation Date of Evaluation: 11/07/16 Time of Evaluation: 06:40 - Subjective Subjective: General Surgery Pt S&E, Pt is minimally verbal and will respond to some questions. Denies any complaints. Discussed case with Podiatry resident yesterday, will defer to their recs for heel care. Objective - Vital Signs/Intake and Output Vital Signs (last 24 hours): Temp Pulse Resp BP Pulse Ox 98.7 F 80 16 142/97 H 92 L 11/07/16 08:29 11/07/16 08:29 11/07/16 08:29 11/07/16 08:29 11/07/16 08:29 Intake and Output: 11/07/16 11/07/16 06:59 18:59 Output Total 400 Balance -400 - Medications Medications: Current Medications Acetylcysteine (Acetylcysteine 20%) 4 ml IH BIDRESP [facility] Last Admin: 11/07/16 07:32 Dose: 4 ml Albuterol/Ipratropium (Duoneb 3 Mg/0.5 Mg (3 Ml) Ud) 3 ml IH [id number] [facility] Last Admin: 11/07/16 07:32 Dose: 3 ml Aspirin (Aspirin) 325 mg GT DAILY [facility] Last Admin: 11/06/16 10:00 Dose: 325 mg Docusate Sodium (Colace Liquid) 100 mg GT DAILY [facility] Last Admin: 11/06/16 10:00 Dose: 100 mg Famotidine (Pepcid) 20 mg GT DAILY [facility] Last Admin: 11/06/16 10:00 Dose: 20 mg Linezolid (Zyvox 600mg/300ml D5w) 600 mg in 300 mls @ 200 mls/hr IVPB Q12 [facility] PRN Reason: Protocol Stop: 11/13/16 22:01 Last Admin: 11/06/16 22:52 Dose: 200 mls/hr Lisinopril (Zestril) 5 mg GT BID [facility] Last Admin: 11/06/16 17:45 Dose: 5 mg Metoprolol Tartrate (Lopressor) 25 mg GT BID [facility] Last Admin: 11/06/16 17:46 Dose: 25 mg Multivitamins/Vitamin C (Multi-Delyn Liquid) 15 ml PO DAILY [facility] Last Admin: 11/06/16 10:00 Dose: 15 ml Oxychlorosene Sodium (Clorpactin Wcs-90) 2 gm TOP Q12 [facility] Last Admin: 11/07/16 03:22 Dose: Not Given Silver Sulfadiazine (Silvadene 1% 20 Gm) 1 ea TOP BID [facility] Last Admin: 11/06/16 17:47 Dose: 1 gm - Labs Labs: 11/07/16 07:00 11/06/16 11:00 PT 11.8 Seconds (9.9-11.8) 11/05/16 16:17 INR 1.09 (0.93-1.08) H 11/05/16 16:17 APTT 30.4 Seconds (23.7-30.8) 11/05/16 16:17 - Constitutional Appears: Non-toxic, No Acute Distress - Head Exam Head Exam: ATRAUMATIC, NORMOCEPHALIC - Eye Exam Eye Exam: EOMI. absent: Scleral icterus - Respiratory Exam Respiratory Exam: NORMAL BREATHING PATTERN. absent: Respiratory Distress - GI/Abdominal Exam GI & Abdominal Exam: Soft. absent: Distended, Tenderness - Extremities Exam Additional comments: B/L necrotic heel ulcers, dry, no erythema, poor pulses multi-podus boots on - Back Exam Additional comments: stage 1 decubitous ulcer with - Neurological Exam Neurological Exam: Altered, Awake - Skin Skin Exam: Dry, Warm Assessment and Plan - Assessment and Plan (Free Text) Assessment: 81M w/ extensive medical hx, admitted for +VRE on wound cultures of the Heels Plan: -Follow up bone scan read -Foot care plans per Podiatry -IV Abx per ID. -Air mattress and turning Q2H -No Surgical plans at this time. Will D/W Dr. Jim Shrestha PGY3
[2016-11-07 09:00] LABS: BLOOD UREA NITROGEN 43 mg/dL (7-21); CARBON DIOXIDE 28 mmol/L (21-33); CHLORIDE 107 mmol/L (95-110); GLUCOSE,RANDOM 104 mg/dL (70-110); POTASSIUM 3.5 mmol/L (3.6-5.0); SODIUM 142 mmol/L (132-148)
[2016-11-07] MEDS: Cefepime 1gm in NS 100ml 1 GM/100 ML BAG IVPB SCH ×2 (10:57→21:33)
[2016-11-07] MEDS: Silver Sulfadiazine 1% Cream (20 gm) TOP SCH ×2 (10:58→17:50)
[2016-11-07] MEDS: Multi Vitamins 15 mL UD Oral Solution PO SCH (10:58)
[2016-11-07] MEDS: Linezolid 600 mg in D5W 300 ml 600 MG/300 ML BAG IVPB SCH ×2 (12:01→23:41)
--- NOTE | 2016-11-07 14:12 | CP.PCM.PN ---
Subjective - Date & Time of Evaluation Date of Evaluation: 11/07/16 Time of Evaluation: 13:10 - Subjective Subjective: Comfortable, afebrile, not in distress. Objective - Vital Signs/Intake and Output Vital Signs (last 24 hours): Temp Pulse Resp BP Pulse Ox 98.7 F 80 16 142/97 H 92 L 11/07/16 08:29 11/07/16 08:29 11/07/16 08:29 11/07/16 08:29 11/07/16 08:29 Intake and Output: 11/07/16 11/07/16 06:59 18:59 Output Total 400 Balance -400 - Medications Medications: Current Medications Acetylcysteine (Acetylcysteine 20%) 4 ml IH BIDRESP [facility] Last Admin: 11/07/16 07:32 Dose: 4 ml Albuterol/Ipratropium (Duoneb 3 Mg/0.5 Mg (3 Ml) Ud) 3 ml IH [id number] [facility] Last Admin: 11/07/16 07:32 Dose: 3 ml Aspirin (Aspirin) 325 mg GT DAILY [facility] Last Admin: 11/06/16 10:00 Dose: 325 mg Docusate Sodium (Colace Liquid) 100 mg GT DAILY [facility] Last Admin: 11/06/16 10:00 Dose: 100 mg Famotidine (Pepcid) 20 mg GT DAILY [facility] Last Admin: 11/06/16 10:00 Dose: 20 mg Linezolid (Zyvox 600mg/300ml D5w) 600 mg in 300 mls @ 200 mls/hr IVPB Q12 [facility] PRN Reason: Protocol Stop: 11/13/16 22:01 Last Admin: 11/06/16 22:52 Dose: 200 mls/hr Lisinopril (Zestril) 5 mg GT BID [facility] Last Admin: 11/06/16 17:45 Dose: 5 mg Metoprolol Tartrate (Lopressor) 25 mg GT BID [facility] Last Admin: 11/06/16 17:46 Dose: 25 mg Multivitamins/Vitamin C (Multi-Delyn Liquid) 15 ml PO DAILY [facility] Last Admin: 11/06/16 10:00 Dose: 15 ml Oxychlorosene Sodium (Clorpactin Wcs-90) 2 gm TOP Q12 [facility] Last Admin: 11/07/16 03:22 Dose: Not Given Potassium Chloride (Potassium Chloride Oral Soln) 20 meq PO BID [facility] Silver Sulfadiazine (Silvadene 1% 20 Gm) 1 ea TOP BID [facility] Last Admin: 11/06/16 17:47 Dose: 1 gm - Labs Labs: 11/07/16 07:00 11/07/16 07:00 PT 11.8 Seconds (9.9-11.8) 11/05/16 16:17 INR 1.09 (0.93-1.08) H 11/05/16 16:17 APTT 30.4 Seconds (23.7-30.8) 11/05/16 16:17 - Constitutional Appears: Non-toxic, No Acute Distress - Head Exam Head Exam: NORMAL INSPECTION - Neck Exam Neck Exam: absent: Meningismus - Respiratory Exam Respiratory Exam: Decreased Breath Sounds - Cardiovascular Exam Cardiovascular Exam: +S1, +S2 - GI/Abdominal Exam GI & Abdominal Exam: Soft. absent: Tenderness Assessment and Plan - Assessment and Plan (Free Text) Plan: Assessment Dry gangrene of both heels, growing gram negative bacilli and VRE on wound cx, R /O osteomyelitis in a patient with peripheral vascular disease history of aspiration pneumonia, healthcare-associated history of Klebsiella in the urine, consider UTI history of left lower lobe healthcare-associated pneumonia atrial fibrillation HTN peripheral vascular disease history of cerebrovascular accident with left sided carotid artery disease benign prostatic hyperplasia dementia Plan follow up repeat wound cx and triple phase bone scan; continue Zyvox and added Cefepime and continue to monitor clinically
--- NOTE | 2016-11-07 14:55 | PN ---
DATE: 11/07/2016 SUBJECTIVE: This is a 81-year-old male, lying in bed. Nursing staff relates that there were no prob lems during the night. PHYSICAL EXAMINATION: VITAL SIGNS: His temp is 98.7, his pulse is 80, blood pressure is 142/80, oxygen saturation is 92%, respiratory rate is 16. GENERAL: He is awake. LUNGS: Showed scattered rhonchi. HEART: Has an irregular S1, S2 rhythm. ABDOMEN: Has a feeding PEG in place. EXTREMITIES: Show contractures. There are bilateral ulcers on the heels. LABORATORY DATA: Shows a WBC of 5.9, RBC 3.09, hemoglobin 9.5, hematocrit 30.3, platelet count is 25 1. Chemistry shows sodium 142, potassium 3.2, chloride 107, BUN is 43, creatinine is 0.6. His BUN i s improving off of Lasix. His magnesium is 2.3. His C-reactive protein is 15. His sedimentation ra te is 75. ASSESSMENT AND PLAN: The patient is receiving treatment for bilateral heel ulcers with culture done at [facility] showing vancomycin resistant enterococci (VRE). He is being followed by po diatry and surgery for his wound care and by infectious disease. He has been placed on Zyvox IV. Cu ltures of blood and urine are pending. He is on respiratory treatments for his underlying chronic ob structive pulmonary disease. He has underlying dementia with a swallowing disorder and has a feeding PEG in place. We will continue current level of supportive care. He has a living will. He is a DN R/DNI and will follow his labs. Cornelia Long MD cc: [id number] TT: 11/07/2016 12:19:32 Confirmation # [id number] Dictation # [id number] stacey
[2016-11-07] MEDS: Potassium Chloride 20 mEq/15 ml LIQ UD PO SCH (17:48)
[2016-11-07] MEDS: Nystatin-Triamcinolone Cream(30 gm) TOP SCH (17:48)
[2016-11-08] MEDS: Albuterol-Ipratrop 3 mg / 0.5 (3 ml) UD IH SCH ×4 (02:56→20:51)
[2016-11-08] MEDS: Acetylcysteine 20% Inhal Soln (4ml) IH SCH ×2 (07:36→20:51)
[2016-11-08 08:29] LABS: BLOOD UREA NITROGEN 36 mg/dL (7-21); CALCIUM 8.9 mg/dL (8.4-10.5); CARBON DIOXIDE 29 mmol/L (21-33); CHLORIDE 107 mmol/L (95-110); GFR AFRICAN-AMERICAN > 60; GLUCOSE,RANDOM 95 mg/dL (70-110); POTASSIUM 3.5 mmol/L (3.6-5.0); SODIUM 141 mmol/L (132-148)
[2016-11-08] MEDS: Oxychlorosene Topical 2 gm Packet TOP SCH (09:34)
[2016-11-08] MEDS: Potassium Chloride 20 mEq/15 ml LIQ UD PO SCH (09:37)
[2016-11-08] MEDS: Silver Sulfadiazine 1% Cream (20 gm) TOP SCH (09:37)
[2016-11-08] MEDS: Cefepime 1gm in NS 100ml 1 GM/100 ML BAG IVPB SCH ×2 (09:40→22:02)
[2016-11-08] MEDS: Nystatin-Triamcinolone Cream(30 gm) TOP SCH ×2 (09:41→16:00)
[2016-11-08] MEDS: Multi Vitamins 15 mL UD Oral Solution PO SCH (09:41)
--- NOTE | 2016-11-08 09:58 | CP.PCM.PN ---
Subjective - Date & Time of Evaluation Date of Evaluation: 11/08/16 Time of Evaluation: 09:55 - Subjective Subjective: 81 y/o male seen at bedside with attending Dr. Welch for bilateral heel eschars. Patient is alert and awake but not oriented. Patient is severely contracted. Offloading boots are intact to bilateral lower extremities. Patient appears in NAD. Objective - Vital Signs/Intake and Output Vital Signs (last 24 hours): Temp Pulse Resp BP Pulse Ox 98.9 F 80 20 137/92 H 100 11/08/16 07:30 11/08/16 07:30 11/08/16 07:30 11/08/16 07:30 11/08/16 07:30 Intake and Output: 11/08/16 11/08/16 06:59 18:59 Output Total 575 Balance -575 - Medications Medications: Current Medications Acetylcysteine (Acetylcysteine 20%) 4 ml IH BIDRESP [facility] Last Admin: 11/08/16 07:36 Dose: 4 ml Albuterol/Ipratropium (Duoneb 3 Mg/0.5 Mg (3 Ml) Ud) 3 ml IH [id number] [facility] Last Admin: 11/08/16 07:36 Dose: 3 ml Aspirin (Aspirin) 325 mg GT DAILY [facility] Last Admin: 11/07/16 10:56 Dose: 325 mg Docusate Sodium (Colace Liquid) 100 mg GT DAILY [facility] Last Admin: 11/07/16 10:57 Dose: 100 mg Famotidine (Pepcid) 20 mg GT DAILY [facility] Last Admin: 11/07/16 10:58 Dose: 20 mg Linezolid (Zyvox 600mg/300ml D5w) 600 mg in 300 mls @ 200 mls/hr IVPB Q12 PETTY PRN Reason: Protocol Stop: 11/13/16 22:01 Last Admin: 11/07/16 23:41 Dose: 200 mls/hr Cefepime HCl (Maxipime 1gm) 1 gm in 100 mls @ 100 mls/hr IVPB Q12 PETTY PRN Reason: Protocol Last Admin: 11/07/16 21:33 Dose: 100 mls/hr Lisinopril (Zestril) 5 mg GT BID [facility] Last Admin: 11/07/16 17:49 Dose: 5 mg Metoprolol Tartrate (Lopressor) 25 mg GT BID [facility] Last Admin: 11/07/16 17:49 Dose: 25 mg Multivitamins/Vitamin C (Multi-Delyn Liquid) 15 ml PO DAILY [facility] Last Admin: 11/07/16 10:58 Dose: 15 ml Nystatin/Triamcinolone Acetonide (Nystatin/Triamcinolone Cream) 0 ea TOP BID [facility] Last Admin: 11/07/16 17:48 Dose: 1 gm Oxychlorosene Sodium (Clorpactin Wcs-90) 2 gm TOP Q12 [facility] Last Admin: 11/07/16 21:41 Dose: Not Given Potassium Chloride (Potassium Chloride Oral Soln) 20 meq PO BID [facility] Last Admin: 11/07/16 17:48 Dose: 20 meq Silver Sulfadiazine (Silvadene 1% 20 Gm) 1 ea TOP BID [facility] Last Admin: 11/07/16 17:50 Dose: Not Given - Labs Labs: 11/07/16 07:00 11/08/16 07:45 PT 11.8 Seconds (9.9-11.8) 11/05/16 16:17 INR 1.09 (0.93-1.08) H 11/05/16 16:17 APTT 30.4 Seconds (23.7-30.8) 11/05/16 16:17 - Constitutional Appears: Well, Non-toxic, No Acute Distress - Extremities Exam Additional comments: Vasc: dopplerable pedal pulses bilaterally, CFT < 5 sec to all digits neuro: unable to assess derm:full thickness gangrenous ulcerations to heels bilaterally, hyperpigmented , mild malodor, no probe to bone, no underlying abscess formation ortho: severely contracted - Neurological Exam Neurological Exam: Alert, Awake Assessment and Plan - Assessment and Plan (Free Text) Assessment: 81 y/o male seen at bedside for bilateral heel ulcerations with VRE growth of right foot. Plan: patient evaluated and chart reviewed seen at bedside with attending Dr. Welch labs and vitals reviewed patient to go to OR for bilateral heel wound debridements NPO after breakfast today patient will need verbal consent from for surgical procedure applied optifoam to heels bilaterally with offloading boots continue IV abx as per ID podiatry will continue to follow
--- NOTE | 2016-11-08 10:50 | CP.PCM.PN ---
Subjective - Date & Time of Evaluation Date of Evaluation: 11/08/16 Time of Evaluation: 06:30 - Subjective Subjective: Farooq Malone D.O. PGY-1, General Surgery Progress Note: Dr. Jim Thomas. 81 year old male with an extensive PMH who was admitted for BL heel wounds with VRE. Patient was seen and examined at bedside with surgical team and at this time has no complaints, denies any N/V/C/D/fevers/chills or otherwise. Discussed with podiatry resident at bedside and later Dr. Welch who will be taking the patient in to the OR today. Objective - Vital Signs/Intake and Output Vital Signs (last 24 hours): Temp Pulse Resp BP Pulse Ox 98.9 F 80 20 137/92 H 100 11/08/16 07:30 11/08/16 09:35 11/08/16 07:30 11/08/16 09:35 11/08/16 07:30 Intake and Output: 11/08/16 11/08/16 06:59 18:59 Output Total 575 Balance -575 - Medications Medications: Current Medications Acetylcysteine (Acetylcysteine 20%) 4 ml IH BIDRESP [facility] Last Admin: 11/08/16 07:36 Dose: 4 ml Albuterol/Ipratropium (Duoneb 3 Mg/0.5 Mg (3 Ml) Ud) 3 ml IH [id number] [facility] Last Admin: 11/08/16 07:36 Dose: 3 ml Aspirin (Aspirin) 325 mg GT DAILY [facility] Last Admin: 11/08/16 09:34 Dose: Not Given Docusate Sodium (Colace Liquid) 100 mg GT DAILY [facility] Last Admin: 11/08/16 09:35 Dose: 100 mg Famotidine (Pepcid) 20 mg GT DAILY [facility] Last Admin: 11/08/16 09:37 Dose: 20 mg Linezolid (Zyvox 600mg/300ml D5w) 600 mg in 300 mls @ 200 mls/hr IVPB Q12 PETTY PRN Reason: Protocol Stop: 11/13/16 22:01 Last Admin: 11/07/16 23:41 Dose: 200 mls/hr Cefepime HCl (Maxipime 1gm) 1 gm in 100 mls @ 100 mls/hr IVPB Q12 PETTY PRN Reason: Protocol Last Admin: 11/08/16 09:40 Dose: 100 mls/hr Lisinopril (Zestril) 5 mg GT BID [facility] Last Admin: 11/08/16 09:37 Dose: 5 mg Metoprolol Tartrate (Lopressor) 25 mg GT BID [facility] Last Admin: 11/08/16 09:35 Dose: 25 mg Multivitamins/Vitamin C (Multi-Delyn Liquid) 15 ml PO DAILY [facility] Last Admin: 11/08/16 09:41 Dose: 15 ml Nystatin/Triamcinolone Acetonide (Nystatin/Triamcinolone Cream) 0 ea TOP BID [facility] Last Admin: 11/08/16 09:41 Dose: Not Given Oxychlorosene Sodium (Clorpactin Wcs-90) 2 gm TOP Q12 [facility] Last Admin: 11/08/16 09:34 Dose: Not Given Potassium Chloride (Potassium Chloride Oral Soln) 20 meq PO BID [facility] Last Admin: 11/08/16 09:37 Dose: 20 meq Silver Sulfadiazine (Silvadene 1% 20 Gm) 1 ea TOP BID [facility] Last Admin: 11/08/16 09:37 Dose: Not Given - Labs Labs: 11/07/16 07:00 11/08/16 07:45 PT 11.8 Seconds (9.9-11.8) 11/05/16 16:17 INR 1.09 (0.93-1.08) H 11/05/16 16:17 APTT 30.4 Seconds (23.7-30.8) 11/05/16 16:17 - Constitutional Appears: Non-toxic, No Acute Distress - Head Exam Head Exam: ATRAUMATIC, NORMOCEPHALIC - Eye Exam Eye Exam: EOMI. Normal appearance - Respiratory Exam Respiratory Exam: NORMAL BREATHING PATTERN. absent: Respiratory Distress - GI/Abdominal Exam GI & Abdominal Exam: Soft. absent: Distended, Tenderness - Extremities Exam Additional comments: B/L necrotic heel ulcers, wrapped, dry, no surrounding erythema, however the right hallux looks erythematous and somewhat swollen, multi-podus boots on - Neurological Exam Neurological Exam: Altered, Awake - Skin Skin Exam: Dry, Warm Assessment and Plan - Assessment and Plan (Free Text) Assessment: 81 year old male with an extensive PMH who was admitted for BL heel wounds with VRE Plan: Bone scan still pending read Podiatry following, to OR today Cont IV abx per ID Cont air matress and turn q2 Optimize nutrition, getting G tube feedings Will follow Seen and discussed with Dr. Pryor. Thank you for the pleasure of participating in the care of this patient.
[2016-11-08] MEDS: Linezolid 600 mg in D5W 300 ml 600 MG/300 ML BAG IVPB SCH ×2 (12:23→22:06)
[2016-11-08] MEDS ORDERED: Bupivacaine 0.5% Inj(30mL) ONE (16:02)
[2016-11-08] MEDS ORDERED: Lidocaine 2% Inj (20ml) ONE (16:02)
[2016-11-08] MEDS ORDERED: Midazolam 2 MG/2 ML VIAL ONE (17:27)
--- NOTE | 2016-11-08 17:33 | NM ---
PROCEDURE: Three-phase Body Bone Scan of the lower extremities/ankle and feet HISTORY: eval for Osteo, B/L LE COMPARISON: Comparison is made to the previous study dated 05/26/2016 TECHNIQUE: Following administration of 26.2 miCu of Tc MDP multiplanar whole body images were obtained. FINDINGS: There is a increased blood flow to both ankles and heels. . There is also increased blood flow to the big toe of the right foot. There is hyperemia seen also at the ankles bilaterally and right big toe. The delayed images demonstrate persistent increased radiotracer and tumour mission at the posterior aspect of both ankles at the right midfoot and in the right big toe. The right heel increased delayed uptake has significantly increased compared to the previous exam. IMPRESSION: Re- demonstration of increased blood flow and delayed tracer accumulation at the right big toe. The possibility of osteomyelitis versus severe arthritic changes again should be considered. Interval appearance of increased blood flow hyperemia and delayed uptake at the right heel. Findings may represent osteomyelitis. Increased delayed tracer accumulation at the right midfoot likely due to arthritic changes Re- demonstration of increased blood flow hyperemia and delayed accumulation of the tracer at the left heel. The possibility of chronic osteomyelitis also should be considered.
[2016-11-08] MEDS ORDERED: Gentamicin 80 mg/2mL Inj. ONE (17:39)
--- NOTE | 2016-11-08 18:05 | CP.PCM.PN ---
Subjective - Date & Time of Evaluation Date of Evaluation: 11/08/16 Time of Evaluation: 11:20 - Subjective Subjective: For surgery this afternoon on his feet. No fevers overnight. Objective - Vital Signs/Intake and Output Vital Signs (last 24 hours): Temp Pulse Resp BP Pulse Ox 99 F 71 18 117/66 98 11/08/16 16:10 11/08/16 16:10 11/08/16 16:10 11/08/16 16:10 11/08/16 16:10 Intake and Output: 11/08/16 11/08/16 06:59 18:59 Intake Total 0 Output Total 575 200 Balance -575 -200 - Medications Medications: Current Medications Acetylcysteine (Acetylcysteine 20%) 4 ml IH BIDRESP [facility] Last Admin: 11/08/16 07:36 Dose: 4 ml Albuterol/Ipratropium (Duoneb 3 Mg/0.5 Mg (3 Ml) Ud) 3 ml IH [id number] [facility] Last Admin: 11/08/16 13:39 Dose: 3 ml Aspirin (Aspirin) 325 mg GT DAILY [facility] Last Admin: 11/08/16 09:34 Dose: Not Given Docusate Sodium (Colace Liquid) 100 mg GT DAILY [facility] Last Admin: 11/08/16 09:35 Dose: 100 mg Famotidine (Pepcid) 20 mg GT DAILY [facility] Last Admin: 11/08/16 09:37 Dose: 20 mg Linezolid (Zyvox 600mg/300ml D5w) 600 mg in 300 mls @ 200 mls/hr IVPB Q12 PETTY PRN Reason: Protocol Stop: 11/13/16 22:01 Last Admin: 11/08/16 12:23 Dose: 200 mls/hr Cefepime HCl (Maxipime 1gm) 1 gm in 100 mls @ 100 mls/hr IVPB Q12 PETTY PRN Reason: Protocol Last Admin: 11/08/16 09:40 Dose: 100 mls/hr Lisinopril (Zestril) 5 mg GT BID [facility] Last Admin: 11/08/16 09:37 Dose: 5 mg Metoprolol Tartrate (Lopressor) 25 mg GT BID [facility] Last Admin: 11/08/16 09:35 Dose: 25 mg Multivitamins/Vitamin C (Multi-Delyn Liquid) 15 ml PO DAILY [facility] Last Admin: 11/08/16 09:41 Dose: 15 ml Nystatin/Triamcinolone Acetonide (Nystatin/Triamcinolone Cream) 0 ea TOP BID [facility] Last Admin: 11/08/16 09:41 Dose: Not Given Oxychlorosene Sodium (Clorpactin Wcs-90) 2 gm TOP Q12 [facility] Last Admin: 11/08/16 09:34 Dose: Not Given Potassium Chloride (Potassium Chloride Oral Soln) 20 meq PO BID [facility] Last Admin: 11/08/16 09:37 Dose: 20 meq Silver Sulfadiazine (Silvadene 1% 20 Gm) 1 ea TOP BID [facility] Last Admin: 11/08/16 09:37 Dose: Not Given - Labs Labs: 11/07/16 07:00 11/08/16 07:45 PT 11.8 Seconds (9.9-11.8) 11/05/16 16:17 INR 1.09 (0.93-1.08) H 11/05/16 16:17 APTT 30.4 Seconds (23.7-30.8) 11/05/16 16:17 - Constitutional Appears: Non-toxic, No Acute Distress - Head Exam Head Exam: NORMAL INSPECTION - Neck Exam Neck Exam: absent: Meningismus - Respiratory Exam Respiratory Exam: Decreased Breath Sounds - Cardiovascular Exam Cardiovascular Exam: +S1, +S2 - GI/Abdominal Exam GI & Abdominal Exam: Soft. absent: Tenderness Assessment and Plan - Assessment and Plan (Free Text) Plan: Assessment Dry gangrene of both heels, growing gram negative bacilli and VRE on wound cx, R /O osteomyelitis in a patient with peripheral vascular disease history of aspiration pneumonia, healthcare-associated history of Klebsiella in the urine, consider UTI history of left lower lobe healthcare-associated pneumonia atrial fibrillation HTN peripheral vascular disease history of cerebrovascular accident with left sided carotid artery disease benign prostatic hyperplasia dementia Plan follow up final repeat wound cx results and triple phase bone scan; continue Zyvox and Cefepime (day 2) and follow up results from the OR discussed with Dr. Long
[2016-11-08] MEDS ORDERED: Oxycodone/Acetaminophen 5/325 mg Tab PO PRN ×2 (18:14)
--- NOTE | 2016-11-08 18:14 | PCM.SURG1 ---
Surgeon's Initial Post Op Note - Surgeon's Notes Surgeon: Dr. Welch Director Of Corporate Strategy: Dr. Potter PGY-1 Type of Anesthesia: IV Sedation, Local Anesthesia Administered By: Dr. Benz Pre-Operative Diagnosis: bilateral nonhealing heel eschars/ gangrene Operative Findings: see dictation Post-Operative Diagnosis: same as preop Operation Performed: bilateral heel debridement of necrotic skin and soft tissue Specimen/Specimens Removed: skin and soft tissue Estimated Blood Loss: EBL {In ML}: 5 Blood Products Given: N/A Drains Used: No Drains Post-Op Condition: Good Date of Surgery/Procedure: 11/08/16 Time of Surgery/Procedure: 17:00
[2016-11-08] MEDS ORDERED: Lactated Ringer's 1,000 ML IV SCH (18:36)
--- NOTE | 2016-11-08 18:47 | PN ---
DATE: 11/08/2016 This is a 81-year-old male resting comfortably in bed this morning. PHYSICAL EXAMINATION: VITAL SIGNS: His temp is 98, his blood pressure is 128/64, his pulse is 80, his oxygen saturation is 98% on 2 liters of nasal oxygen. GENERAL: The patient is alert when spoken to. NECK: Supple. HEART: Has an irregular S1, S2 rhythm. ABDOMEN: Soft. There is a feeding PEG in place. EXTREMITIES: Reviewed with podiatry, Dr. Welch, show evidence of gangrenous heels, dry Doppler study at the bedside suggests that there is perfusion. With discussion with podiatry a nd with the family, there will be a managing procedure to debride the areas and continue wound care. The wound cultures are growing Enterobacter cloacae and Klebsiella pneumonia and corynebacterium spe cies. The patient is being followed by infectious disease and he is receiving Maxipime and Zyvox IV. The b one scan, which was performed, is demonstrating increased blood flow and delayed tracer accumulation in the right big toe, the possibility of osteomyelitis versus severe arthritic changes, interval appe arance of increased blood flow, hyperemia and delayed uptake in the right heel, which may represent o steomyelitis. Increased tracer accumulation in the right mid foot likely due to arthritic changes an d an increased blood flow, hyperemia and delayed accumulation tracer in the left heel, the poss ibility of chronic osteomyelitis. These are the interpretations of the radiologist. He is continuin g on his antibiotics at this time. He continues on his PEG feedings with support. He has a living w ill. He is a DNR/DNI. Will continue local wound care as well. The clinical setting and prognosis o f this patient have been discussed with the patient and family and the consultants. We will follow u p the patient's lab work and continue current level of supportive care. Cornelia Long MD cc: [id number] TT: 11/08/2016 18:46:56 Confirmation # [id number] Dictation # [id number] dn
[2016-11-09] MEDS: Oxychlorosene Topical 2 gm Packet TOP SCH ×2 (01:25→13:32)
[2016-11-09] MEDS: Albuterol-Ipratrop 3 mg / 0.5 (3 ml) UD IH SCH ×4 (02:41→20:25)
[2016-11-09] MEDS: Acetylcysteine 20% Inhal Soln (4ml) IH SCH ×2 (07:34→20:25)
[2016-11-09 07:45] LABS: HEMATOCRIT 30.7 % (42.0-52.0); MEAN CORPUSCULAR HEMOGLOBIN 30.3 pg (25.0-35.0); MEAN CORPUSCULAR HGB CONC 30.6 g/dl (31.0-37.0); MEAN PLATELET VOLUME 9.2 fl (7.0-11.0); WHITE BLOOD COUNT 6.1 10^3/ul (4.5-11.0)
[2016-11-09 07:50] LABS: ALKALINE PHOSPHATASE 62 U/L (38-133); ALT/SGPT 33 U/L (7-56); AST/SGOT 30 U/L (15-59); BILIRUBIN,TOTAL 0.5 mg/dL (0.2-1.3); BLOOD UREA NITROGEN 36 mg/dL (7-21); CALCIUM 8.6 mg/dL (8.4-10.5); CARBON DIOXIDE 29 mmol/L (21-33); CHLORIDE 108 mmol/L (95-110); GFR AFRICAN-AMERICAN > 60; GLUCOSE,RANDOM 83 mg/dL (70-110); POTASSIUM 4.3 mmol/L (3.6-5.0)
[2016-11-09 08:15] VITALS: PULSE 70; RESP 18
[2016-11-09 08:20] LABS: SODIUM 142 mmol/L (132-148)
[2016-11-09] MEDS ORDERED: Collagenase 250 Units/gm Ointment(30 gm) TOP SCH (10:00)
--- NOTE | 2016-11-09 10:15 | CP.PCM.PN ---
Subjective - Date & Time of Evaluation Date of Evaluation: 11/09/16 Time of Evaluation: 07:00 - Subjective Subjective: Farooq Malone D.O. PGY-1, General Surgery Progress Note: Dr. Jim Thomas. 81 year old male with an extensive PMH who was admitted for BL heel wounds with VRE. Patient was seen and examined at bedside with surgical team. Patient is non -verbal and appears comfortable. Patient had a debridement of his heel ulcers by podiatry yesterday. Objective - Vital Signs/Intake and Output Vital Signs (last 24 hours): Temp Pulse Resp BP Pulse Ox 97.9 F 70 18 125/74 97 11/09/16 07:30 11/09/16 07:30 11/09/16 07:30 11/09/16 07:30 11/09/16 07:30 Intake and Output: 11/09/16 11/09/16 06:59 18:59 Intake Total 640 Output Total 550 Balance 90 - Medications Medications: Current Medications Acetaminophen (Tylenol 325mg Tab) 650 mg PO Q4H PRN PRN Reason: Pain, Mild (1-3) Acetylcysteine (Acetylcysteine 20%) 4 ml IH BIDRESP [facility] Last Admin: 11/09/16 07:34 Dose: 4 ml Albuterol/Ipratropium (Duoneb 3 Mg/0.5 Mg (3 Ml) Ud) 3 ml IH [id number] [facility] Last Admin: 11/09/16 07:34 Dose: 3 ml Aspirin (Aspirin) 325 mg GT DAILY [facility] Last Admin: 11/08/16 09:34 Dose: Not Given Collagenase (Santyl) 0 gm TOP DAILY [facility] Docusate Sodium (Colace Liquid) 100 mg GT DAILY [facility] Last Admin: 11/08/16 09:35 Dose: 100 mg Famotidine (Pepcid) 20 mg GT DAILY [facility] Last Admin: 11/08/16 09:37 Dose: 20 mg Linezolid (Zyvox 600mg/300ml D5w) 600 mg in 300 mls @ 200 mls/hr IVPB Q12 [facility] PRN Reason: Protocol Stop: 11/13/16 22:01 Last Admin: 11/08/16 22:06 Dose: 200 mls/hr Cefepime HCl (Maxipime 1gm) 1 gm in 100 mls @ 100 mls/hr IVPB Q12 [facility]TY PRN Reason: Protocol Last Admin: 11/08/16 22:02 Dose: 100 mls/hr Lisinopril (Zestril) 5 mg GT BID [facility] Last Admin: 11/08/16 22:02 Dose: 5 mg Metoprolol Tartrate (Lopressor) 25 mg GT BID [facility] Last Admin: 11/08/16 22:01 Dose: 25 mg Multivitamins/Vitamin C (Multi-Delyn Liquid) 15 ml PO DAILY [facility] Last Admin: 11/08/16 09:41 Dose: 15 ml Nystatin/Triamcinolone Acetonide (Nystatin/Triamcinolone Cream) 0 ea TOP BID [facility] Last Admin: 11/08/16 16:00 Dose: Not Given Oxychlorosene Sodium (Clorpactin Wcs-90) 2 gm TOP Q12 [facility] Last Admin: 11/09/16 01:25 Dose: Not Given Oxycodone/Acetaminophen (Percocet 5/325 Mg Tab) 1 tab PO Q4H PRN PRN Reason: Pain, moderate (4-7) Stop: 11/11/16 18:15 Oxycodone/Acetaminophen (Percocet 5/325 Mg Tab) 2 tab PO Q4H PRN PRN Reason: Pain, severe (8-10) Stop: 11/11/16 18:15 Potassium Chloride (Potassium Chloride Oral Soln) 20 meq PO BID [facility] Last Admin: 11/08/16 09:37 Dose: 20 meq Silver Sulfadiazine (Silvadene 1% 20 Gm) 1 ea TOP BID [facility] Last Admin: 11/08/16 09:37 Dose: Not Given - Labs Labs: 11/09/16 07:00 11/09/16 07:00 PT 11.8 Seconds (9.9-11.8) 11/05/16 16:17 INR 1.09 (0.93-1.08) H 11/05/16 16:17 APTT 30.4 Seconds (23.7-30.8) 11/05/16 16:17 - Constitutional Appears: Non-toxic, No Acute Distress, non-verbal - Head Exam Head Exam: ATRAUMATIC, NORMOCEPHALIC - Eye Exam Eye Exam: EOMI. Normal appearance - Respiratory Exam Respiratory Exam: NORMAL BREATHING PATTERN. absent: Respiratory Distress - GI/Abdominal Exam GI & Abdominal Exam: Soft. absent: Distended, Tenderness - Extremities Exam Additional comments: s/p debridement of both heel ulcers with podiatry, bandaged , C/D/I, in heel protectors, right hallux still somewhat inflamed and erythematous, otherwise no changes - Neurological Exam Neurological Exam: Altered, Awake, nonverbal - Skin Skin Exam: Dry, Warm Assessment and Plan - Assessment and Plan (Free Text) Assessment: 81 year old male with an extensive PMH who was admitted for BL heel wounds with VRE. Plan: POD#1 for heel debridement with podiatry, under their management No surgical intervention on our end at this time We will continue to follow peripherally, please recall as needed Will discuss with attending physician. Thank you for the pleasure of participating in the care of this patient.
[2016-11-09] MEDS: Cefepime 1gm in NS 100ml 1 GM/100 ML BAG IVPB SCH (11:10)
[2016-11-09] MEDS: Potassium Chloride 20 mEq/15 ml LIQ UD PO SCH ×2 (11:11→17:46)
[2016-11-09] MEDS: Multi Vitamins 15 mL UD Oral Solution PO SCH (11:12)
[2016-11-09] MEDS: Linezolid 600 mg in D5W 300 ml 600 MG/300 ML BAG IVPB SCH (12:42)
[2016-11-09] MEDS ORDERED: Lidocaine 2% Inj (20ml) ONE (13:46)
--- NOTE | 2016-11-09 14:54 | OP ---
PROCEDURE DATE: 11/08/2016 SURGEON: Dr. Welch. SALES OPERATIONS SPECIALIST: Dr. Schmidt, PGY-1. INSPECTION CLERK: Dr. Benz. ANESTHESIA: IV sedation with local. PREOPERATIVE DIAGNOSIS: Bilateral nonhealing wounds to the heels of the plantar foot. POSTOPERATIVE DIAGNOSIS: Bilateral nonhealing wounds to the heels of the plantar foot. PROCEDURE PERFORMED: Bilateral foot debridement of heel eschars. INDICATIONS: The patient is a 81-year-old male with the above diagnoses. The patient signed the con sent after careful explanation of risks, benefits, complications, and alternatives for surgical proce dure. No guarantees were given nor implied. PREPARATION: The patient was brought into the operating room and placed on the operating room table in a supine position. Timeout was performed for identification of the correct patient and procedure. After induction of IV sedation, the patient received a total of 18 mL of 0.5% Marcaine plain and 2. 2% lidocaine plain, 9 mL in each foot in a local block type fashion to each plantar heel. Once local anesthesia was achieved, both feet were then prepped and draped in a normal sterile manner. No tour niquet was used during the procedure. DESCRIPTION OF PROCEDURE: Attention was then directed to the plantar aspect of the right heel where a necrotic gangrenous eschar, measuring 5 cm x 5 cm was noted. Using a #15 blade, the eschar was exc isionally debrided and passed off the surgical field. All necrotic and nonviable tissue was excision ally debrided until healthy granular bleeding was noted. The same procedure was performed to the lef t heel where a 4.5 x 4 cm necrotic eschar was noted. With a 15 blade, the circumferential of the esc mary was incised and the necrotic eschar was excisionally debrided and removed from the surgical field and passed to pathology. All nonviable tissue was excised until healthy granular tissue was noted. Next, using a pulse lavage, 3 liters of solution with gentamicin, both heels were copiously flushed. Both heels were then dressed with Xeroform, dry sterile dressing, ABDs, and Kerlix. POSTOPERATIVE CONDITION: The patient tolerated the anesthesia and procedure well, and was escorted t o the recovery room with vital signs stable and neurovascular status intact to both feet. The patien t will be seen and followed by Dr. Welch while the patient remains in the hospital. SHANELL SCHMIDT DPM Katie Welch DPM cc: [id number] TT: 11/09/2016 14:53:56 bn
--- NOTE | 2016-11-09 16:04 | CP.PCM.PN ---
<Gabriela Potter - Last Filed: 11/09/16 16:01> Subjective - Date & Time of Evaluation Date of Evaluation: 11/09/16 Time of Evaluation: 16:01 - Subjective Subjective: 81 y/o male seen at bedside with attending Dr. Farris 1 day s/p bilateral heel debridements. Patient is alert and awake but not oriented. Patient is severely contracted. Offloading boots are intact to bilateral lower extremities. Patient appears in NAD Objective - Vital Signs/Intake and Output Vital Signs (last 24 hours): Temp Pulse Resp BP Pulse Ox 97.9 F 70 18 125/74 97 11/09/16 07:30 11/09/16 11:12 11/09/16 07:30 11/09/16 11:12 11/09/16 07:30 Intake and Output: 11/09/16 11/09/16 06:59 18:59 Intake Total 640 Output Total 550 300 Balance 90 -300 - Medications Medications: Current Medications Acetaminophen (Tylenol 325mg Tab) 650 mg PO Q4H PRN PRN Reason: Pain, Mild (1-3) Acetylcysteine (Acetylcysteine 20%) 4 ml IH BIDRESP [facility] Last Admin: 11/09/16 07:34 Dose: 4 ml Albuterol/Ipratropium (Duoneb 3 Mg/0.5 Mg (3 Ml) Ud) 3 ml IH [id number] [facility] Last Admin: 11/09/16 13:23 Dose: Not Given Aspirin (Aspirin) 325 mg GT DAILY [facility] Last Admin: 11/09/16 11:11 Dose: 325 mg Collagenase (Santyl) 0 gm TOP DAILY [facility] Docusate Sodium (Colace Liquid) 100 mg GT DAILY [facility] Last Admin: 11/09/16 11:12 Dose: 100 mg Famotidine (Pepcid) 20 mg GT DAILY [facility] Last Admin: 11/09/16 11:13 Dose: 20 mg Linezolid (Zyvox 600mg/300ml D5w) 600 mg in 300 mls @ 200 mls/hr IVPB Q12 PETTY PRN Reason: Protocol Stop: 11/13/16 22:01 Last Admin: 11/09/16 12:42 Dose: 200 mls/hr Cefepime HCl (Maxipime 1gm) 1 gm in 100 mls @ 100 mls/hr IVPB Q12 PETTY PRN Reason: Protocol Last Admin: 11/09/16 11:10 Dose: 100 mls/hr Lisinopril (Zestril) 5 mg GT BID [facility] Last Admin: 11/09/16 11:12 Dose: 5 mg Metoprolol Tartrate (Lopressor) 25 mg GT BID [facility] Last Admin: 11/09/16 11:13 Dose: 25 mg Multivitamins/Vitamin C (Multi-Delyn Liquid) 15 ml PO DAILY [facility] Last Admin: 11/09/16 11:12 Dose: 15 ml Nystatin/Triamcinolone Acetonide (Nystatin/Triamcinolone Cream) 0 ea TOP BID [facility] Last Admin: 11/08/16 16:00 Dose: Not Given Oxychlorosene Sodium (Clorpactin Wcs-90) 2 gm TOP Q12 [facility] Last Admin: 11/09/16 13:32 Dose: Not Given Oxycodone/Acetaminophen (Percocet 5/325 Mg Tab) 1 tab PO Q4H PRN PRN Reason: Pain, moderate (4-7) Stop: 11/11/16 18:15 Oxycodone/Acetaminophen (Percocet 5/325 Mg Tab) 2 tab PO Q4H PRN PRN Reason: Pain, severe (8-10) Stop: 11/11/16 18:15 Potassium Chloride (Potassium Chloride Oral Soln) 20 meq PO BID [facility] Last Admin: 11/09/16 11:11 Dose: 20 meq Silver Sulfadiazine (Silvadene 1% 20 Gm) 1 ea TOP BID [facility] Last Admin: 11/08/16 09:37 Dose: Not Given - Labs Labs: 11/09/16 07:00 11/09/16 07:00 PT 11.8 Seconds (9.9-11.8) 11/05/16 16:17 INR 1.09 (0.93-1.08) H 11/05/16 16:17 APTT 30.4 Seconds (23.7-30.8) 11/05/16 16:17 - Constitutional Appears: Well, Non-toxic, No Acute Distress - Extremities Exam Additional comments: Vasc: dopplerable pedal pulses bilaterally, CFT < 5 sec to all digits neuro: unable to assess derm:full thickness ulcerations to heels bilaterally, granular base, no malodor , no probe to bone, no underlying abscess formation ortho: severely contracted - Neurological Exam Neurological Exam: Alert, Awake, Oriented x3 - Psychiatric Exam Psychiatric exam: Normal Affect, Normal Mood Assessment and Plan - Assessment and Plan (Free Text) Assessment: 81 y/o male seen at bedside for bilateral heel ulcerations 1 day s/p bilateral heel debridements. Plan: patient evaluated and chart reviewed seen at bedside with attending Dr. Farris labs and vitals reviewed applied santyl, xeroform, DSD to heels bilaterally continue IV abx as per ID podiatry will continue to follow patient stable from podiatry standpoint patient instructed to follow up in wound care center upon discharge <Jose Angel Farris - Last Filed: 11/11/16 11:23> Objective - Vital Signs/Intake and Output Vital Signs (last 24 hours): Temp Pulse Resp BP Pulse Ox 97.5 F L 70 18 128/73 96 11/09/16 16:00 11/09/16 16:00 11/09/16 16:00 11/09/16 16:00 11/09/16 16:00 - Labs Labs: 11/09/16 07:00 11/09/16 07:00 PT 11.8 Seconds (9.9-11.8) 11/05/16 16:17 INR 1.09 (0.93-1.08) H 11/05/16 16:17 APTT 30.4 Seconds (23.7-30.8) 11/05/16 16:17 Attending/Attestation - Attestation I have personally seen and examined this patient.: Yes I have fully participated in the care of the patient.: Yes I have reviewed all pertinent clinical information, including history, physical exam and plan: Yes
[2016-11-09 17:33] VITALS: BP 128/73; TEMP 97.5; O2SAT 96
--- NOTE | 2016-11-09 18:17 | VASCULAR ---
PROCEDURE: Ultrasound and fluoroscopically placed left upper extremity PICC line. HISTORY: Sepsis. Chronic heel ulcers. Long-term IV antibiotics. Needs PICC line. PHYSICIAN(S): Justen Kenney MD. TECHNIQUE: The relative risks and indications of the procedure were explained to the patient's and consent obtained. The patient was placed supine on the arteriogram table and the left arm prepped and draped in the usual sterile fashion. A tourniquet was applied to the left axilla. 1% Xylocaine was used to anesthetize the skin and soft tissues at the puncture site above the elbow. The left basilic vein was punctured under direct ultrasound guidance with a micropuncture set. A 0.018 guidewire was advanced centrally and used to measure the length to the SVC/RA junction. A 5 Maori single-lumen PICC line 50 cm long was advanced to the SVC/RA junction. The catheter was flushed and secured. The patient tolerated the procedure well. IMPRESSION: 1. Ultrasound and fluoroscopically placed left upper extremity PICC line. A 5 Maori single-lumen PICC line 50 cm long was advanced to the SVC/RA junction.
--- NOTE | 2016-11-09 20:03 | CP.PCM.PN ---
Subjective - Date & Time of Evaluation Date of Evaluation: 11/09/16 Time of Evaluation: 11:40 - Subjective Subjective: Comfortable, not in distress, afebrile. Objective - Vital Signs/Intake and Output Vital Signs (last 24 hours): Temp Pulse Resp BP Pulse Ox 97.5 F L 70 18 128/73 96 11/09/16 16:00 11/09/16 16:00 11/09/16 16:00 11/09/16 16:00 11/09/16 16:00 Intake and Output: 11/09/16 11/10/16 18:59 06:59 Output Total 300 Balance -300 - Medications Medications: Current Medications Acetaminophen (Tylenol 325mg Tab) 650 mg PO Q4H PRN PRN Reason: Pain, Mild (1-3) Acetylcysteine (Acetylcysteine 20%) 4 ml IH BIDRESP [facility] Last Admin: 11/09/16 07:34 Dose: 4 ml Albuterol/Ipratropium (Duoneb 3 Mg/0.5 Mg (3 Ml) Ud) 3 ml IH [id number] [facility] Last Admin: 11/09/16 13:23 Dose: Not Given Aspirin (Aspirin) 325 mg GT DAILY [facility] Last Admin: 11/09/16 11:11 Dose: 325 mg Collagenase (Santyl) 0 gm TOP DAILY [facility] Docusate Sodium (Colace Liquid) 100 mg GT DAILY [facility] Last Admin: 11/09/16 11:12 Dose: 100 mg Famotidine (Pepcid) 20 mg GT DAILY [facility] Last Admin: 11/09/16 11:13 Dose: 20 mg Linezolid (Zyvox 600mg/300ml D5w) 600 mg in 300 mls @ 200 mls/hr IVPB Q12 PETTY PRN Reason: Protocol Stop: 11/13/16 22:01 Last Admin: 11/09/16 12:42 Dose: 200 mls/hr Cefepime HCl (Maxipime 1gm) 1 gm in 100 mls @ 100 mls/hr IVPB Q12 PETTY PRN Reason: Protocol Last Admin: 11/09/16 11:10 Dose: 100 mls/hr Lisinopril (Zestril) 5 mg GT BID [facility] Last Admin: 11/09/16 17:50 Dose: 5 mg Metoprolol Tartrate (Lopressor) 25 mg GT BID [facility] Last Admin: 11/09/16 17:50 Dose: 25 mg Multivitamins/Vitamin C (Multi-Delyn Liquid) 15 ml PO DAILY [facility] Last Admin: 11/09/16 11:12 Dose: 15 ml Nystatin/Triamcinolone Acetonide (Nystatin/Triamcinolone Cream) 0 ea TOP BID [facility] Last Admin: 11/08/16 16:00 Dose: Not Given Oxychlorosene Sodium (Clorpactin Wcs-90) 2 gm TOP Q12 [facility] Last Admin: 11/09/16 13:32 Dose: Not Given Oxycodone/Acetaminophen (Percocet 5/325 Mg Tab) 1 tab PO Q4H PRN PRN Reason: Pain, moderate (4-7) Stop: 11/11/16 18:15 Oxycodone/Acetaminophen (Percocet 5/325 Mg Tab) 2 tab PO Q4H PRN PRN Reason: Pain, severe (8-10) Stop: 11/11/16 18:15 Potassium Chloride (Potassium Chloride Oral Soln) 20 meq PO BID [facility] Last Admin: 11/09/16 17:46 Dose: 20 meq Silver Sulfadiazine (Silvadene 1% 20 Gm) 1 ea TOP BID [facility] Last Admin: 11/08/16 09:37 Dose: Not Given - Labs Labs: 11/09/16 07:00 11/09/16 07:00 PT 11.8 Seconds (9.9-11.8) 11/05/16 16:17 INR 1.09 (0.93-1.08) H 11/05/16 16:17 APTT 30.4 Seconds (23.7-30.8) 11/05/16 16:17 - Constitutional Appears: Non-toxic, No Acute Distress - Head Exam Head Exam: NORMAL INSPECTION - Neck Exam Neck Exam: absent: Meningismus - Respiratory Exam Respiratory Exam: Decreased Breath Sounds - Cardiovascular Exam Cardiovascular Exam: +S1, +S2 - GI/Abdominal Exam GI & Abdominal Exam: Soft. 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 bacilli and VRE on wound cx, R /O osteomyelitis in a patient with peripheral vascular disease S/P debridement history of aspiration pneumonia, healthcare-associated history of Klebsiella in the urine, consider UTI history of left lower lobe healthcare-associated pneumonia atrial fibrillation HTN peripheral vascular disease history of cerebrovascular accident with left sided carotid artery disease benign prostatic hyperplasia dementia Plan follow up final repeat wound cx results (from the OR); triple phase bone scan suggests acute osteomyelitis; continue Zyvox and Cefepime (day 3) and follow up results from the OR discussed with Dr. Long
== END 2016-11-09 19:30 | DRG 264 ==
LOC: ED 12:54 → ERH 14:05 → 5RSO 18:46
PROVIDERS: ADMIT Internal Medicine; ATTEND Internal Medicine
PROC: 0JBQ0ZZ Excision of Right Foot Subcutaneous Tissue and Fascia, Open Approach (ICD-10-PCS; 2016-11-08)
PROC: 0JBR0ZZ Excision of Left Foot Subcutaneous Tissue and Fascia, Open Approach (ICD-10-PCS; principal; 2016-11-08 17:00)
PROC: 02HV33Z Insertion of Infusion Device into Superior Vena Cava, Percutaneous Approach (ICD-10-PCS; 2016-11-09)
PROC: B54NZZA Ultrasonography of Left Upper Extremity Veins, Guidance (ICD-10-PCS; 2016-11-09)
DX: I96 Gangrene, not elsewhere classified (principal); L97.419 Non-pressure chronic ulcer of right heel and midfoot with unspecified severity; L97.429 Non-pressure chronic ulcer of left heel and midfoot with unspecified severity; I11.0 Hypertensive heart disease with heart failure; I50.9 Heart failure, unspecified; R13.10 Dysphagia, unspecified; I48.91 Unspecified atrial fibrillation; J44.9 Chronic obstructive pulmonary disease, unspecified; F01.50 Vascular dementia, unspecified severity, without behavioral disturbance, psychotic disturbance, mood disturbance, and anxiety; Z66 Do not resuscitate; I73.9 Peripheral vascular disease, unspecified; M21.372 Foot drop, left foot; M21.371 Foot drop, right foot; B95.2 Enterococcus as the cause of diseases classified elsewhere; Z16.21 Resistance to vancomycin; N40.0 Benign prostatic hyperplasia without lower urinary tract symptoms; B96.89 Other specified bacterial agents as the cause of diseases classified elsewhere; B96.1 Klebsiella pneumoniae [K. pneumoniae] as the cause of diseases classified elsewhere; M51.86 Other intervertebral disc disorders, lumbar region; Z93.1 Gastrostomy status; Z86.73 Personal history of transient ischemic attack (TIA), and cerebral infarction without residual deficits; Z87.01 Personal history of pneumonia (recurrent); Z79.82 Long term (current) use of aspirin; Z87.440 Personal history of urinary (tract) infections

== ENCOUNTER 2016-11-23 12:45 | Inpatient (IN) | payer MEDICARE, OTHER ==
[2016-11-23 12:45] VITALS: PULSE 52
[2016-11-23 13:02] VITALS: BMI 24.3
[2016-11-23 14:00] LABS: ALBUMIN 2.7 g/dL (3.0-4.8); ALT/SGPT 31 U/L (7-56); AST/SGOT 23 U/L (15-59); BLOOD UREA NITROGEN 32 mg/dL (7-21); CALCIUM 8.2 mg/dL (8.4-10.5); GFR AFRICAN-AMERICAN > 60; GFR NON-AFRICAN AMERICAN > 60
--- NOTE | 2016-11-23 14:04 | ED PDOC ---
Arrival/HPI - General Chief Complaint: Medical Clearance Time Seen by Provider: 11/23/16 13:25 Historian: Jail EM Caveat: Other (non verbal at baseline) - History of Present Illness Narrative History of Present Illness (Text): 11/23/16 13:25 A 81 year old male is sent into the emergency department from [facility]. According to the [facility] the patient "looks edematous." History was obtained from patient's PMD, who states the patient does not appear edematous to him. HPI and ROS limited because patient is non-verbal at baseline. Patient is a DNR/DNI. PMD: Dr. Long Time/Duration: Prior to Arrival Symptom Onset: Sudden Symptom Course: Unchanged Quality: Other Modifying Factors (Text): None Context: Other (fci) Associated Symptoms (Text): None Past Medical History - Provider Review Nursing Documentation Reviewed: Yes - Infectious Disease Hx of Infectious Diseases: None - Tetanus Immunization Tetanus Immunization: Unknown - Cardiac Hx Congestive Heart Failure: Yes Hx Hypertension: Yes - Pulmonary Hx Bronchitis: Yes Hx Pneumonia: Yes - Neurological HX Cerebrovascular Accident: Yes - HEENT Hx HEENT Disorder: No - Renal Hx Renal Disorder: No - Endocrine/Metabolic Hx Endocrine Disorders: No - Hematological/Oncological Hx Blood Transfusions: Yes Hx Blood Transfusion Reaction: No - Integumentary Hx Dermatological Disorder: Yes Other/Comment: buttocks bright red skin no openings, b/l groin red skin,5cm x 3cm r heel dry black wound with red flakey skin, 6cm x 3cm black dry skin and dry , ble multiple skin discolorations and dry flakey skin, red raised rash to chest neck shoulders and arms, multiple age spots to b/l arms, small red spots to face and light skin discoloration to r hinduism, skin red on chest under chin, 1cm round lump to left forehead, r great toe red swollen with small 0.2cm red wound, dry blood to r 4th toe, multiple dry nodules to ble - Musculoskeletal/Rheumatological Hx Musculoskeletal Disorders: Yes Hx Back Pain: Yes Hx Degenerative Joint Disease: Yes Hx Falls: Yes (past) Hx Fractures: Yes (pelvis) Hx Osteoarthritis: Yes Hx Spinal Stenosis: Yes Hx Unsteady Gait: Yes (left leg contracted) - Gastrointestinal Hx Gastrointestinal Disorders: Yes (g tube 06/30/2016) Hx Gastroesophageal Reflux: Yes Other/Comment: incontinent of stool - Genitourinary/Gynecological Hx Genitourinary Disorders: Yes Hx Hematuria: Yes Hx Incontinence: Yes Hx Prostate Problems: Yes (bph) Hx Urinary Tract Infection: Yes - Psychiatric Hx Anxiety: Yes Hx Depression: Yes Hx Emotional Abuse: No Hx Physical Abuse: No Hx Substance Use: No - Past Surgical History Past Surgical History: Non-Contributing - Surgical History Hx Cardiac Catheterization: Yes (with stents) Hx Coronary Stent: Yes (x8) Other/Comment: tonsilectomy, laminectomy - Anesthesia Hx Anesthesia Reactions: No Hx Malignant Hyperthermia: No - Suicidal Assessment Feels Threatened In Home Enviroment: No Family/Social History - Physician Review Nursing Documentation Reviewed: Yes Family/Social History: Unknown Family HX Smoking Status: Unknown If Ever Smoked Hx Alcohol Use: No Hx Substance Use: No Hx Substance Use Treatment: No Allergies/Home Meds Allergies/Adverse Reactions: Allergies No Known Allergies Allergy (Verified 11/23/16 12:51) Home Medications: Home Meds Medication Instructions Recorded Confirmed Aspirin 325 mg GT DAILY 08/15/16 11/23/16 Docusate Sodium 100 mg GT DAILY 08/15/16 11/23/16 Famotidine [Pepcid] 20 mg GT DAILY 08/15/16 11/23/16 Lisinopril [Zestril] 5 mg GT BID 08/15/16 11/23/16 Multivitamin [Men's Multi-Vitamin] 1 mg GT DAILY 08/15/16 11/23/16 Review of Systems - Review of Systems Systems not reviewed;Unavailable: Other (non verbal at baseline) Physical Exam - Physical Exam Narrative Physical Exam (Text): The patient is non-verbal and appears contracted. Head: Present: Atraumatic, Normocephalic Pupils: Present: PERRL Extraocular Muscles: Present: EOMI Conjunctiva: Present: Normal Mouth: Present: Moist Mucous Membranes Respiratory/Chest: Present: Good Air Exchange. No: Respiratory Distress, Accessory Muscle Use, Tachypneic Cardiovascular: Present: Irregular, Normal S1, S2, Peripheral Pulses Present. No: Murmurs Rectal: Brown stool, Guaiac negative. Female missile pad mechanic (Scribe - Dimpal Awad) present. Abdomen: Present: Normal Bowel Sounds, No: Tenderness, Peritoneal Signs, Rebound, Guarding, Distention Back: Present: No: Midline Tenderness, Paraspinal Tenderness Upper Extremity: No: Cyanosis, Edema Lower Extremity: No: Edema Skin: Present: Warm, Dry, Normal Color. No: Rashes Lymphatic: Present: OX3, NI, NC Psychiatric: Present: Awake and alert. Vital Signs Reviewed: Yes Vital Signs Temp Pulse Resp BP Pulse Ox 11/23/16 15:08 133/70 11/23/16 14:44 76 16 133/70 100 11/23/16 12:46 98.8 F 96 H 17 138/90 100 Temperature: Afebrile Blood Pressure: Normal Pulse: Irregular Respiratory Rate: Normal Appearance: Positive for: Non-Toxic Pain Distress: None Mental Status: No: Confused, Agitated, Lethargic, Comatose - Systems Exam Cardiovascular: Present: Irregular Rhythm Medical Decision Making ED Course and Treatment: 11/23/16 13:25 Impression: A 81 year old male sent in for "looking edematous." No acute PE findings. Plan: -- EKG -- Chest X-ray -- Labs -- Reassess and disposition Progress Notes: EKG: Ordered, reviewed, and independently interpreted the EKG. Rate : 74 BPM Rhythm : Atrial fibrillation Interpretation : Right bundle branch block. Interpreted by me. 11/23/16 14:[address] Long, in detail, who states the patient is DNR/DNI. He reports he saw and examined the patient earlier. He states to transfuse the patient with 2 units of pack red blood cells and administer lasix for CHF. Dr. Long says to admit the patient to Telemetry under his services. Dr. Long mentions the patient , [place], will call the emergency department to give verbal consent for blood transfusion. Chest xray Impression: As read by me, shows cardiomegaly; left picc line in place; increase vascular congestion. 11/23/16 15:06 Hb low, guaiac negative RN asked to give lasix now and another 20 btw 1st and second U PRBCs pts gave telephone consent to RN - Critical Care Critical Care Minutes: 30 minutes - Lab Interpretations Lab Results: 11/23/16 13:45 11/23/16 13:45 Lab Results 11/23/16 13:45: Sodium 135, Potassium 3.4 L, Chloride 96 L, Carbon Dioxide 34 H , Anion Gap 8 L, BUN 32 H, Creatinine 0.7, Est GFR ( Amer) > 60, Est GFR (Non-Af Amer) > 60, Random Glucose 77, Calcium 8.2 L, Total Bilirubin 0.5, AST 23, ALT 31, Alkaline Phosphatase 59, Lactate Dehydrogenase 438, Total Creatine Kinase 49, Troponin I 0.01 D, NT-Pro-B Natriuret Pep 50204 H, Total Protein 5.5 L, Albumin 2.7 L, Globulin 2.8, Albumin/Globulin Ratio 1.0 L 11/23/16 13:45: PT 12.5 H, INR 1.16 H, APTT 31.0 H 11/23/16 13:45: WBC 4.2 L D, RBC 2.35 L, Hgb 7.4 L D, Hct 23.0 L, MCV 97.9, MCH 31.5, MCHC 32.2, RDW 16.1 H, Plt Count 143, MPV 9.1, Gran % 72.0 H, Lymph % ( Auto) 15.4 L, Bacon % (Auto) 10.2 H, Eos % (Auto) 1.9, Baso % (Auto) 0.5, Gran # 3.03, Lymph # 0.7 L, Bacon # 0.4, Eos # 0.1, Baso # 0.02 I have reviewed the lab results: Yes - RAD Interpretation Radiology Orders: 11/23/16 13:19 CHEST PORTABLE [RAD] Stat - Medication Orders Current Medication Orders: Furosemide (Lasix) 20 mg IVP STAT PETTY Potassium Chloride (Potassium Chloride 20 Meq/100 Ml) 20 meq in 100 mls @ 50 mls/hr IVPB ONCE ONE Stop: 11/23/16 17:36 Last Admin: 11/23/16 15:47 Dose: 50 mls/hr Discontinued Medications Furosemide (Lasix) 20 mg IVP STAT STA Stop: 11/23/16 14:47 Last Admin: 11/23/16 15:08 Dose: 20 mg - Scribe Statement The provider has reviewed the documentation as recorded by the Sandy Aiken training under Dimpal Awad All medical record entries made by the Sandy were at my direction and personally dictated by me. I have reviewed the chart and agree that the record accurately reflects my personal performance of the history, physical exam, medical decision making, and the department course for this patient. I have also personally directed, reviewed, and agree with the discharge instructions and disposition. Disposition/Present on Arrival - Present on Arrival Any Indicators Present on Arrival: No History of DVT/PE: No History of Uncontrolled Diabetes: No Urinary Catheter: Yes (inserted in ed) History of Decub. Ulcer: No History Surgical Site Infection Following: None - Disposition Have Diagnosis and Disposition been Completed?: Yes Diagnosis: Congestive heart failure Disposition: HOSPITALIZED Disposition Time: 14:45 Patient Problems: Current Active Problems Problem Status Onset Congestive heart failure Acute Condition: FAIR
[2016-11-23 14:07] LABS: BASO # 0.02 K/mm3 (0.0-2.0); BASO % 0.5 % (0.0-3.0); EOS # 0.1 (0.0-0.7); EOS % 1.9 % (1.5-5.0); GRAN # 3.03 (1.4-6.5); LYMPH # 0.7 (1.2-3.4); LYMPH % 15.4 % (22.0-35.0); MEAN CELL VOLUME 97.9 fL (80.0-105.0); MEAN CORPUSCULAR HEMOGLOBIN 31.5 pg (25.0-35.0); MEAN CORPUSCULAR HGB CONC 32.2 g/dl (31.0-37.0); MEAN PLATELET VOLUME 9.1 fl (7.0-11.0); MONO # 0.4 (0.1-0.6); MONO % 10.2 % (1.0-6.0); PLATELET COUNT 143 10^3/uL (120.0-450.0); RBC 2.35 10^6/uL (3.5-6.1); RED CELL DISTRIBUTION WIDTH 16.1 % (11.5-14.5); WHITE BLOOD COUNT 4.2 10^3/ul (4.5-11.0)
[2016-11-23 14:09] LABS: INR 1.16 (0.93-1.08); PROTHROMBIN TIME 12.5 Seconds (9.9-11.8)
[2016-11-23 14:10] LABS: B-TYPE NATRIURETIC PEPTIDE 10900 pg/mL (0-450); HEMOGLOBIN 7.4 gm/dL (14.0-18.0)
[2016-11-23 14:13] LABS: TROPONIN I 0.01 ng/mL
[2016-11-23 17:20] LABS: % IRON SATURATION 27 % (20-55); IRON 74 ug/dL (45-180); TOTAL IRON BINDING CAPACITY 269 ug/dL (261-462)
--- NOTE | 2016-11-23 17:40 | RAD ---
HISTORY: cough COMPARISON: 11/05/2016 FINDINGS: LUNGS: No active pulmonary disease. PLEURA: No significant pleural effusion identified, no pneumothorax apparent. CARDIOVASCULAR: Mild cardiomegaly. Left PICC catheter terminates at the level of the cavoatrial junction. OSSEOUS STRUCTURES: No significant abnormalities. VISUALIZED UPPER ABDOMEN: Normal. OTHER FINDINGS: None. IMPRESSION: No active disease. Left PICC catheter noted. Termination at the level of the cavoatrial junction.
[2016-11-23] MEDS: Acetylcysteine 20% Inhal Soln (4ml) IH SCH (21:31)
[2016-11-23] MEDS: Albuterol-Ipratrop 3 mg / 0.5 (3 ml) UD IH SCH (21:31)
[2016-11-24] MEDS: Albuterol-Ipratrop 3 mg / 0.5 (3 ml) UD IH SCH ×4 (02:45→20:17)
[2016-11-24 06:46] LABS: URINE BILIRUBIN NEGATIVE (NEGATIVE); URINE BLOOD SMALL (NEGATIVE); URINE GLUCOSE (UA) NEGATIVE (NEGATIVE); URINE LEUKOCYTE ESTERASE LARGE Leu/uL (NEGATIVE); URINE NITRATE NEGATIVE (NEGATIVE); URINE PROTEIN TRACE mg/dL (<30 mg/dL); URINE UROBILINOGEN 0.2 E.U./dL (<1 E.U./dL)
[2016-11-24 07:07] LABS: BASO # 0.01 K/mm3 (0.0-2.0); BASO % 0.3 % (0.0-3.0); EOS # 0.1 (0.0-0.7); EOS % 2.9 % (1.5-5.0); GRAN # 2.48 (1.4-6.5); GRAN % 73.2 % (50.0-68.0); LYMPH # 0.4 (1.2-3.4); LYMPH % 11.5 % (22.0-35.0); MEAN CELL VOLUME 93.5 fL (80.0-105.0); MEAN CORPUSCULAR HEMOGLOBIN 30.1 pg (25.0-35.0); MEAN CORPUSCULAR HGB CONC 32.2 g/dl (31.0-37.0); MEAN PLATELET VOLUME 9.1 fl (7.0-11.0); MONO # 0.4 (0.1-0.6); MONO % 12.1 % (1.0-6.0); PLATELET COUNT 127 10^3/uL (120.0-450.0); RBC 3.09 10^6/uL (3.5-6.1); RED CELL DISTRIBUTION WIDTH 17.9 % (11.5-14.5); WHITE BLOOD COUNT 3.4 10^3/ul (4.5-11.0)
[2016-11-24 07:22] LABS: HEMOGLOBIN 9.3 gm/dL (14.0-18.0); URINE APPEARANCE CLOUDY (CLEAR); URINE COLOR YELLOW (YELLOW)
[2016-11-24 07:26] LABS: BLOOD UREA NITROGEN 33 mg/dL (7-21); CALCIUM 8.3 mg/dL (8.4-10.5); GFR AFRICAN-AMERICAN > 60; GFR NON-AFRICAN AMERICAN > 60
[2016-11-24 07:30] LABS: URINE BACTERIA MANY (NEG); URINE EPITHELIAL CELLS 0 - 2 /hpf (0-5); URINE WBC TNTC /hpf (0-6)
[2016-11-24] MEDS: Acetylcysteine 20% Inhal Soln (4ml) IH SCH ×2 (07:32→20:17)
[2016-11-24] MEDS ORDERED: Vancomycin 1gm in NS 250ml 1 GM/250 ML BAG IVPB STA (08:28)
[2016-11-24] MEDS: Meropenem 1g/NS 100mL IVPB 1 GM/100 ML PIGGYBACK IVPB SCH ×3 (09:03→21:46)
--- NOTE | 2016-11-24 10:33 | CARD ---
APPROVED REPORT EKG Measurement Heart [id number] <Conclusion> Atrial fibrillation Right bundle branch block NSSTW changes
--- NOTE | 2016-11-24 10:58 | CP.PCM.CON ---
<Bisi Serrano - Last Filed: 11/24/16 10:52> History of Present Illness - History of Present Illness History of Present Illness: 81 year old male with PMHx including altered mental status, sepsis, foot drop b/ l, OM of the left foot,UTI, CHF, Afib, TIA, dementia, BPH, was seen at bedside with attending, Dr. Welch regarding b/l heel ulcers. Patient had offloading boots to heel feet b/l and dressings to his feet b/l. Patient appears in NAD. Patients left leg is severely contracted. Past Patient History - Infectious Disease Hx of Infectious Diseases: None - Tetanus Immunizations Tetanus Immunization: Unknown - Past Medical History & Family History Past Medical History?: Yes - Past Social History Smoking Status: Never Smoked - CARDIAC Hx Congestive Heart Failure: Yes Hx Hypertension: Yes - PULMONARY Hx Bronchitis: Yes Hx Pneumonia: Yes - NEUROLOGICAL HX Cerebrovascular Accident: Yes - HEENT Hx HEENT Problems: No - RENAL Hx Chronic Kidney Disease: No - ENDOCRINE/METABOLIC Hx Endocrine Disorders: No - HEMATOLOGICAL/ONCOLOGICAL Hx Blood Disorders: Yes Hx Anemia: Yes (blood transfusion) Hx Cancer: Yes (prostate,skin) - INTEGUMENTARY Hx Dermatological Problems: Yes Other/Comment: red rash noted on back, chest, sacrum red, scortum, red. Bilateal heel ulcers,dry flaky skin - MUSCULOSKELETAL/RHEUMATOLOGICAL Hx Falls: No - GASTROINTESTINAL Hx Gastrointestinal Disorders: Yes (g tube 06/30/2016) Hx Gastroesophageal Reflux: Yes Other/Comment: incontinent of stool - GENITOURINARY/GYNECOLOGICAL Hx Genitourinary Disorders: Yes Hx Hematuria: Yes Hx Incontinence: Yes Hx Prostate Problems: Yes (bph) Hx Urinary Tract Infection: Yes - PSYCHIATRIC Hx Anxiety: Yes Hx Depression: Yes Hx Emotional Abuse: No Hx Physical Abuse: No - SURGICAL HISTORY Hx Cardiac Catheterization: Yes (with stents) Hx Coronary Stent: Yes (x8) Other/Comment: tonsilectomy, laminectomy - ANESTHESIA Hx Anesthesia Reactions: No Hx Malignant Hyperthermia: No Meds Allergies/Adverse Reactions: Allergies Allergy/AdvReac Type Severity Reaction Status Date / Time No Known Allergies Allergy Verified 11/23/16 12:51 - Medications Medications: Current Medications Acetaminophen (Tylenol 325mg Tab) 650 mg PO Q4H PRN PRN Reason: Pain, Mild (1-3) Last Admin: 11/23/16 21:16 Dose: 650 mg Acetylcysteine (Acetylcysteine 20%) 4 ml IH BIDRESP PETTY Last Admin: 11/24/16 07:32 Dose: 4 ml Albuterol/Ipratropium (Duoneb 3 Mg/0.5 Mg (3 Ml) Ud) 3 ml IH [id number] PETTY Last Admin: 11/24/16 07:32 Dose: 3 ml Collagenase (Santyl) 0 gm TOP DAILY PETTY Meropenem 1g/NS 100mL IVPB (Meropenem 1g/Ns 100ml Ivpb) 1 gm in 100 mls @ 100 mls/hr IVPB Q8 PETTY PRN Reason: Protocol Stop: 12/01/16 06:46 Last Admin: 11/24/16 09:03 Dose: 100 mls/hr Linezolid (Zyvox 600mg/300ml D5w) 600 mg in 300 mls @ 200 mls/hr IVPB Q12 PETTY PRN Reason: Protocol Stop: 12/01/16 10:01 Potassium Chloride (Potassium Chloride 20 Meq/100 Ml) 20 meq in 100 mls @ 50 mls/hr IVPB Q2H PETTY Stop: 11/24/16 13:14 Lisinopril (Zestril) 5 mg GT BID PETTY Last Admin: 11/23/16 19:54 Dose: 5 mg Pantoprazole Sodium (Protonix Inj) 40 mg IVP 0600 [facility] Last Admin: 11/24/16 05:01 Dose: 40 mg Physical Exam - Constitutional Appears: No Acute Distress - Extremities Exam Additional comments: Lower extremity focused exam: Vasc: CFT< 5 seconds to all digits. Pulses non-palpable b/l Neuro: Unable to assess Derm: Full thickness ulcerations noted to heels b/l. Base of right heel is necrotic, base of left heel is a mixture of necrotic and fibrotic tissue. Ulcers probe to bone, mild malodor noted, no abscess formation noted b/l. Edema noted to dorsum of left foot. Excoriations noted to dorsum of feet b/l. Ortho: Severe contracture of the legs noted L>R - Neurological Exam Neurological exam: Alert Results - Vital Signs Recent Vital Signs: Last Vital Signs Temp 98.2 F 11/24/16 06:00 Pulse 98 H 11/24/16 10:00 Resp 18 11/24/16 06:00 BP 146/92 H 11/24/16 06:00 Pulse Ox 97 11/24/16 06:00 - Labs Result Diagrams: 11/24/16 06:30 11/24/16 06:30 Labs: Laboratory Results - last 24 hr 11/23/16 11/24/16 11/24/16 15:00 06:30 06:30 WBC 3.4 L RBC 3.09 L Hgb 9.3 L Hct 28.9 L MCV 93.5 MCH 30.1 MCHC 32.2 RDW 17.9 H Plt Count 127 MPV 9.1 Gran % 73.2 H Lymph % (Auto) 11.5 L [place] % (Auto) 12.1 H Eos % (Auto) 2.9 Baso % (Auto) 0.3 Gran # 2.48 Lymph # 0.4 L [place] # 0.4 Eos # 0.1 Baso # 0.01 Sodium 139 Potassium 3.1 L Chloride 99 Carbon Dioxide 35 H Anion Gap 8 L BUN 33 H Creatinine 0.7 Est GFR ( Amer) > 60 Est GFR (Non-Af Amer) > 60 Random Glucose 97 Calcium 8.3 L Magnesium Urine Color Urine Appearance Urine pH Ur Specific [place] Urine Protein Urine Glucose (UA) Urine Ketones Urine Blood Urine Nitrate Urine Bilirubin Urine Urobilinogen Ur Leukocyte Esterase Urine RBC Urine WBC Ur Epithelial Cells Urine Bacteria Urine Other Blood Type O POSITIVE Antibody Screen Negative Crossmatch See Detail BBK History Checked Patient has bt 11/24/16 11/24/16 06:30 06:30 WBC RBC Hgb Hct MCV MCH MCHC RDW Plt Count MPV Gran % Lymph % (Auto) [place] % (Auto) Eos % (Auto) Baso % (Auto) Gran # Lymph # [place] # Eos # Baso # Sodium Potassium Chloride Carbon Dioxide Anion Gap BUN Creatinine Est GFR ( Amer) Est GFR (Non-Af Amer) Random Glucose Calcium Magnesium 2.1 Urine Color Yellow Urine Appearance Cloudy Urine pH 6.0 Ur Specific [place] 1.015 Urine Protein Trace H Urine Glucose (UA) Negative Urine Ketones Negative Urine Blood Small H Urine Nitrate Negative Urine Bilirubin Negative Urine Urobilinogen 0.2 Ur Leukocyte Esterase Large H Urine RBC 1 - 3 Urine WBC Tntc Ur Epithelial Cells 0 - 2 Urine Bacteria Many Urine Other Uyeast Blood Type Antibody Screen Crossmatch BBK History Checked Assessment & Plan - Assessment and Plan (Free Text) Assessment: 81 year old male with bilateral gangrenous heel ulcerations Plan: patient examined and evaluated with attending Dr. Welch labs, chart and vitals reviewed applied optifoam to heels bilaterally with offloading boots santyl ordered, to be applied to heels b/l daily continue IV abx as per ID offloading boots to be worn at all times while in bed podiatry will continue to follow while patient is in house <Katie Welch - Last Filed: 11/27/16 14:47> Results - Vital Signs Recent Vital Signs: Last Vital Signs Temp 97 F L 11/26/16 11:31 Pulse 106 H 11/26/16 14:32 Resp 18 11/26/16 11:31 BP 138/85 11/26/16 11:31 Pulse Ox 98 11/26/16 09:56 - Labs Result Diagrams: 11/26/16 07:20 11/25/16 05:35 Labs: Laboratory Results - last 24 hr 11/26/16 11:00 C-React Prot High Sens > 15.00 H Attending/Attestation - Attestation I have personally seen and examined this patient.: Yes I have fully participated in the care of the patient.: Yes I have reviewed all pertinent clinical information: Yes
--- NOTE | 2016-11-24 11:06 | CP.PCM.CON ---
History of Present Illness - History of Present Illness History of Present Illness: 81 year old male with PMH of dry gangrene of both heels, growing gram negative bacilli and VRE on wound cx, R/O osteomyelitis in a patient with peripheral vascular disease S/P debridement, history of aspiration pneumonia, healthcare- associated, history of Klebsiella in the urine, history of left lower lobe healthcare-associated pneumonia, atrial fibrillation , HTN, peripheral vascular disease, history of cerebrovascular accident with left sided carotid artery disease, benign prostatic hyperplasia, dementia was recently admitted and discharged from [facility] on November 09 for probable osteomyelitis of the heels which grew Enterobacter and VRE and he was being treated with Zyvox and Rocephin. He was sent to [facility] from the long-term apparently because the patient looked edematous. In the ED, the patient had one episode of fever and Infectious diseases consult is requested to further evaluate and manage. Review of Systems - Review of Systems Systems not reviewed;Unavailable: Dementia Past Patient History - Infectious Disease Hx of Infectious Diseases: None - Tetanus Immunizations Tetanus Immunization: Unknown - Past Medical History & Family History Past Medical History?: Yes - Past Social History Smoking Status: Never Smoked - CARDIAC Hx Congestive Heart Failure: Yes Hx Hypertension: Yes - PULMONARY Hx Bronchitis: Yes Hx Pneumonia: Yes - NEUROLOGICAL HX Cerebrovascular Accident: Yes - HEENT Hx HEENT Problems: No - RENAL Hx Chronic Kidney Disease: No - ENDOCRINE/METABOLIC Hx Endocrine Disorders: No - HEMATOLOGICAL/ONCOLOGICAL Hx Blood Disorders: Yes Hx Anemia: Yes (blood transfusion) Hx Cancer: Yes (prostate,skin) - INTEGUMENTARY Hx Dermatological Problems: Yes Other/Comment: red rash noted on back, chest, sacrum red, scortum, red. Bilateal heel ulcers,dry flaky skin - MUSCULOSKELETAL/RHEUMATOLOGICAL Hx Falls: No - GASTROINTESTINAL Hx Gastrointestinal Disorders: Yes (g tube 06/30/2016) Hx Gastroesophageal Reflux: Yes Other/Comment: incontinent of stool - GENITOURINARY/GYNECOLOGICAL Hx Genitourinary Disorders: Yes Hx Hematuria: Yes Hx Incontinence: Yes Hx Prostate Problems: Yes (bph) Hx Urinary Tract Infection: Yes - PSYCHIATRIC Hx Anxiety: Yes Hx Depression: Yes Hx Emotional Abuse: No Hx Physical Abuse: No - SURGICAL HISTORY Hx Cardiac Catheterization: Yes (with stents) Hx Coronary Stent: Yes (x8) Other/Comment: tonsilectomy, laminectomy - ANESTHESIA Hx Anesthesia Reactions: No Hx Malignant Hyperthermia: No Meds Allergies/Adverse Reactions: Allergies Allergy/AdvReac Type Severity Reaction Status Date / Time No Known Allergies Allergy Verified 11/23/16 12:51 - Medications Medications: Current Medications Acetaminophen (Tylenol 325mg Tab) 650 mg PO Q4H PRN PRN Reason: Pain, Mild (1-3) Last Admin: 11/23/16 21:16 Dose: 650 mg Acetylcysteine (Acetylcysteine 20%) 4 ml IH BIDRESP PETTY Last Admin: 11/23/16 21:31 Dose: 4 ml Albuterol/Ipratropium (Duoneb 3 Mg/0.5 Mg (3 Ml) Ud) 3 ml IH [id number] PETTY Last Admin: 11/24/16 02:45 Dose: 3 ml Lisinopril (Zestril) 5 mg GT BID [facility] Last Admin: 11/23/16 19:54 Dose: 5 mg Pantoprazole Sodium (Protonix Inj) 40 mg IVP 0600 [facility] Last Admin: 11/24/16 05:01 Dose: 40 mg Physical Exam - Constitutional Appears: Non-toxic, No Acute Distress - Head Exam Head Exam: NORMAL INSPECTION - ENT Exam ENT Exam: Mucous Membranes Moist - Neck Exam Neck exam: Negative for: Lymphadenopathy, Meningismus - Respiratory Exam Respiratory Exam: Decreased Breath Sounds - Cardiovascular Exam Cardiovascular Exam: +S1, +S2 - GI/Abdominal Exam GI & Abdominal Exam: Soft. absent: Tenderness - Extremities Exam Additional comments: both feet with dry dressings in place Results - Vital Signs Recent Vital Signs: Last Vital Signs Temp 98.2 F 11/24/16 06:00 Pulse 84 11/24/16 06:00 Resp 18 11/24/16 06:00 BP 146/92 H 11/24/16 06:00 Pulse Ox 97 11/24/16 06:00 - Labs Result Diagrams: 11/24/16 06:30 11/24/16 06:30 Labs: Laboratory Results - last 24 hr 11/23/16 15:00 Blood Type O POSITIVE Antibody Screen Negative Crossmatch See Detail BBK History Checked Patient has bt Assessment & Plan - Assessment and Plan (Free Text) Plan: Assessment Fever, etiology to be determined, R/O sepsis Dry gangrene of both heels, growing gram negative bacilli and VRE on wound cx, consider osteomyelitis in a patient with peripheral vascular disease S/P debridement history of aspiration pneumonia, healthcare-associated history of Klebsiella in the urine, consider UTI history of left lower lobe healthcare-associated pneumonia atrial fibrillation HTN peripheral vascular disease history of cerebrovascular accident with left sided carotid artery disease benign prostatic hyperplasia dementia Plan continue Zyvox and will start Merrem and add one dose of IV Vancomycin pending blood cx, urine cx, CXR will monitor clinically
--- NOTE | 2016-11-24 11:26 | CP.PCM.CON ---
<Erika Juan - Last Filed: 11/24/16 11:27> History of Present Illness - History of Present Illness History of Present Illness: S&E at bedside, chart reviewed. Request for consult is for Anemia. HPI: This is an 81 y.o male with PMH of CVA, dysphasia s/p EGD w/PEG, brought in from [facility] for appearing edematous. [place] [address], and hgb of 7.7 , he s/p 2 units of PRBC. Patient is awake but nonverbal. History obtained form medical chart, PCP, and nursing staff. No acute distress. No reports of SOB, CP, overt GI bleed. Patient did have EGD on , found angulated circopharyngeal, had PEG, and H/H, inflammation in the gastric antrum. Patient was bieng treated for Osteomyelitis on Right foot, on antibiotics at [facility]. PMH: multiple strokes, CAD, left heel Osteomyelitis, Skin Cancer, UTI, Atrial Fibrillation, Degenerative spinal disease SHX: egd 06/2016, s/p PEG, Allergies: NKDA Family HX: noncontributory at this time MEDS: reviewed as per [facility] Social hx: no hx smoking, etoh,drugs, From [facility] ROS: systems reviewed with positive findings, see HPI Past Patient History - Infectious Disease Hx of Infectious Diseases: None - Tetanus Immunizations Tetanus Immunization: Unknown - Past Medical History & Family History Past Medical History?: Yes - Past Social History Smoking Status: Never Smoked - CARDIAC Hx Congestive Heart Failure: Yes Hx Hypertension: Yes - PULMONARY Hx Bronchitis: Yes Hx Pneumonia: Yes - NEUROLOGICAL HX Cerebrovascular Accident: Yes - HEENT Hx HEENT Problems: No - RENAL Hx Chronic Kidney Disease: No - ENDOCRINE/METABOLIC Hx Endocrine Disorders: No - HEMATOLOGICAL/ONCOLOGICAL Hx Blood Disorders: Yes Hx Anemia: Yes (blood transfusion) Hx Cancer: Yes (prostate,skin) - INTEGUMENTARY Hx Dermatological Problems: Yes Other/Comment: red rash noted on back, chest, sacrum red, scortum, red. Bilateal heel ulcers,dry flaky skin - MUSCULOSKELETAL/RHEUMATOLOGICAL Hx Falls: No - GASTROINTESTINAL Hx Gastrointestinal Disorders: Yes (g tube 06/30/2016) Hx Gastroesophageal Reflux: Yes Other/Comment: incontinent of stool - GENITOURINARY/GYNECOLOGICAL Hx Genitourinary Disorders: Yes Hx Hematuria: Yes Hx Incontinence: Yes Hx Prostate Problems: Yes (bph) Hx Urinary Tract Infection: Yes - PSYCHIATRIC Hx Anxiety: Yes Hx Depression: Yes Hx Emotional Abuse: No Hx Physical Abuse: No - SURGICAL HISTORY Hx Cardiac Catheterization: Yes (with stents) Hx Coronary Stent: Yes (x8) Other/Comment: tonsilectomy, laminectomy - ANESTHESIA Hx Anesthesia Reactions: No Hx Malignant Hyperthermia: No Meds Allergies/Adverse Reactions: Allergies Allergy/AdvReac Type Severity Reaction Status Date / Time No Known Allergies Allergy Verified 11/23/16 12:51 - Medications Medications: Current Medications Acetaminophen (Tylenol 325mg Tab) 650 mg PO Q4H PRN PRN Reason: Pain, Mild (1-3) Last Admin: 11/23/16 21:16 Dose: 650 mg Acetylcysteine (Acetylcysteine 20%) 4 ml IH BIDRESP PETTY Last Admin: 11/24/16 07:32 Dose: 4 ml Albuterol/Ipratropium (Duoneb 3 Mg/0.5 Mg (3 Ml) Ud) 3 ml IH [id number] PETTY Last Admin: 11/24/16 07:32 Dose: 3 ml Collagenase (Santyl) 0 gm TOP DAILY PETTY Meropenem 1g/NS 100mL IVPB (Meropenem 1g/Ns 100ml Ivpb) 1 gm in 100 mls @ 100 mls/hr IVPB Q8 PETTY PRN Reason: Protocol Stop: 12/01/16 06:46 Last Admin: 11/24/16 09:03 Dose: 100 mls/hr Linezolid (Zyvox 600mg/300ml D5w) 600 mg in 300 mls @ 200 mls/hr IVPB Q12 PETTY PRN Reason: Protocol Stop: 12/01/16 10:01 Potassium Chloride (Potassium Chloride 20 Meq/100 Ml) 20 meq in 100 mls @ 50 mls/hr IVPB Q2H PETTY Stop: 11/24/16 13:14 Lisinopril (Zestril) 5 mg GT BID PETTY Last Admin: 11/24/16 10:59 Dose: 5 mg Pantoprazole Sodium (Protonix Inj) 40 mg IVP 0600 EP[facility] Last Admin: 11/24/16 05:01 Dose: 40 mg Physical Exam - Constitutional Appears: No Acute Distress - Head Exam Head Exam: NORMAL INSPECTION - Eye Exam Eye Exam: Normal appearance. absent: Scleral icterus Pupil Exam: NORMAL ACCOMODATION - ENT Exam ENT Exam: Mucous Membranes Moist - Neck Exam Neck exam: Positive for: Normal Inspection - Respiratory Exam Respiratory Exam: Decreased Breath Sounds, NORMAL BREATHING PATTERN. absent: Respiratory Distress - Cardiovascular Exam Cardiovascular Exam: +S1, +S2 - GI/Abdominal Exam GI & Abdominal Exam: Normal Bowel Sounds, Soft. absent: Guarding, Rebound, Tenderness Additional comments: (+) PEG - Extremities Exam Extremities exam: Negative for: calf tenderness, pedal edema - Neurological Exam Neurological exam: Alert, Oriented x3 - Skin Skin Exam: Dry, Warm Results - Vital Signs Recent Vital Signs: Last Vital Signs Temp 98.2 F 11/24/16 06:00 Pulse 112 H 11/24/16 10:59 Resp 18 11/24/16 06:00 BP 157/87 H 11/24/16 10:59 Pulse Ox 97 11/24/16 06:00 - Labs Result Diagrams: 11/24/16 06:30 11/24/16 06:30 Labs: Laboratory Results - last 24 hr 11/23/16 11/24/16 11/24/16 15:00 06:30 06:30 WBC 3.4 L RBC 3.09 L Hgb 9.3 L Hct 28.9 L MCV 93.5 MCH 30.1 MCHC 32.2 RDW 17.9 H Plt Count 127 MPV 9.1 Gran % 73.2 H Lymph % (Auto) 11.5 L [place] % (Auto) 12.1 H Eos % (Auto) 2.9 Baso % (Auto) 0.3 Gran # 2.48 Lymph # 0.4 L [place] # 0.4 Eos # 0.1 Baso # 0.01 Sodium 139 Potassium 3.1 L Chloride 99 Carbon Dioxide 35 H Anion Gap 8 L BUN 33 H Creatinine 0.7 Est GFR ( Amer) > 60 Est GFR (Non-Af Amer) > 60 Random Glucose 97 Calcium 8.3 L Magnesium Urine Color Urine Appearance Urine pH Ur Specific [place] Urine Protein Urine Glucose (UA) Urine Ketones Urine Blood Urine Nitrate Urine Bilirubin Urine Urobilinogen Ur Leukocyte Esterase Urine RBC Urine WBC Ur Epithelial Cells Urine Bacteria Urine Other Blood Type O POSITIVE Antibody Screen Negative Crossmatch See Detail BBK History Checked Patient has bt 11/24/16 11/24/16 06:30 06:30 WBC RBC Hgb Hct MCV MCH MCHC RDW Plt Count MPV Gran % Lymph % (Auto) [place] % (Auto) Eos % (Auto) Baso % (Auto) Gran # Lymph # [place] # Eos # Baso # Sodium Potassium Chloride Carbon Dioxide Anion Gap BUN Creatinine Est GFR ( Amer) Est GFR (Non-Af Amer) Random Glucose Calcium Magnesium 2.1 Urine Color Yellow Urine Appearance Cloudy Urine pH 6.0 Ur Specific [place] 1.015 Urine Protein Trace H Urine Glucose (UA) Negative Urine Ketones Negative Urine Blood Small H Urine Nitrate Negative Urine Bilirubin Negative Urine Urobilinogen 0.2 Ur Leukocyte Esterase Large H Urine RBC 1 - 3 Urine WBC Tntc Ur Epithelial Cells 0 - 2 Urine Bacteria Many Urine Other Uyeast Blood Type Antibody Screen Crossmatch BBK History Checked Assessment & Plan - Assessment and Plan (Free Text) Assessment: ASSESSMENT: Anemia, unknown etiology, Iron studies ok, guiac negative CHF Osteomyelitis R foot Hypokalemial CVA PEG CAD PLAN: monitor H/H, overt GIB continue PPI on IV antibiotics as per ID replace potassium as needed. spoke to Dr. Long, at this time prefer no invasive procedure, continue supportive care Thank you for this consult and for allowing us to participate in your patient care, amy make further recommendation based upon patient clinical course. Seen and discussed with Dr. Martínez. <Jeffrey Martínez V - Last Filed: 11/24/16 23:59> Meds - Medications Medications: Current Medications Acetaminophen (Tylenol 325mg Tab) 650 mg PO Q4H PRN PRN Reason: Pain, Mild (1-3) Last Admin: 11/23/16 21:16 Dose: 650 mg Acetylcysteine (Acetylcysteine 20%) 4 ml IH BIDRESP PETTY Last Admin: 11/24/16 20:17 Dose: 4 ml Albuterol/Ipratropium (Duoneb 3 Mg/0.5 Mg (3 Ml) Ud) 3 ml IH [id number] PETTY Last Admin: 11/24/16 20:17 Dose: 3 ml Collagenase (Santyl) 0 gm TOP DAILY PETTY Meropenem 1g/NS 100mL IVPB (Meropenem 1g/Ns 100ml Ivpb) 1 gm in 100 mls @ 100 mls/hr IVPB Q8 PETTY PRN Reason: Protocol Stop: 12/01/16 06:46 Last Admin: 11/24/16 21:46 Dose: 100 mls/hr Linezolid (Zyvox 600mg/300ml D5w) 600 mg in 300 mls @ 200 mls/hr IVPB Q12 PTETY PRN Reason: Protocol Stop: 12/01/16 10:01 Last Admin: 11/24/16 22:57 Dose: 200 mls/hr Lisinopril (Zestril) 5 mg GT BID PETTY Last Admin: 11/24/16 17:15 Dose: 5 mg Pantoprazole Sodium (Protonix Inj) 40 mg IVP 0600 PETTY Last Admin: 11/24/16 05:01 Dose: 40 mg Results - Vital Signs Recent Vital Signs: Last Vital Signs Temp 98.2 F 11/24/16 18:00 Pulse 103 H 11/24/16 18:00 Resp 18 11/24/16 18:00 BP 144/104 H 11/24/16 18:00 Pulse Ox 97 11/24/16 06:00 - Labs Result Diagrams: 11/24/16 06:30 11/24/16 06:30 Labs: Laboratory Results - last 24 hr 11/23/16 11/24/16 11/24/16 15:00 06:30 06:30 WBC 3.4 L RBC 3.09 L Hgb 9.3 L Hct 28.9 L MCV 93.5 MCH 30.1 MCHC 32.2 RDW 17.9 H Plt Count 127 MPV 9.1 Gran % 73.2 H Lymph % (Auto) 11.5 L [place] % (Auto) 12.1 H Eos % (Auto) 2.9 Baso % (Auto) 0.3 Gran # 2.48 Lymph # 0.4 L [place] # 0.4 Eos # 0.1 Baso # 0.01 Sodium 139 Potassium 3.1 L Chloride 99 Carbon Dioxide 35 H Anion Gap 8 L BUN 33 H Creatinine 0.7 Est GFR ( Amer) > 60 Est GFR (Non-Af Amer) > 60 Random Glucose 97 Calcium 8.3 L Magnesium Urine Color Urine Appearance Urine pH Ur Specific [place] Urine Protein Urine Glucose (UA) Urine Ketones Urine Blood Urine Nitrate Urine Bilirubin Urine Urobilinogen Ur Leukocyte Esterase Urine RBC Urine WBC Ur Epithelial Cells Urine Bacteria Urine Other Blood Type O POSITIVE Antibody Screen Negative Crossmatch See Detail BBK History Checked Patient has bt 11/24/16 11/24/16 06:30 06:30 WBC RBC Hgb Hct MCV MCH MCHC RDW Plt Count MPV Gran % Lymph % (Auto) [place] % (Auto) Eos % (Auto) Baso % (Auto) Gran # Lymph # [place] # Eos # Baso # Sodium Potassium Chloride Carbon Dioxide Anion Gap BUN Creatinine Est GFR ( Amer) Est GFR (Non-Af Amer) Random Glucose Calcium Magnesium 2.1 Urine Color Yellow Urine Appearance Cloudy Urine pH 6.0 Ur Specific [place] 1.015 Urine Protein Trace H Urine Glucose (UA) Negative Urine Ketones Negative Urine Blood Small H Urine Nitrate Negative Urine Bilirubin Negative Urine Urobilinogen 0.2 Ur Leukocyte Esterase Large H Urine RBC 1 - 3 Urine WBC Tntc Ur Epithelial Cells 0 - 2 Urine Bacteria Many Urine Other Uyeast Blood Type Antibody Screen Crossmatch BBK History Checked Attending/Attestation - Attestation I have personally seen and examined this patient.: Yes I have fully participated in the care of the patient.: Yes I have reviewed all pertinent clinical information: Yes Notes (Text): th
[2016-11-24] MEDS: Linezolid 600 mg in D5W 300 ml 600 MG/300 ML BAG IVPB SCH ×2 (14:27→22:57)
[2016-11-25] MEDS: Albuterol-Ipratrop 3 mg / 0.5 (3 ml) UD IH SCH ×4 (01:19→22:08)
[2016-11-25] MEDS: Meropenem 1g/NS 100mL IVPB 1 GM/100 ML PIGGYBACK IVPB SCH ×3 (05:42→21:07)
[2016-11-25 06:38] LABS: BASO # 0.01 K/mm3 (0.0-2.0); BASO % 0.2 % (0.0-3.0); EOS % 0.9 % (1.5-5.0); GRAN # 3.27 (1.4-6.5); GRAN % 75.8 % (50.0-68.0); HEMOGLOBIN 9.3 gm/dL (14.0-18.0); LYMPH # 0.5 (1.2-3.4); LYMPH % 11.1 % (22.0-35.0); MEAN CELL VOLUME 94.4 fL (80.0-105.0); MEAN CORPUSCULAR HEMOGLOBIN 30.5 pg (25.0-35.0); MEAN CORPUSCULAR HGB CONC 32.3 g/dl (31.0-37.0); MEAN PLATELET VOLUME 9.4 fl (7.0-11.0); MONO # 0.5 (0.1-0.6); PLATELET COUNT 147 10^3/uL (120.0-450.0); RBC 3.05 10^6/uL (3.5-6.1); RED CELL DISTRIBUTION WIDTH 17.6 % (11.5-14.5); WHITE BLOOD COUNT 4.3 10^3/ul (4.5-11.0)
[2016-11-25 06:45] LABS: BLOOD UREA NITROGEN 32 mg/dL (7-21); CALCIUM 8.1 mg/dL (8.4-10.5); GFR AFRICAN-AMERICAN > 60; GFR NON-AFRICAN AMERICAN > 60
[2016-11-25 06:51] LABS: B-TYPE NATRIURETIC PEPTIDE 9910 pg/mL (0-450)
[2016-11-25] MEDS: Acetylcysteine 20% Inhal Soln (4ml) IH SCH ×2 (07:44→22:08)
--- NOTE | 2016-11-25 09:07 | CP.PCM.PN ---
<Bisi Serrano - Last Filed: 11/25/16 09:05> Subjective - Date & Time of Evaluation Date of Evaluation: 11/25/16 Time of Evaluation: 09:05 - Subjective Subjective: 81 year old male was seen at bedside with attending, Dr. Welch regarding b/l heel ulcers. Patient had offloading boots to heel feet b/l and dressings to his feet b/l. Patient appears in NAD. Patients left leg is severely contracted. Objective - Vital Signs/Intake and Output Vital Signs (last 24 hours): Temp Pulse Resp BP Pulse Ox 99.6 F 111 H 20 147/108 H 98 11/25/16 06:00 11/25/16 06:00 11/25/16 06:00 11/25/16 06:00 11/25/16 06:00 Intake and Output: 11/25/16 11/25/16 06:59 18:59 Intake Total 600 Balance 600 - Medications Medications: Current Medications Acetaminophen (Tylenol 325mg Tab) 650 mg PO Q4H PRN PRN Reason: Pain, Mild (1-3) Last Admin: 11/25/16 02:07 Dose: 650 mg Acetylcysteine (Acetylcysteine 20%) 4 ml IH BIDRESP PETTY Last Admin: 11/25/16 07:44 Dose: 4 ml Albuterol/Ipratropium (Duoneb 3 Mg/0.5 Mg (3 Ml) Ud) 3 ml IH [id number] PETTY Last Admin: 11/25/16 07:44 Dose: 3 ml Collagenase (Santyl) 0 gm TOP DAILY PETTY Meropenem 1g/NS 100mL IVPB (Meropenem 1g/Ns 100ml Ivpb) 1 gm in 100 mls @ 100 mls/hr IVPB Q8 PETTY PRN Reason: Protocol Stop: 12/01/16 06:46 Last Admin: 11/25/16 05:42 Dose: 100 mls/hr Linezolid (Zyvox 600mg/300ml D5w) 600 mg in 300 mls @ 200 mls/hr IVPB Q12 PETTY PRN Reason: Protocol Stop: 12/01/16 10:01 Last Admin: 11/24/16 22:57 Dose: 200 mls/hr Lisinopril (Zestril) 5 mg GT BID PETTY Last Admin: 11/24/16 17:15 Dose: 5 mg Pantoprazole Sodium (Protonix Inj) 40 mg IVP 0600 PETTY Last Admin: 11/25/16 05:42 Dose: 40 mg - Labs Labs: 11/25/16 05:35 11/25/16 05:35 PT 12.5 Seconds (9.9-11.8) H 11/23/16 13:45 INR 1.16 (0.93-1.08) H 11/23/16 13:45 APTT 31.0 Seconds (23.7-30.8) H 11/23/16 13:45 - Constitutional Appears: Non-toxic, No Acute Distress - Extremities Exam Additional comments: Lower extremity focused exam: Vasc: CFT< 5 seconds to all digits. Pulses non-palpable b/l Neuro: Unable to assess Derm: Full thickness ulcerations noted to heels b/l. Base of right heel is necrotic, base of left heel is a mixture of necrotic and fibrotic tissue. Ulcers probe to bone, mild malodor noted, no abscess formation noted b/l. Edema noted to dorsum of left foot. Excoriations noted to dorsum of feet b/l. Ortho: Severe contracture of the legs noted L>R - Neurological Exam Neurological Exam: Awake Assessment and Plan - Assessment and Plan (Free Text) Assessment: 81 year old male with bilateral gangrenous heel ulcerations Plan: patient examined and evaluated with attending, Dr. Welhc labs, chart and vitals reviewed heels cleansed with normal sterile saline b/l applied optifoam to heels bilaterally with offloading boots santyl ordered, to be applied to heels b/l daily continue IV abx as per ID offloading boots to be worn at all times while in bed podiatry will continue to follow while patient is in house <Katie Welch - Last Filed: 11/27/16 14:49> Objective - Vital Signs/Intake and Output Vital Signs (last 24 hours): Temp Pulse Resp BP Pulse Ox 97 F L 106 H 18 138/85 98 11/26/16 11:31 11/26/16 14:32 11/26/16 11:31 11/26/16 11:31 11/26/16 09:56 - Labs Labs: 11/26/16 07:20 11/25/16 05:35 PT 12.5 Seconds (9.9-11.8) H 11/23/16 13:45 INR 1.16 (0.93-1.08) H 11/23/16 13:45 APTT 31.0 Seconds (23.7-30.8) H 11/23/16 13:45 Attending/Attestation - Attestation I have personally seen and examined this patient.: Yes I have fully participated in the care of the patient.: Yes I have reviewed all pertinent clinical information, including history, physical exam and plan: Yes
--- NOTE | 2016-11-25 09:31 | CP.PCM.PN ---
Subjective - Date & Time of Evaluation Date of Evaluation: 11/25/16 Time of Evaluation: 08:35 - Subjective Subjective: Seen and examined at bedside. No acute overnight event reported. No overt GI bleed. Tolerating Jevity at 65 cc/hr via PEG. Patient is awake and alert, answer simple simple questions. Objective - Vital Signs/Intake and Output Vital Signs (last 24 hours): Temp Pulse Resp BP Pulse Ox 99.6 F 111 H 20 147/108 H 98 11/25/16 06:00 11/25/16 06:00 11/25/16 06:00 11/25/16 06:00 11/25/16 06:00 Intake and Output: 11/25/16 11/25/16 06:59 18:59 Intake Total 600 Balance 600 - Medications Medications: Current Medications Acetaminophen (Tylenol 325mg Tab) 650 mg PO Q4H PRN PRN Reason: Pain, Mild (1-3) Last Admin: 11/25/16 02:07 Dose: 650 mg Acetylcysteine (Acetylcysteine 20%) 4 ml IH BIDRESP PETTY Last Admin: 11/25/16 07:44 Dose: 4 ml Albuterol/Ipratropium (Duoneb 3 Mg/0.5 Mg (3 Ml) Ud) 3 ml IH [id number] PETTY Last Admin: 11/25/16 07:44 Dose: 3 ml Collagenase (Santyl) 0 gm TOP DAILY PETTY Meropenem 1g/NS 100mL IVPB (Meropenem 1g/Ns 100ml Ivpb) 1 gm in 100 mls @ 100 mls/hr IVPB Q8 PETTY PRN Reason: Protocol Stop: 12/01/16 06:46 Last Admin: 11/25/16 05:42 Dose: 100 mls/hr Linezolid (Zyvox 600mg/300ml D5w) 600 mg in 300 mls @ 200 mls/hr IVPB Q12 PETTY PRN Reason: Protocol Stop: 12/01/16 10:01 Last Admin: 11/24/16 22:57 Dose: 200 mls/hr Lisinopril (Zestril) 5 mg GT BID PETTY Last Admin: 11/24/16 17:15 Dose: 5 mg Pantoprazole Sodium (Protonix Inj) 40 mg IVP 0600 PETTY Last Admin: 11/25/16 05:42 Dose: 40 mg - Labs Labs: 11/25/16 05:35 11/25/16 05:35 PT 12.5 Seconds (9.9-11.8) H 11/23/16 13:45 INR 1.16 (0.93-1.08) H 11/23/16 13:45 APTT 31.0 Seconds (23.7-30.8) H 11/23/16 13:45 - Constitutional Appears: No Acute Distress - Head Exam Head Exam: NORMAL INSPECTION - Eye Exam Eye Exam: Normal appearance. absent: Scleral icterus - ENT Exam ENT Exam: Mucous Membranes Moist - Neck Exam Neck Exam: Normal Inspection - Respiratory Exam Respiratory Exam: Decreased Breath Sounds, NORMAL BREATHING PATTERN. absent: Wheezes, Respiratory Distress - Cardiovascular Exam Cardiovascular Exam: +S1, +S2 - GI/Abdominal Exam GI & Abdominal Exam: Soft, Normal Bowel Sounds. absent: Guarding, Tenderness, Organomegaly, Rebound Additional comments: (+) PEG, area dry and intact - Extremities Exam Extremities Exam: absent: Calf Tenderness (lower extermity with dry dressing, left leg contracted.) - Neurological Exam Neurological Exam: Alert, Awake - Skin Skin Exam: Dry, Warm Assessment and Plan - Assessment and Plan (Free Text) Assessment: ASSESSMENT: Anemia, unknown etiology, Iron studies ok, guiac negative CHF Osteomyelitis R foot Hypokalemia CVA PEG CAD PLAN: continue Jevity 65 cc/hr, check residuals monitor H/H & for overt GIB continue PPI on IV antibiotics as per ID replace potassium as needed. continue supportive care H/H steady now, no active GIB, if decrease H/H consider ct scan abdomen & pelvis Seen and discussed with Dr. Martínez.
[2016-11-25] MEDS: Linezolid 600 mg in D5W 300 ml 600 MG/300 ML BAG IVPB SCH ×2 (10:17→22:24)
--- NOTE | 2016-11-25 10:28 | CP.PCM.PN ---
Subjective - Date & Time of Evaluation Date of Evaluation: 11/25/16 Time of Evaluation: 09:25 - Subjective Subjective: Patient is comfortable in bed, not in distress, afebrile. Objective - Vital Signs/Intake and Output Vital Signs (last 24 hours): Temp Pulse Resp BP Pulse Ox 99.6 F 111 H 20 147/108 H 98 11/25/16 06:00 11/25/16 06:00 11/25/16 06:00 11/25/16 06:00 11/25/16 06:00 Intake and Output: 11/25/16 11/25/16 06:59 18:59 Intake Total 600 Balance 600 - Medications Medications: Current Medications Acetaminophen (Tylenol 325mg Tab) 650 mg PO Q4H PRN PRN Reason: Pain, Mild (1-3) Last Admin: 11/25/16 02:07 Dose: 650 mg Acetylcysteine (Acetylcysteine 20%) 4 ml IH BIDRESP PETTY Last Admin: 11/25/16 07:44 Dose: 4 ml Albuterol/Ipratropium (Duoneb 3 Mg/0.5 Mg (3 Ml) Ud) 3 ml IH [id number] PETTY Last Admin: 11/25/16 07:44 Dose: 3 ml Collagenase (Santyl) 0 gm TOP DAILY PETTY Meropenem 1g/NS 100mL IVPB (Meropenem 1g/Ns 100ml Ivpb) 1 gm in 100 mls @ 100 mls/hr IVPB Q8 PETTY PRN Reason: Protocol Stop: 12/01/16 06:46 Last Admin: 11/25/16 05:42 Dose: 100 mls/hr Linezolid (Zyvox 600mg/300ml D5w) 600 mg in 300 mls @ 200 mls/hr IVPB Q12 PETTY PRN Reason: Protocol Stop: 12/01/16 10:01 Last Admin: 11/24/16 22:57 Dose: 200 mls/hr Lisinopril (Zestril) 5 mg GT BID PETTY Last Admin: 11/24/16 17:15 Dose: 5 mg Pantoprazole Sodium (Protonix Inj) 40 mg IVP 0600 PETTY Last Admin: 11/25/16 05:42 Dose: 40 mg - Labs Labs: 11/25/16 05:35 11/25/16 05:35 PT 12.5 Seconds (9.9-11.8) H 11/23/16 13:45 INR 1.16 (0.93-1.08) H 11/23/16 13:45 APTT 31.0 Seconds (23.7-30.8) H 11/23/16 13:45 - Constitutional Appears: Non-toxic, No Acute Distress - Head Exam Head Exam: NORMAL INSPECTION - ENT Exam ENT Exam: Mucous Membranes Moist - Neck Exam Neck Exam: absent: Lymphadenopathy, Meningismus - Respiratory Exam Respiratory Exam: Decreased Breath Sounds - Cardiovascular Exam Cardiovascular Exam: +S1, +S2 - GI/Abdominal Exam GI & Abdominal Exam: Soft. absent: Tenderness - Extremities Exam Additional comments: both feet with dry dressings in place Assessment and Plan - Assessment and Plan (Free Text) Plan: Assessment Fever, etiology to be determined, R/O new onset sepsis Dry gangrene of both heels, growing gram negative bacilli and VRE on wound cx ( from previous admission), consider osteomyelitis in a patient with peripheral vascular disease S/P debridement (during last admission) history of aspiration pneumonia, healthcare-associated history of Klebsiella in the urine, consider UTI history of left lower lobe healthcare-associated pneumonia atrial fibrillation HTN peripheral vascular disease history of cerebrovascular accident with left sided carotid artery disease benign prostatic hyperplasia dementia Plan continue Zyvox and Merrem (day 2); blood cx are negative so far; follow up urine cx; CXR does not show pneumonia will continue to monitor clinically Discussed with Dr. Long and Dr. Bowman (covering Dr. Long)
[2016-11-25] MEDS: Collagenase 250 Units/gm Ointment(30 gm) TOP SCH (10:51)
[2016-11-26] MEDS: Albuterol-Ipratrop 3 mg / 0.5 (3 ml) UD IH SCH ×3 (02:20→13:46)
[2016-11-26] MEDS: Meropenem 1g/NS 100mL IVPB 1 GM/100 ML PIGGYBACK IVPB SCH (06:21)
[2016-11-26 07:50] LABS: HEMOGLOBIN 9.6 gm/dL (14.0-18.0); MEAN CELL VOLUME 94.9 fL (80.0-105.0); MEAN CORPUSCULAR HEMOGLOBIN 30.5 pg (25.0-35.0); MEAN CORPUSCULAR HGB CONC 32.1 g/dl (31.0-37.0); MEAN PLATELET VOLUME 8.9 fl (7.0-11.0); RBC 3.15 10^6/uL (3.5-6.1); WHITE BLOOD COUNT 5.1 10^3/ul (4.5-11.0)
[2016-11-26] MEDS: Acetylcysteine 20% Inhal Soln (4ml) IH SCH (07:52)
--- NOTE | 2016-11-26 08:03 | PQF CHF ---
This form is a permanent part of the medical record Dr. Long, Please specify type and severity of CHF. Clarification of your documentation is requested to better reflect the severity of illness and intensity of treatment of your patient. Indicators present [] Diagnosis of CHF and/or history of CHF [] BNP > 200 [] Imaging Finding of Pulmonary Edema /Pleural Effusions [] Fluid/Volume Overload [] Pitting edema [] Ejection Fraction < 40% (Indicative of Systolic Heart Failure) [] Ejection Fraction > 40% (Indicative of Diastolic Heart Failure) [] Dyspnea / Orthopenea / Paroxysmal Nocturnal Dyspnea [] Other: Location in the medical record that reflects the above clinical findings: [] Treatment Provided: [] PHYSICIAN'S RESPONSE Based on your medical judgment of the clinical indicators outlined above, are you treating this patient for a known or suspected: [] Acute CHF [] Systolic [] Diastolic [] Combined [] Chronic CHF [] Systolic [] Diastolic [] Combined [] Acute on Chronic CHF []Systolic [] Diastolic [] Combined [] CHF due hypertension [] Acute systolic []Chronic systolic [] Acute/ chronic systolic [] Other, please indicate: [] [] If Unable to Determine, please check the box, sign and date. Present On Admission (POA) Indicator: [] Present at the time of admission [] Not present at the time of admission [] Clinically Undetermined In responding to this query, please exercise your independent professional judgment. The fact that a question is asked does not imply that any particular answer is desired or expected. Thank you for your clarification on this documentation. If you have any questions please call:[ ] * Thank you, [ ]Donny HARDY Coder DIDI
[2016-11-26 09:57] VITALS: O2SAT 98
[2016-11-26] MEDS: Linezolid 600 mg in D5W 300 ml 600 MG/300 ML BAG IVPB SCH (10:01)
[2016-11-26] MEDS: Collagenase 250 Units/gm Ointment(30 gm) TOP SCH (10:02)
--- NOTE | 2016-11-26 10:03 | CP.PCM.PN ---
<Erika Juan - Last Filed: 11/26/16 10:01> Subjective - Date & Time of Evaluation Date of Evaluation: 11/26/16 Time of Evaluation: 08:25 - Subjective Subjective: S&E at bedside, chart reviewed. Tolerating PEG feeding, no acute overnight events reported. No reports of overt GI bleeding. Patient is awake and alert, denies, SOB, CP, N/V or abdominal pain. Objective - Vital Signs/Intake and Output Vital Signs (last 24 hours): Temp Pulse Resp BP Pulse Ox 99.2 F 104 H 16 156/87 H 98 11/26/16 06:00 11/26/16 09:56 11/26/16 09:56 11/26/16 09:56 11/26/16 09:56 Intake and Output: 11/26/16 11/26/16 06:59 18:59 Intake Total 1080 Output Total 400 Balance 680 - Medications Medications: Current Medications Acetaminophen (Tylenol 325mg Tab) 650 mg PO Q4H PRN PRN Reason: Pain, Mild (1-3) Last Admin: 11/25/16 02:07 Dose: 650 mg Acetylcysteine (Acetylcysteine 20%) 4 ml IH BIDRESP PETTY Last Admin: 11/26/16 07:52 Dose: 4 ml Albuterol/Ipratropium (Duoneb 3 Mg/0.5 Mg (3 Ml) Ud) 3 ml IH [id number] PETTY Last Admin: 11/26/16 07:52 Dose: 3 ml Collagenase (Santyl) 0 gm TOP DAILY PETTY Last Admin: 11/25/16 10:51 Dose: Not Given Diltiazem HCl (Cardizem) 30 mg PO QID PETTY Last Admin: 11/25/16 22:23 Dose: 30 mg Fluconazole (Diflucan) 100 mg PO DAILY PETTY PRN Reason: Protocol Meropenem 1g/NS 100mL IVPB (Meropenem 1g/Ns 100ml Ivpb) 1 gm in 100 mls @ 100 mls/hr IVPB Q8 PETTY PRN Reason: Protocol Stop: 12/01/16 06:46 Last Admin: 11/26/16 06:21 Dose: 100 mls/hr Linezolid (Zyvox 600mg/300ml D5w) 600 mg in 300 mls @ 200 mls/hr IVPB Q12 PETTY PRN Reason: Protocol Stop: 12/01/16 10:01 Last Admin: 11/25/16 22:24 Dose: 200 mls/hr Lisinopril (Zestril) 5 mg GT BID [facility] Last Admin: 11/25/16 18:50 Dose: 5 mg Pantoprazole Sodium (Protonix Inj) 40 mg IVP 0600 [facility] Last Admin: 11/26/16 06:20 Dose: 40 mg - Labs Labs: 11/26/16 07:20 11/25/16 05:35 PT 12.5 Seconds (9.9-11.8) H 11/23/16 13:45 INR 1.16 (0.93-1.08) H 11/23/16 13:45 APTT 31.0 Seconds (23.7-30.8) H 11/23/16 13:45 - Constitutional Appears: No Acute Distress - Eye Exam Eye Exam: Normal appearance. absent: Scleral icterus - ENT Exam ENT Exam: Mucous Membranes Moist - Respiratory Exam Respiratory Exam: Decreased Breath Sounds, NORMAL BREATHING PATTERN. absent: Rales, Wheezes, Respiratory Distress - Cardiovascular Exam Cardiovascular Exam: +S1, +S2 - GI/Abdominal Exam GI & Abdominal Exam: Soft, Normal Bowel Sounds. absent: Guarding, Tenderness, Organomegaly, Rebound Additional comments: (+) PEG, dry and intact, no drainage or erythema - Extremities Exam Extremities Exam: Pedal Edema. absent: Calf Tenderness Additional comments: contracted lower legs, have heel pads w/dressings, appear dry - Neurological Exam Neurological Exam: Alert, Awake - Skin Skin Exam: Dry, Warm Assessment and Plan - Assessment and Plan (Free Text) Assessment: ASSESSMENT: Anemia, unknown etiology, Iron studies ok, guiac negative CHF Osteomyelitis R foot Hypokalemia UTI CVA PEG CAD PLAN: continue Jevity 65 cc/hr, check residuals monitor H/H & for overt GIB continue PPI on Zyvox & Merropenum as per ID pending renal US, r/o hydronephrosis check cbc/bmp in the am continue supportive care H/H steady now, no active GIB, if decrease H/H consider ct scan abdomen & pelvis Seen and discussed with Dr. Martínez. <Jeffrey Martínez V - Last Filed: 11/27/16 00:02> Objective - Vital Signs/Intake and Output Vital Signs (last 24 hours): Temp Pulse Resp BP Pulse Ox 97 F L 106 H 18 138/85 98 11/26/16 11:31 11/26/16 14:32 11/26/16 11:31 11/26/16 11:31 11/26/16 09:56 Intake and Output: 11/26/16 11/27/16 18:59 06:59 Intake Total 0 Output Total 500 Balance -500 - Labs Labs: 11/26/16 07:20 11/25/16 05:35 PT 12.5 Seconds (9.9-11.8) H 11/23/16 13:45 INR 1.16 (0.93-1.08) H 11/23/16 13:45 APTT 31.0 Seconds (23.7-30.8) H 11/23/16 13:45 Attending/Attestation - Attestation I have personally seen and examined this patient.: Yes I have fully participated in the care of the patient.: Yes I have reviewed all pertinent clinical information, including history, physical exam and plan: Yes Notes (Text): jenny
--- NOTE | 2016-11-26 10:10 | CP.PCM.PN ---
<Bisi Serrano - Last Filed: 11/26/16 10:07> Subjective - Date & Time of Evaluation Date of Evaluation: 11/26/16 Time of Evaluation: 10:07 - Subjective Subjective: 81 year old male was seen at bedside regarding b/l heel ulcers. Patient had offloading boots to heel feet b/l and dressings to his feet b/l. Patient appears in NAD. Patients left leg is severely contracted. Objective - Vital Signs/Intake and Output Vital Signs (last 24 hours): Temp Pulse Resp BP Pulse Ox 99.2 F 104 H 16 156/87 H 98 11/26/16 06:00 11/26/16 09:56 11/26/16 09:56 11/26/16 09:56 11/26/16 09:56 Intake and Output: 11/26/16 11/26/16 06:59 18:59 Intake Total 1080 Output Total 400 Balance 680 - Medications Medications: Current Medications Acetaminophen (Tylenol 325mg Tab) 650 mg PO Q4H PRN PRN Reason: Pain, Mild (1-3) Last Admin: 11/25/16 02:07 Dose: 650 mg Acetylcysteine (Acetylcysteine 20%) 4 ml IH BIDRESP PETTY Last Admin: 11/26/16 07:52 Dose: 4 ml Albuterol/Ipratropium (Duoneb 3 Mg/0.5 Mg (3 Ml) Ud) 3 ml IH [id number] PETTY Last Admin: 11/26/16 07:52 Dose: 3 ml Collagenase (Santyl) 0 gm TOP DAILY PETTY Last Admin: 11/25/16 10:51 Dose: Not Given Diltiazem HCl (Cardizem) 30 mg PO QID PETTY Last Admin: 11/25/16 22:23 Dose: 30 mg Fluconazole (Diflucan) 100 mg PO DAILY PETTY PRN Reason: Protocol Meropenem 1g/NS 100mL IVPB (Meropenem 1g/Ns 100ml Ivpb) 1 gm in 100 mls @ 100 mls/hr IVPB Q8 PETTY PRN Reason: Protocol Stop: 12/01/16 06:46 Last Admin: 11/26/16 06:21 Dose: 100 mls/hr Linezolid (Zyvox 600mg/300ml D5w) 600 mg in 300 mls @ 200 mls/hr IVPB Q12 PETTY PRN Reason: Protocol Stop: 12/01/16 10:01 Last Admin: 11/25/16 22:24 Dose: 200 mls/hr Lisinopril (Zestril) 5 mg GT BID [facility] Last Admin: 11/25/16 18:50 Dose: 5 mg Pantoprazole Sodium (Protonix Inj) 40 mg IVP 0600 [facility] Last Admin: 11/26/16 06:20 Dose: 40 mg - Labs Labs: 11/26/16 07:20 11/25/16 05:35 PT 12.5 Seconds (9.9-11.8) H 11/23/16 13:45 INR 1.16 (0.93-1.08) H 11/23/16 13:45 APTT 31.0 Seconds (23.7-30.8) H 11/23/16 13:45 - Constitutional Appears: No Acute Distress, Chronically Ill - Extremities Exam Additional comments: Lower extremity focused exam: Vasc: CFT< 5 seconds to all digits. Pulses non-palpable b/l Neuro: Unable to assess Derm: Full thickness ulcerations noted to heels b/l. Base of right heel is necrotic, base of left heel is a mixture of necrotic and fibrotic tissue. Ulcers probe to bone, mild malodor noted, no abscess formation noted b/l. +2 pitting james noted to feet b/l Excoriations noted to dorsum of feet b/l. Ortho: Severe contracture of the legs noted L>R - Neurological Exam Neurological Exam: Awake Assessment and Plan - Assessment and Plan (Free Text) Assessment: 81 year old male with bilateral gangrenous heel ulcerations Plan: patient examined and evaluated discussed with attending, Dr. Farris labs, chart and vitals reviewed heels cleansed with normal sterile saline b/l santyl and optifoam applied to heels bilaterally with offloading boots continue IV abx as per ID offloading boots to be worn at all times while in bed podiatry will continue to follow while patient is in house <Jose Angel Farris - Last Filed: 11/26/16 11:20> Objective - Vital Signs/Intake and Output Vital Signs (last 24 hours): Temp Pulse Resp BP Pulse Ox 99.2 F 104 H 16 156/87 H 98 11/26/16 06:00 11/26/16 10:01 11/26/16 09:56 11/26/16 10:01 11/26/16 09:56 Intake and Output: 11/26/16 11/26/16 06:59 18:59 Intake Total 1080 Output Total 400 Balance 680 - Medications Medications: Current Medications Acetaminophen (Tylenol 325mg Tab) 650 mg PO Q4H PRN PRN Reason: Pain, Mild (1-3) Last Admin: 11/25/16 02:07 Dose: 650 mg Acetylcysteine (Acetylcysteine 20%) 4 ml IH BIDRESP PETTY Last Admin: 11/26/16 07:52 Dose: 4 ml Albuterol/Ipratropium (Duoneb 3 Mg/0.5 Mg (3 Ml) Ud) 3 ml IH [id number] PETTY Last Admin: 11/26/16 07:52 Dose: 3 ml Collagenase (Santyl) 0 gm TOP DAILY PETTY Last Admin: 11/26/16 10:02 Dose: 1 applic Diltiazem HCl (Cardizem) 30 mg PO QID PETTY Last Admin: 11/26/16 10:00 Dose: 30 mg Fluconazole (Diflucan) 100 mg PO DAILY PETTY PRN Reason: Protocol Last Admin: 11/26/16 10:00 Dose: 100 mg Linezolid (Zyvox 600mg/300ml D5w) 600 mg in 300 mls @ 200 mls/hr IVPB Q12 PETTY PRN Reason: Protocol Stop: 12/01/16 10:01 Last Admin: 11/26/16 10:01 Dose: 200 mls/hr Ceftriaxone Sodium (Rocephin 1 Gram Ivpb) 1 gm in 100 mls @ 100 mls/hr IVPB DAILY PETTY PRN Reason: Protocol Last Admin: 11/26/16 10:37 Dose: 100 mls/hr Lisinopril (Zestril) 5 mg GT BID [facility] Last Admin: 11/26/16 10:01 Dose: 5 mg Pantoprazole Sodium (Protonix Inj) 40 mg IVP 0600 [facility] Last Admin: 11/26/16 06:20 Dose: 40 mg - Labs Labs: 11/26/16 07:20 11/25/16 05:35 PT 12.5 Seconds (9.9-11.8) H 11/23/16 13:45 INR 1.16 (0.93-1.08) H 11/23/16 13:45 APTT 31.0 Seconds (23.7-30.8) H 11/23/16 13:45 Attending/Attestation - Attestation I have personally seen and examined this patient.: Yes I have fully participated in the care of the patient.: Yes I have reviewed all pertinent clinical information, including history, physical exam and plan: Yes
[2016-11-26] MEDS ORDERED: cefTRIAXone 1 gm 1 GM/100 ML BAG IVPB SCH (10:30)
--- NOTE | 2016-11-26 10:34 | CP.PCM.PN ---
Subjective - Date & Time of Evaluation Date of Evaluation: 11/26/16 Time of Evaluation: 09:40 - Subjective Subjective: Patient is comfortable in bed, not in distress, afebrile overnight. Objective - Vital Signs/Intake and Output Vital Signs (last 24 hours): Temp Pulse Resp BP Pulse Ox 99.2 F 108 H 20 155/94 H 97 11/26/16 06:00 11/26/16 06:00 11/26/16 06:00 11/26/16 06:00 11/26/16 06:00 Intake and Output: 11/26/16 11/26/16 06:59 18:59 Intake Total 1080 Output Total 400 Balance 680 - Medications Medications: Current Medications Acetaminophen (Tylenol 325mg Tab) 650 mg PO Q4H PRN PRN Reason: Pain, Mild (1-3) Last Admin: 11/25/16 02:07 Dose: 650 mg Acetylcysteine (Acetylcysteine 20%) 4 ml IH BIDRESP PETTY Last Admin: 11/26/16 07:52 Dose: 4 ml Albuterol/Ipratropium (Duoneb 3 Mg/0.5 Mg (3 Ml) Ud) 3 ml IH [id number] PETTY Last Admin: 11/26/16 07:52 Dose: 3 ml Collagenase (Santyl) 0 gm TOP DAILY PETTY Last Admin: 11/25/16 10:51 Dose: Not Given Diltiazem HCl (Cardizem) 30 mg PO QID PETTY Last Admin: 11/25/16 22:23 Dose: 30 mg Fluconazole (Diflucan) 100 mg PO DAILY PETTY PRN Reason: Protocol Meropenem 1g/NS 100mL IVPB (Meropenem 1g/Ns 100ml Ivpb) 1 gm in 100 mls @ 100 mls/hr IVPB Q8 PETTY PRN Reason: Protocol Stop: 12/01/16 06:46 Last Admin: 11/26/16 06:21 Dose: 100 mls/hr Linezolid (Zyvox 600mg/300ml D5w) 600 mg in 300 mls @ 200 mls/hr IVPB Q12 [facility]TY PRN Reason: Protocol Stop: 12/01/16 10:01 Last Admin: 11/25/16 22:24 Dose: 200 mls/hr Lisinopril (Zestril) 5 mg GT BID [facility] Last Admin: 11/25/16 18:50 Dose: 5 mg Pantoprazole Sodium (Protonix Inj) 40 mg IVP 0600 [facility] Last Admin: 11/26/16 06:20 Dose: 40 mg - Labs Labs: 11/26/16 07:20 11/25/16 05:35 PT 12.5 Seconds (9.9-11.8) H 11/23/16 13:45 INR 1.16 (0.93-1.08) H 11/23/16 13:45 APTT 31.0 Seconds (23.7-30.8) H 11/23/16 13:45 - Constitutional Appears: Non-toxic, No Acute Distress - Head Exam Head Exam: NORMAL INSPECTION - ENT Exam ENT Exam: Mucous Membranes Moist - Neck Exam Neck Exam: absent: Lymphadenopathy, Meningismus - Respiratory Exam Respiratory Exam: Decreased Breath Sounds - Cardiovascular Exam Cardiovascular Exam: +S1, +S2 - GI/Abdominal Exam GI & Abdominal Exam: Soft. absent: Tenderness - Extremities Exam Additional comments: both feet with dressings in place Assessment and Plan - Assessment and Plan (Free Text) Plan: Assessment Dry gangrene of both heels, growing enterobacter and VRE on wound cx (from previous admission), consider osteomyelitis in a patient with peripheral vascular disease S/P debridement (during last admission) history of aspiration pneumonia, healthcare-associated history of Klebsiella in the urine, consider UTI history of left lower lobe healthcare-associated pneumonia atrial fibrillation HTN peripheral vascular disease history of cerebrovascular accident with left sided carotid artery disease benign prostatic hyperplasia dementia Plan continue Zyvox and change Merrem to Rocephin (day 3); blood cx are negative so far; urine cx showing yeast and we have started Diflucan (should complete 7 days of therapy; CXR does not show pneumonia - when ready for discharge, we can complete 1 more week of Zyvox and then 2 more weeks of PO Vantin with weekly ESR , CRP, CBC, CMP will continue to monitor clinically Discussed with Dr. Bowman
[2016-11-26 11:32] VITALS: BP 138/85; RESP 18; TEMP 97
--- NOTE | 2016-11-26 14:01 | US ---
PROCEDURE: Ultrasound of the Kidneys HISTORY: rule out hydronephrosis COMPARISON: None available. TECHNIQUE: Sonogram of the kidneys. FINDINGS: RIGHT KIDNEY: Measures: 12.1 x 4.6 x 4.4 cm. Normal in size, contour and echogenicity. No stone, solid mass lesion or hydronephrosis visualized. 3.6 x 3.0 x 2.4 cm upper pole cyst. 2.8 x 2.5 x 3.3 cm lower pole cyst. LEFT KIDNEY: Measures: 11.0 x 6.1 x 5.5 cm. Normal in size, contour and echogenicity. No stone, solid mass lesion or hydronephrosis visualized. 4.8 x 4.0 x 4.3 cm upper pole cyst. 1.2 cm lower pole cyst OTHER FINDINGS: None. IMPRESSION: Unremarkable renal sonogram. Bilateral renal cysts
[2016-11-26 14:33] VITALS: PULSE 106
[2016-11-27] MEDS ORDERED: Cefpodoxime (Vantin) 100 mg Tab PO SCH (10:00)
--- NOTE | 2016-12-04 15:49 | CP.PCM.CON ---
History of Present Illness - History of Present Illness History of Present Illness: History of patient is 81 year-old male who presents with mild CHF symptoms as well as atrial fibrillation tachycardia. Patient's past medical history is notable for severe neuromuscular disease, which has now left the patient incapacitated and bed bound. In addition, his previous cardiac history includes atrial fibrillation in which he has not been treated with anticoagulation because history of GI-bleed. 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 Patient does not exhibit any evidence for acute coronary symptom Review of Systems - Review of Systems Systems not reviewed;Unavailable: Other (severe neuromuscular disease, which has now left the patient incapacitated) Past Patient History - Infectious Disease Hx of Infectious Diseases: None - Tetanus Immunizations Tetanus Immunization: Unknown - Past Medical History & Family History Past Medical History?: Yes - Past Social History Smoking Status: Never Smoked - CARDIAC Hx Atrial Fibrillation: Yes ( not treated with anticoagulation, because hx of GI bleeds ) Hx Congestive Heart Failure: Yes Hx Heart Attack: Yes Hx Hypertension: Yes - PULMONARY Hx Bronchitis: Yes Hx Pneumonia: Yes - NEUROLOGICAL HX Cerebrovascular Accident: Yes - HEENT Hx HEENT Problems: No - RENAL Hx Chronic Kidney Disease: No - ENDOCRINE/METABOLIC Hx Endocrine Disorders: No - HEMATOLOGICAL/ONCOLOGICAL Hx Blood Disorders: Yes Hx Anemia: Yes (blood transfusion) Hx Cancer: Yes (prostate,skin) - INTEGUMENTARY Hx Dermatological Problems: Yes Other/Comment: red rash noted on back, chest, sacrum red, scortum, red. Bilateal heel ulcers,dry flaky skin - MUSCULOSKELETAL/RHEUMATOLOGICAL Hx Falls: No Other/Comment: severe neuromuscular disease, which has now left the patient incapacitated and bed bound. - GASTROINTESTINAL Hx Gastrointestinal Disorders: Yes (g tube 06/30/2016) Hx Gastroesophageal Reflux: Yes Other/Comment: incontinent of stool - GENITOURINARY/GYNECOLOGICAL Hx Genitourinary Disorders: Yes Hx Hematuria: Yes Hx Incontinence: Yes Hx Prostate Problems: Yes (bph) Hx Urinary Tract Infection: Yes - PSYCHIATRIC Hx Anxiety: Yes Hx Depression: Yes Hx Emotional Abuse: No Hx Physical Abuse: No - SURGICAL HISTORY Hx Angioplasty: Yes Hx Cardiac Catheterization: Yes (with stents) Hx Coronary Stent: Yes (x8) Other/Comment: tonsilectomy, laminectomy - ANESTHESIA Hx Anesthesia Reactions: No Hx Malignant Hyperthermia: No Meds Home Medications: Home Medication List Medication Instructions Recorded Confirmed Type Acetylcysteine 20% 4 ml IH [id number] 11/26/16 Rx Albuterol/Ipratropium [Duoneb 3 3 ml IH [id number] 11/26/16 Rx mg/0.5 mg (3 ml) UD] Cefpodoxime [Vantin] 100 mg PO Q12 #28 tab 11/26/16 Rx Collagenase [Santyl] 30 gm TOP DAILY 11/26/16 Rx Fluconazole [Diflucan] 100 mg PO DAILY #30 tab 11/26/16 Rx Furosemide [Lasix] 20 mg PO DAILY tab 11/26/16 Rx Lisinopril [Zestril] 5 mg GT BID tab 11/26/16 Rx Metoprolol Tartrate [Lopressor] 25 mg PO BID #0 tab 11/26/16 Rx Pantoprazole [Protonix Inj] 40 mg IVP 0600 vial 11/26/16 Rx diltiaZEM [Cardizem] 30 mg PO QID #90 tab 11/26/16 Rx Allergies/Adverse Reactions: Allergies Allergy/AdvReac Type Severity Reaction Status Date / Time No Known Allergies Allergy Verified 11/23/16 12:51 Physical Exam - Neck Exam Additional comments: Negative JVD - Respiratory Exam Respiratory Exam: absent: Rales - Cardiovascular Exam Cardiovascular Exam: +S1, +S2 - Extremities Exam Extremities exam: Negative for: pedal edema - Neurological Exam Additional comments: Patient can acknowledge hearing questions but cannot answer questions. Results - Vital Signs Recent Vital Signs: 11/26/16: blood pressure 138/85, heart rate is in the 90s, atrial fibrillation Last Vital Signs Temp 97 F L 11/26/16 11:31 Pulse 106 H 11/26/16 14:32 Resp 18 11/26/16 11:31 BP 138/85 11/26/16 11:31 Pulse Ox 98 11/26/16 09:56 - Labs Result Diagrams: 11/26/16 07:20 11/25/16 05:35 Labs: 11/26/16: Hemoglobin is 9.6, Chemistries: troponin is negative with a pro-BNP that is elevated - EKG Data When Compared to Previous EKG: No Significant Change Assessment & Plan - Assessment and Plan (Free Text) Assessment: 1. Mild CHF, which is better 2. Atrial fibrillation, with heart rate that is better 3. Neuromuscular disease 4.Old inferior wall CT 5. CAD - Date & Time Date: 11/26/16
== END 2016-11-26 18:26 | DRG 540 ==
LOC: ED 12:45 → ERH 14:44 → 2RSO 15:53
PROVIDERS: ADMIT Internal Medicine; ATTEND Internal Medicine
DX: M86.8X7 Other osteomyelitis, ankle and foot (principal); I96 Gangrene, not elsewhere classified; I11.0 Hypertensive heart disease with heart failure; L97.419 Non-pressure chronic ulcer of right heel and midfoot with unspecified severity; I50.9 Heart failure, unspecified; F03.90 Unspecified dementia, unspecified severity, without behavioral disturbance, psychotic disturbance, mood disturbance, and anxiety; L97.429 Non-pressure chronic ulcer of left heel and midfoot with unspecified severity; I73.9 Peripheral vascular disease, unspecified; N40.0 Benign prostatic hyperplasia without lower urinary tract symptoms; I48.91 Unspecified atrial fibrillation; M21.379 Foot drop, unspecified foot; E87.6 Hypokalemia; Z66 Do not resuscitate; I25.10 Atherosclerotic heart disease of native coronary artery without angina pectoris; D64.9 Anemia, unspecified; B96.89 Other specified bacterial agents as the cause of diseases classified elsewhere; M48.9 Spondylopathy, unspecified; Z86.73 Personal history of transient ischemic attack (TIA), and cerebral infarction without residual deficits; Z79.82 Long term (current) use of aspirin; Z95.5 Presence of coronary angioplasty implant and graft; Z87.01 Personal history of pneumonia (recurrent); Z87.440 Personal history of urinary (tract) infections; Z93.1 Gastrostomy status